=== PATIENT | male | born 1960 | race African-American/Black ===

== ENCOUNTER 2017-11-12 11:31 | Observation (INO) | payer OTHER ==
--- NOTE | 2017-11-12 12:58 | PDOC ---
History of Present Illness - General Chief Complaint: Blood Pressure Problem Stated Complaint: LOW BLOOD PRESSURE Time Seen by Provider: 11/12/17 12:49 History Source: EMS - History of Present Illness Initial Comments: 11/12/17 12:58 Patient is a 57 year old male with a PMH of epilepsy, NIDDM, Vitamin D deficiency, GERD, presents to our ED following conflicting U/S reports that showed a clot in the L IJV. As per [facility] paperwork, patient @ baseline mental status. VS remarkable for BP 104/72 Past History - Past Medical History Allergies/Adverse Reactions: Allergies Allergy/AdvReac Type Severity Reaction Status Date / Time No Known Allergies Allergy Verified 11/12/17 14:31 Home Medications: Ambulatory Orders Acetaminophen Oral Solution [Tylenol Oral Solution -] 20.3 ml GT DAILY 11/12/17 Acetaminophen [Tylenol] 650 mg GT Q6H PRN 11/12/17 Albuterol 0.083% Nebulizer Shanae [Ventolin 0.083% Nebulizer Soln -] 1 neb NEB Q6H 11/12/17 Ascorbic Acid [Vitamin C] 500 mg GT DAILY 11/12/17 Calcium Carbonate/Vitamin D3 [Calcium 500 + Vit D 200 Caplet] 1 each GT DAILY Collagenase Clostridium Hist. [Santyl] 250 unit TP DAILY 11/12/17 Ergocalciferol (Vitamin D2) [Vitamin D2] 50,000 unit GT FR 11/12/17 Famotidine 20 mg GT DAILY 11/12/17 Ferrous Sulfate *Liquid* [Feosol] 6.8 ml GT BID 11/12/17 Fludrocortisone Acetate 0.1 mg GT DAILY 11/12/17 Gabapentin 300 mg GT BID 11/12/17 Heparin - 5,000 unit SQ Q12H 11/12/17 L. Acidophilus/Pectin, [place] [Acidophilus Capsule] 2 each GT DAILY 11/12/17 Magnesium Oxide 400 mg GT BID 11/12/17 Meropenem [Merrem] 1 gm IV Q8H 11/12/17 Midodrine HCl 5 mg GT TID 11/12/17 Multivitamins [Tab-A-Vit -] 1 tab GT DAILY 11/12/17 Oxycodone HCl/Acetaminophen [Percocet 5-325 mg Tablet] 2 tab GT Q4H PRN Valproic Acid (As Sodium Salt) [Valproic Acid] 10 ml GT BID 11/12/17 levETIRAcetam [Keppra Oral Solution -] 1,500 mg GT Q12H 11/12/17 Review of Systems - Review of Systems Able to Perform ROS?: No (non-verbal @ baseline) *Physical Exam - Vital Signs Last Vital Signs Temp Pulse Resp BP Pulse Ox 16 11/12/17 11:40 - Physical Exam Comments: 11/12/17 14:54 Alert, tracks with eyes, s/p R sided craniectomy Contracted B/L UE; edematous, non-erythematous LUE, 2+ radial pulses B/L, Lungs CLTA RRR, S1/S2 Soft abdomen, no hernia/mass ED Treatment Course - LABORATORY CBC & Chemistry Diagram: 11/12/17 15:50 11/12/17 15:50 Medical Decision Making - Medical Decision Making 11/12/17 13:05 57 year old male w/severe CP with a concern for clot in L IJV. Physical exam significant for LUE edema, 2+ pulse, severe contraction. Will repeat U/S to r/ o clot. Basic labs pending 11/12/17 14:56 Bedside U/S shows no clot in IJV/Cephalic/Brachial veins; CBC, CMP pending 11/12/17 15:35 Patient remains hypotensive 88/63 -- 2 L IV NS 11/12/17 17:06 CBC 14, Hb 8 -- likely 2/2 to hypotension. No previous laboratory values in EMR CMP significant for elevated LFT's -- will obtain Liver U/S to r/o liver mass, however likely hepatitis. 11/12/17 17:37 Repeat BP 103/71 11/12/17 18:48 BP 102/63 Patient counseled on POC. Responds to voice with double blinks and raising one finger. Patient signed out to Dr. Cid (Resident) and Dr. Baker (Attending). Planned disposition is liver U/S with specific contact to patient's PMD @ [facility] with any significant results and discharge to [facility]. *DC/Admit/Observation/Transfer Diagnosis at time of Disposition: History of diagnostic ultrasound - Discharge Dispostion Disposition: [facility] Condition at time of disposition: Good Admit: No - Referrals Referrals: ON STAFF,NOT [Primary Care Provider] - - Patient Instructions - Post Discharge Activity
[2017-11-12] MEDS ORDERED: SODIUM CHLORIDE 0.9% 500 ML INFUS.BAG IV ONE (14:45)
[2017-11-12 16:20] LABS: BASO % 0.9 % (0-2.0); HEMOGLOBIN 8.3 GM/dL (11.7-16.9); LYMPH % 20.8 % (8-40); MCH 31.5 pg (25.7-33.7); MEAN CELL VOLUME 95.3 fl (80-96); MEAN PLT VOLUME 11.8 fl (7.5-11.1); MONO % 6.3 % (3.8-10.2); PLATELET COUNT 462 K/MM3 (134-434); RBC 2.63 M/mm3 (4.00-5.60); RDW 18.6 % (11.9-15.9); WHITE BLOOD COUNT 14.3 K/mm3 (4.0-10.0)
[2017-11-12 16:29] LABS: INR 1.23 (0.82-1.09); PROTHROMBIN TIME (PATIENT) 13.9 SEC (9.98-11.88)
[2017-11-12 16:32] LABS: ACTIVATED PTT 32.7 SECONDS (26.9-34.4)
[2017-11-12 16:40] LABS: ALBUMIN 1.6 g/dl (3.4-5.0); ANION GAP 5 (8-16); BLOOD UREA NITROGEN 20 mg/dL (7-18); CALCIUM 8.5 mg/dL (8.5-10.1); CHLORIDE 109 mmol/L (98-107); CO2 33 mmol/L (21-32); CREATININE 0.3 mg/dL (0.7-1.3); GLUCOSE,RANDOM 74 mg/dL (74-106); POTASSIUM 3.6 mmol/L (3.5-5.1); SGOT/AST 114 U/L (15-37); SGPT/ALT 134 U/L (12-78); SODIUM 147 mmol/L (136-145)
[2017-11-12 16:41] LABS: ALK PHOS 229 U/L (45-117); BILIRUBIN,TOTAL 0.3 mg/dL (0.2-1.0); TOT PROT 6.9 g/dl (6.4-8.2)
--- NOTE | 2017-11-12 16:50 | PDOC ---
Attending Attestation - HPI HPI: 11/12/17 16:50 The patient is a 57 year old male with a significant past medical history of severe CP, who presents to the emergency department for evaluation following an U/S reports that showed a clot in the left jugular vein. The patient is also hypotensive on arrival. The patient is non verbal. - Medical Decision Making 11/12/17 16:50 Documentation prepared by Nat Talavera, acting as medical device for Justus Boss MD <Nat Talavera - Last Filed: 11/12/17 16:50> - Resident Resident Name: Jayashree Kennedy - ED Attending Attestation I have performed the following: I have examined & evaluated the patient, The case was reviewed & discussed with the resident, I agree w/resident's findings & plan, Exceptions are as noted - Physicial Exam PE: 11/12/17 17:17 pt is awake, non-verbal, doesnt follow commands + right craniectomy scar perrla trach in place LUE edema with picc line in place sacral decub: stage 4 - Medical Decision Making 11/12/17 17:19 Frail-appearing 57-year-old male with history of craniectomy, chronically vent- dependent presents for evaluation of questionable left IJ DVT. Patient is intermittently hypotensive and is afebrile rectally. Upper extremity Doppler ultrasound shows no evidence of DVT. Patient is noted to have mild leukocytosis and mild hypernatremia. H&H is also low without a comparison baseline available. Will hydrate. Will obtain right upper quadrant ultrasound to evaluate for abnormal LFTs. May consider packed cell transfusion. Will contact [facility] for previous lab work. Likely admission. <Justus Boss - Last Filed: 11/12/17 17:20>
[2017-11-12 17:18] LABS: PLATELET ESTIMATE SLT INCREASE
--- NOTE | 2017-11-12 22:29 | PDOC ---
*Physical Exam - Vital Signs Last Vital Signs Temp Pulse Resp BP Pulse Ox 97.5 F L 72 17 102/63 100 11/12/17 18:30 11/12/17 22:08 11/12/17 22:08 11/12/17 18:30 11/12/17 22:08 ED Treatment Course - LABORATORY CBC & Chemistry Diagram: 11/12/17 15:50 11/12/17 15:50 - ADDITIONAL ORDERS Additional order review: Laboratory Results 11/12/17 11/12/17 11/12/17 17:12 15:50 15:50 PT with INR 13.90 H INR 1.23 H PTT (Actin FS) 32.7 Sodium 147 H Potassium 3.6 Chloride 109 H Carbon Dioxide 33 H Anion Gap 5 L BUN 20 H Creatinine 0.3 L Creat Clearance w eGFR > 60 Random Glucose 74 Calcium 8.5 Total Bilirubin 0.3 AST 114 H ALT 134 H Alkaline Phosphatase 229 H Total Protein 6.9 Albumin 1.6 L Stool Occult Blood Negative 11/12/17 15:50 RBC 2.63 L MCV 95.3 MCHC 33.0 RDW 18.6 H MPV 11.8 H Neutrophils % 68.0 Lymphocytes % 20.8 Monocytes % 6.3 Eosinophils % 4.0 Basophils % 0.9 - Medications Given in the ED: ED Medications Discontinued Medications Generic Name Dose Route Start Last Admin Trade Name Freq PRN Reason Stop Dose Admin Sodium Chloride 1,000 ml 11/12/17 14:45 11/12/17 15:03 Normal Saline - IV 11/12/17 14:46 1,000 ml ONCE ONE Administration *DC/Admit/Observation/Transfer Diagnosis at time of Disposition: History of diagnostic ultrasound, Elevated liver enzymes - Discharge Dispostion Disposition: [facility] Condition at time of disposition: Good Admit: Yes - Referrals Referrals: ON STAFF,NOT [Primary Care Provider] - - Patient Instructions - Post Discharge Activity
[2017-11-12] MEDS ORDERED: SODIUM CHLORIDE 1,000 ML IV SCH (23:15)
--- NOTE | 2017-11-12 23:24 | HP ---
CHIEF COMPLAINT: LUE swelling HISTORY OF PRESENT ILLNESS: Patient s a 57 yo nonverbal, M from [facility] with a pmhx of epilepsy, DM, Vit D def, GERD, chronically vented patient, sacral decub stage 4, presented after suspicion of LUE DVT. There were conflicting reports of a DVT. Initial reading from [place] revealed LUE dvt but Duplex reading in ER unremarkable for dvt. Patient denies pain and discomfort. Patient recently completed 28 day course of IV Meropenem via PICC line (LUE) on the for Psuedomonas infection. PICC line is still in place. ER course was notable for: (1) Ast 114, ALT 134, ALK phos 229 Recent Travel: n/a PAST MEDICAL HISTORY: per HPI PAST SURGICAL HISTORY: craniectomy Social History: Smoking: n/a Alcohol:n/a Drugs: n/a Family History: Allergies No Known Allergies Allergy (Verified 11/12/17 14:31) HOME MEDICATIONS: Home Medications Medication Instructions Recorded Acetaminophen Oral Solution 20.3 ml GT DAILY 11/12/17 [Tylenol Oral Solution -] Acetaminophen [Tylenol] 650 mg GT Q6H PRN 11/12/17 Albuterol 0.083% Nebulizer Shanae 1 neb NEB Q6H 11/12/17 [Ventolin 0.083% Nebulizer Soln -] Ascorbic Acid [Vitamin C] 500 mg GT DAILY 11/12/17 Calcium Carbonate/Vitamin D3 1 each GT DAILY 11/12/17 [Calcium 500 + Vit D 200 Caplet] Collagenase Clostridium Hist. 250 unit TP DAILY 11/12/17 [Santyl] Ergocalciferol (Vitamin D2) 50,000 unit GT FR 11/12/17 [Vitamin D2] Famotidine 20 mg GT DAILY 11/12/17 Ferrous Sulfate *Liquid* [Feosol] 6.8 ml GT BID 11/12/17 Fludrocortisone Acetate 0.1 mg GT DAILY 11/12/17 Gabapentin 300 mg GT BID 11/12/17 Heparin - 5,000 unit SQ Q12H 11/12/17 L. Acidophilus/Pectin, [place] 2 each GT DAILY 11/12/17 [Acidophilus Capsule] Magnesium Oxide 400 mg GT BID 11/12/17 Meropenem [Merrem] 1 gm IV Q8H 11/12/17 Midodrine HCl 5 mg GT TID 11/12/17 Multivitamins [Tab-A-Vit -] 1 tab GT DAILY 11/12/17 Oxycodone HCl/Acetaminophen 2 tab GT Q4H PRN 11/12/17 [Percocet 5-325 mg Tablet] Valproic Acid (As Sodium Salt) 10 ml GT BID 11/12/17 [Valproic Acid] levETIRAcetam [Keppra Oral 1,500 mg GT Q12H 11/12/17 Solution -] REVIEW OF SYSTEMS unable to obtain ROS PHYSICAL EXAMINATION Vital Signs - 24 hr 11/12/17 11/12/17 11/12/17 11:35 11:40 12:56 Temperature 96.7 F L Pulse Rate 62 Pulse Rate [ 61 Left Radial] Respiratory 16 16 20 Rate Blood Pressure 104/72 Blood Pressure 98/61 [Right Arm] O2 Sat by Pulse 100 98 Oximetry (%) 11/12/17 11/12/17 11/12/17 13:55 15:36 16:04 Temperature Pulse Rate Pulse Rate [ 60 63 Left Radial] Respiratory 18 16 18 Rate Blood Pressure Blood Pressure 89/60 88/62 [Right Arm] O2 Sat by Pulse 98 98 Oximetry (%) 11/12/17 11/12/17 11/12/17 18:24 18:30 20:22 Temperature 97.5 F L Pulse Rate Pulse Rate [ 64 Left Radial] Respiratory 17 18 16 Rate Blood Pressure Blood Pressure 102/63 [Right Arm] O2 Sat by Pulse 98 Oximetry (%) 11/12/17 22:08 Temperature Pulse Rate 72 Pulse Rate [ Left Radial] Respiratory 17 Rate Blood Pressure Blood Pressure [Right Arm] O2 Sat by Pulse 100 Oximetry (%) GENERAL: frail appearing, alert and coherent, in NAD HEAD: r sided craniectomy scar, L. Facial swelling EYES: Pupils equal, round and reactive to light, anicteric EARS, NOSE, THROAT: oropharynx clear without exudates. Moist mucous membranes. LUNGS: Trach in place, CTA b/l, Vent settings: Rate 16, TV 350, FI02 40, PEEP 5 HEART: Regular rate and rhythm, normal S1 and S2 without murmur, rub or gallop. ABDOMEN: PEG tube, Soft, +BS, no grimacing on palpation UPPER EXTREMITIES: 2+ pulses, LUE swelling LOWER EXTREMITIES: No peripheral edema. Laboratory Results - last 24 hr 11/12/17 11/12/17 11/12/17 15:50 15:50 15:50 WBC 14.3 H RBC 2.63 L Hgb 8.3 L Hct 25.0 L MCV 95.3 MCH 31.5 MCHC 33.0 RDW 18.6 H Plt Count 462 H MPV 11.8 H Neutrophils % 68.0 Lymphocytes % 20.8 Monocytes % 6.3 Eosinophils % 4.0 Basophils % 0.9 Platelet Estimate Slt increase Platelet Comment PT with INR 13.90 H INR 1.23 H PTT (Actin FS) 32.7 Sodium 147 H Potassium 3.6 Chloride 109 H Carbon Dioxide 33 H Anion Gap 5 L BUN 20 H Creatinine 0.3 L Creat Clearance w eGFR > 60 Random Glucose 74 Calcium 8.5 Total Bilirubin 0.3 AST 114 H ALT 134 H Alkaline Phosphatase 229 H Total Protein 6.9 Albumin 1.6 L Stool Occult Blood 11/12/17 17:12 WBC RBC Hgb Hct MCV MCH MCHC RDW Plt Count MPV Neutrophils % Lymphocytes % Monocytes % Eosinophils % Basophils % Platelet Estimate Platelet Comment PT with INR INR PTT (Actin FS) Sodium Potassium Chloride Carbon Dioxide Anion Gap BUN Creatinine Creat Clearance w eGFR Random Glucose Calcium Total Bilirubin AST ALT Alkaline Phosphatase Total Protein Albumin Stool Occult Blood Negative ASSESSMENT/PLAN: Patient s a 57 yo nonverbal, M from [facility] with a pmhx of epilepsy, DM, Vit D def, GERD, chronically vented patient, was found to have elevated LFT's. #Transaminitis -Abdominal US: Unremarkable -FU hep Panel -FU am labs -Liver U/S #LUE/L sided Facial Swelling -PICC line as possible source -Duplex LUE negative for DVT -FU repeat duplex #DM -BGM -ISS #Hx of Epilepsy -cont. home med -Keppra, Valproic acid #FEN -No IV fluids -WNL -Tube feeds Jevity 1.0. Continuous 200ml flush before feeds, 200ml flush after feeds #DVT ppx -Hep SQ BID Visit type - Emergency Visit Emergency Visit: Yes ED Registration Date: 11/12/17 Care time: The patient presented to the Emergency Department on the above date and was hospitalized for further evaluation of their emergent condition. - New Patient This patient is new to me today: Yes Date on this admission: 11/13/17 - Critical Care Critical Care patient: No Hospitalist Screening - Colonoscopy Questionnaire Colonoscopy Questionnaire: Colonoscopy Questionnaire - Patient: 50 - 75 years old and never had a screening colonoscopy: Unknown History of colon or rectal polyps, or CA: Unknown History of IBD, Crohn's disease or UC: Unknown History of abdominal radiation therapy as a child: Unknown - Relative: 1 with colon or rectal CA, or polyps at age 60 or younger: Unknown Colon or rectal CA diagnosed at age 45 or younger: Unknown Multiple relatives with colon or rectal CA: Unknown - Outcome: Screening Result: Negative Screen
[2017-11-13] MEDS: HEPARIN NA (PORCINE) 5,000 UNITS/ML 1ML VIAL SQ SCH ×3 (01:00→22:39)
[2017-11-13] MEDS: levETIRAcetam 500 MG/5 ML ORAL SOLUTION (UNIT-DOSE CUPS) GT SCH ×3 (01:00→22:50)
[2017-11-13] MEDS: ALBUTEROL SO4 0.083% IH SOL 2.5 MG/3 ML VIAL.NEB. NEB SCH ×5 (01:00→20:50)
--- NOTE | 2017-11-13 01:33 | PN ---
Teaching Attending Note Name of Resident: Daija Alamo ATTENDING PHYSICIAN STATEMENT I saw and evaluated the patient. I reviewed the resident's note and discussed the case with the resident. I agree with the resident's findings and plan as documented. SUBJECTIVE: This is a 57 year old man with a history of type 2 DM, seizures, GERD, vitamin D deficiency, ventilator-dependent chronic hypoxic respiratory failure who was sent to the ED from [facility] because of a possible clot in his left internal jugular vein. The patient is non-verbal but nods his head yes/no. He has a PICC in his left arm for a recent course of Merrem. OBJECTIVE: Vital Signs Period Temp Pulse Resp BP Sys/Guzman Pulse Ox Last 24 Hr 96.7 F-97.5 F 60-72 16-20 88-104/60-72 98-100 GENERAL: On vent via trach HEART: S1S2, RRR LUNGS: Clear ABDOMEN: Soft, non-distended, normal BS, G-tube in place EXTREMITIES: (+) edema of LUE, left side of neck and face Laboratory Tests 11/12/17 11/12/17 11/12/17 15:50 15:50 15:50 WBC 14.3 H RBC 2.63 L Hgb 8.3 L Hct 25.0 L MCV 95.3 MCH 31.5 MCHC 33.0 RDW 18.6 H Plt Count 462 H MPV 11.8 H Neutrophils % 68.0 Lymphocytes % 20.8 Monocytes % 6.3 Eosinophils % 4.0 Basophils % 0.9 Platelet Estimate Slt increase Platelet Comment PT with INR 13.90 H INR 1.23 H PTT (Actin FS) 32.7 Sodium 147 H Potassium 3.6 Chloride 109 H Carbon Dioxide 33 H Anion Gap 5 L BUN 20 H Creatinine 0.3 L Creat Clearance w eGFR > 60 Random Glucose 74 Calcium 8.5 Total Bilirubin 0.3 AST 114 H ALT 134 H Alkaline Phosphatase 229 H Total Protein 6.9 Albumin 1.6 L Stool Occult Blood 11/12/17 17:12 WBC RBC Hgb Hct MCV MCH MCHC RDW Plt Count MPV Neutrophils % Lymphocytes % Monocytes % Eosinophils % Basophils % Platelet Estimate Platelet Comment PT with INR INR PTT (Actin FS) Sodium Potassium Chloride Carbon Dioxide Anion Gap BUN Creatinine Creat Clearance w eGFR Random Glucose Calcium Total Bilirubin AST ALT Alkaline Phosphatase Total Protein Albumin Stool Occult Blood Negative Home Medications Medication Instructions Recorded Acetaminophen Oral Solution 20.3 ml GT DAILY 11/12/17 [Tylenol Oral Solution -] Acetaminophen [Tylenol] 650 mg GT Q6H PRN 11/12/17 Albuterol 0.083% Nebulizer Shanae 1 neb NEB Q6H 11/12/17 [Ventolin 0.083% Nebulizer Soln -] Ascorbic Acid [Vitamin C] 500 mg GT DAILY 11/12/17 Calcium Carbonate/Vitamin D3 1 each GT DAILY 11/12/17 [Calcium 500 + Vit D 200 Caplet] Collagenase Clostridium Hist. 250 unit TP DAILY 11/12/17 [Santyl] Ergocalciferol (Vitamin D2) 50,000 unit GT FR 11/12/17 [Vitamin D2] Famotidine 20 mg GT DAILY 11/12/17 Ferrous Sulfate *Liquid* [Feosol] 6.8 ml GT BID 11/12/17 Fludrocortisone Acetate 0.1 mg GT DAILY 11/12/17 Gabapentin 300 mg GT BID 11/12/17 Heparin - 5,000 unit SQ Q12H 11/12/17 L. Acidophilus/Pectin, [place] 2 each GT DAILY 11/12/17 [Acidophilus Capsule] Magnesium Oxide 400 mg GT BID 11/12/17 Meropenem [Merrem] 1 gm IV Q8H 11/12/17 Midodrine HCl 5 mg GT TID 11/12/17 Multivitamins [Tab-A-Vit -] 1 tab GT DAILY 11/12/17 Oxycodone HCl/Acetaminophen 2 tab GT Q4H PRN 11/12/17 [Percocet 5-325 mg Tablet] Valproic Acid (As Sodium Salt) 10 ml GT BID 11/12/17 [Valproic Acid] levETIRAcetam [Keppra Oral 1,500 mg GT Q12H 11/12/17 Solution -] ASSESSMENT AND PLAN: his is a 57 year old man with a history of type 2 DM, seizures, GERD, vitamin D deficiency, ventilator-dependent chronic hypoxic respiratory failure who comes to the ED from [facility] with swelling of his left arm and a possible clot in his left internal jugular vein. 1. LUE swelling - No DVT seen on venous doppler in ED 2. Hepatic transaminitis - No previous labs available - RUQ US is limited but shows gallstones with slightly thickened gallbladder wall - Repeat LFTs in AM and consider HIDA (will not be able to do MRCP secondary to vent) - NPO - IV fluid 3. Hypotension - Continue Florinef, Midodrine - IV fluid 4. Hypernatremia - Probably hypovolemic - IV NS - Monitor electrolytes 5. Chronic hypoxic respiratory failure - Ventilator-dependent 6. Seizure disorder - Continue Keppra, valproic acid 7. Type 2 DM 8. GERD 9. Vitamin D deficiency Continue vitamin D supplementation
[2017-11-13] MEDS ORDERED: oxyCODONE HCL 5 MG TABLET GT PRN (02:03)
[2017-11-13] MEDS ORDERED: ACETAMINOPHEN 650 MG/20.3 ML ORAL SOLUTION (CUPS) GT PRN (02:04)
[2017-11-13 03:31] VITALS: BMI 19.1
[2017-11-13] MEDS: INSULIN SLIDING SCALE (NOVOLOG) 1 VIAL SQ SCH ×4 (06:05→22:40)
--- NOTE | 2017-11-13 07:20 | PN ---
Physical Exam: SUBJECTIVE: Patient seen and examined OBJECTIVE: Vital Signs Intake & Output 11/10/17 11/11/17 11/12/17 11/13/17 23:59 23:59 23:59 23:59 Intake Total 100 424 Output Total 700 Balance 100 -276 Weight 49.169 kg 48.996 kg Period Temp Pulse Resp BP Sys/Guzman Pulse Ox Last 24 Hr 96.7 F-98.6 F 60-78 16-20 88-124/50-72 92-100 GENERAL: The patient is awake, alert, and fully oriented, in no acute distress. HEAD: Normal with no signs of trauma. EYES: PERRL, extraocular movements intact, sclera anicteric, conjunctiva clear. No ptosis. ENT: Ears normal, nares patent, oropharynx clear without exudates, moist mucous membranes. NECK: Trachea midline, full range of motion, supple. LUNGS: Breath sounds equal, clear to auscultation bilaterally, no wheezes, no crackles, no accessory muscle use. HEART: Regular rate and rhythm, S1, S2 without murmur, rub or gallop. ABDOMEN: Soft, nontender, nondistended, normoactive bowel sounds, no guarding, no rebound, no hepatosplenomegaly, no masses. EXTREMITIES: 2+ pulses, warm, well-perfused, no edema. NEUROLOGICAL: Cranial nerves II through XII grossly intact. Normal speech, gait not observed. PSYCH: Normal mood, normal affect. SKIN: Warm, dry, normal turgor, no rashes or lesions noted Laboratory Results - last 24 hr CBC, BMP 11/12/17 15:50 11/12/17 15:50 11/12/17 11/12/17 11/12/17 15:50 15:50 15:50 WBC 14.3 H RBC 2.63 L Hgb 8.3 L Hct 25.0 L MCV 95.3 MCH 31.5 MCHC 33.0 RDW 18.6 H Plt Count 462 H MPV 11.8 H Neutrophils % 68.0 Lymphocytes % 20.8 Monocytes % 6.3 Eosinophils % 4.0 Basophils % 0.9 Platelet Estimate Slt increase Platelet Comment PT with INR 13.90 H INR 1.23 H PTT (Actin FS) 32.7 Sodium 147 H Potassium 3.6 Chloride 109 H Carbon Dioxide 33 H Anion Gap 5 L BUN 20 H Creatinine 0.3 L Creat Clearance w eGFR > 60 POC Glucometer Random Glucose 74 Calcium 8.5 Total Bilirubin 0.3 AST 114 H ALT 134 H Alkaline Phosphatase 229 H Total Protein 6.9 Albumin 1.6 L Stool Occult Blood 11/12/17 11/13/17 17:12 06:04 WBC RBC Hgb Hct MCV MCH MCHC RDW Plt Count MPV Neutrophils % Lymphocytes % Monocytes % Eosinophils % Basophils % Platelet Estimate Platelet Comment PT with INR INR PTT (Actin FS) Sodium Potassium Chloride Carbon Dioxide Anion Gap BUN Creatinine Creat Clearance w eGFR POC Glucometer 162 Random Glucose Calcium Total Bilirubin AST ALT Alkaline Phosphatase Total Protein Albumin Stool Occult Blood Negative Active Medications Generic Name Dose Route Start Last Admin Trade Name Freq PRN Reason Stop Dose Admin Acetaminophen 325 mg 11/13/17 02:04 Tylenol Oral Solution - GT Q4H PRN PAIN LEVEL 6-10 Albuterol Sulfate 1 amp 11/12/17 23:45 11/13/17 01:00 Ventolin 0.083% Nebulizer Soln - NEB 1 amp RQID RADHA Administration Ascorbic Acid 500 mg 11/13/17 10:00 Vitamin C - GT DAILY [facility] Calcium Carbonate/Cholecalciferol 1 tab 11/13/17 10:00 Os-Manuel 500+D - GT DAILY RADHA Collagenase 1 applic 11/13/17 10:00 Santyl - TP DAILY [facility] Ferrous Sulfate 300 mg 11/13/17 10:00 Feosol GT BID RADHA Gabapentin 300 mg 11/13/17 10:00 Neurontin - GT BID RADHA Heparin Sodium (Porcine) 5,000 unit 11/12/17 23:45 11/13/17 01:00 Heparin - SQ 5,000 unit BID RADHA Administration Insulin Aspart 1 vial 11/13/17 07:00 11/13/17 06:05 Novolog Vial Sliding Scale - SQ 2 units ACHS RADHA Administration Protocol Lactobacillus Acidophilus 2 tab 11/13/17 10:00 Bacid - GT DAILY RADHA Levetiracetam 1,500 mg 11/12/17 23:45 11/13/17 01:00 Keppra Oral Solution - GT 1,500 mg BID RADHA Administration Magnesium Oxide 400 mg 11/13/17 10:00 Mag-Ox - GT BID RADHA Midodrine 5 mg 11/13/17 10:00 Proamatine - GT TID-MID RADHA Oxycodone HCl 5 mg 11/13/17 02:03 Roxicodone - GT Q4H PRN PAIN LEVEL 6-10 Ranitidine HCl 150 mg 11/13/17 10:00 Zantac Oral Solution - GT DAILY [facility] Valproate Sodium 500 mg 11/13/17 10:00 Depakene - GT BID RADHA LUE US - 11/12 - IMPRESSION: Very limited examination due to the patient's body habitus. Patient is on a vent and is contracted. There is no evidence of deep venous thromboses involving the left internal jugular, subclavian and brachial vein. There is no evidence of deep venous thromboses in visualized portion of the ulnar and radial vein. There is no evidence of thrombosis in visualized segments of the upper and lower cephalic as well as visualized segments of the upper and lower basilic vein. Correlate clinically to determine further evaluation and follow-up. RUQ U/S 11/12 - IMPRESSION: 1. Limited study with cholelithiasis and mildly heterogeneous liver. 2. Echogenic right kidney consistent with medical renal disease. Please see above discussion. XR - 11/12 - IMPRESSION: Markedly limited study as described above. ASSESSMENT/PLAN: Patient s a 57 yo nonverbal, M from [facility] with a pmhx of epilepsy, DM, Vit D def, GERD, chronically vented patient, was found to have elevated LFT's. #Transaminitis -Abdominal US: Unremarkable -FU hep Panel -FU am labs -Liver U/S #LUE/L sided Facial Swelling -PICC line as possible source -Duplex LUE negative for DVT -FU repeat duplex #DM -BGM -ISS #Hx of Epilepsy -cont. home med -Keppra, Valproic acid #FEN -No IV fluids -WNL -Tube feeds Jevity 1.0. Continuous 200ml flush before feeds, 200ml flush after feeds #DVT ppx -Hep SQ BID
[2017-11-13 08:06] LABS: HEMATOCRIT 25.7 % (35.4-49); HEMOGLOBIN 8.6 GM/dL (11.7-16.9); MCH 31.7 pg (25.7-33.7); MCHC 33.3 g/dl (32.0-35.9); MEAN CELL VOLUME 95.2 fl (80-96); MEAN PLT VOLUME 11.2 fl (7.5-11.1); PLATELET COUNT 466 K/MM3 (134-434); RDW 18.6 % (11.9-15.9); WHITE BLOOD COUNT 14.5 K/mm3 (4.0-10.0)
[2017-11-13 08:23] LABS: ALBUMIN 1.5 g/dl (3.4-5.0); ANION GAP 5 (8-16); BLOOD UREA NITROGEN 22 mg/dL (7-18); CALCIUM 8.3 mg/dL (8.5-10.1); CHLORIDE 109 mmol/L (98-107); CO2 33 mmol/L (21-32); GLUCOSE,RANDOM 108 mg/dL (74-106); MAGNESIUM 2.2 mg/dL (1.8-2.4); POTASSIUM 3.8 mmol/L (3.5-5.1); SODIUM 147 mmol/L (136-145)
[2017-11-13 08:26] LABS: ALK PHOS 205 U/L (45-117); BILIRUBIN,TOTAL 0.2 mg/dL (0.2-1.0); CREATININE 0.4 mg/dL (0.7-1.3); PHOSPHOROUS 3.4 mg/dL (2.5-4.9); SGOT/AST 85 U/L (15-37); SGPT/ALT 110 U/L (12-78); TOT PROT 6.7 g/dl (6.4-8.2)
[2017-11-13] MEDS ORDERED: PT OWN MED DRAWER 7, Y5N ONE ×3 (09:36→22:30)
[2017-11-13] MEDS: VALPROATE SODIUM 250 MG/5 ML UNIT DOSE CUP GT SCH ×2 (09:42→22:39)
[2017-11-13] MEDS: RANITIDINE HCL 150 MG/10 ML UNIT-DOSE GT SCH (09:42)
[2017-11-13] MEDS: ASCORBIC ACID 500 MG TABLET (FP) GT SCH (09:43)
[2017-11-13] MEDS: GABAPENTIN 300 MG CAPSULE (FP) GT SCH ×2 (09:43→22:39)
[2017-11-13] MEDS: LACTOBACILLUS ACIDOPHILUS 1 TABLET GT SCH (09:43)
[2017-11-13] MEDS: CALCIUM 500MG/VIT-D 200 UNITS COMBO TABLET (FP) GT SCH (09:43)
[2017-11-13] MEDS: COLLAGENASE CLOSTRIDIUM HIST. 30 GRAMS TUBE TP SCH (09:43)
[2017-11-13] MEDS: MAGNESIUM OXIDE 400 MG TABLET (FP) GT SCH ×2 (09:43→22:39)
[2017-11-13] MEDS: MIDODRINE HCL 5 MG TABLET GT SCH ×3 (09:43→17:49)
[2017-11-13] MEDS: FERROUS SO4 300 MG/5 ML ORAL SOLN UNIT DOSE CUPS GT SCH ×2 (09:43→22:39)
--- NOTE | 2017-11-13 10:00 | PN ---
Progress Note (short form) - Note Progress Note: ID Asked to look at this 57 year old vent demependent male with PICC line in the left arm. HE was at [facility] where he was receiving 28 days of Meropenem for " pseudomonal infection" via left arm PICC. THis is completed now ( November 10 per chart). ? of Internal jug thrombosis based jah left arm swelling and nusring home ultrasound. Selected Entries 11/12/17 11:35 Temperature 96.7 F L Pulse Rate 62 Respiratory 16 Rate Blood Pressure 104/72 O2 Sat by Pulse 100 Oximetry (%) Left arm swelling Laboratory Tests 11/13/17 11/13/17 06:30 06:30 WBC 14.5 H Hgb 8.6 L Hct 25.7 L Plt Count 466 H Alkaline Phosphatase 205 H Assessment Psuedomonal infection > Currently I have no knowledge of this history other then in the chart but completed 11/10 PICC line ? thrombosis as entire arm swollen Plan Blood cultures now off antibiotics Remove PICC line Wound care multiple unstageable decubs back Ant CORONADO
--- NOTE | 2017-11-13 10:03 | PN ---
Problem List - Problems (1) Status post peripherally inserted central catheter (PICC) central line placement Code(s): Z95.828 - PRESENCE OF OTHER VASCULAR IMPLANTS AND GRAFTS (2) Bacterial infection due to Pseudomonas Code(s): B96.5 - PSEUDOMONAS (MALLEI) CAUSING DISEASES CLASSD [id number]
--- NOTE | 2017-11-13 11:33 | CONS ---
DATE OF CONSULTATION: 11/13/2017 HISTORY OF PRESENT ILLNESS: This is a 57-year-old -[place] male who is vent-dependent with severe cerebral palsy and who was sent to the emergency room because of abnormal ultrasound related to a PICC linein his left arm. The patient is a resident of a long-term residential facility, [facility]. I have no prior details about his antibiotic treatment history other than he was apparently receiving meropenem for a pseudomonal infection for a total of 28 days in the custodial which was to have been completed on November 10. This week, his left arm was noted to be swollen. An ultrasound there showed a clot in the left jugular vein, and according to the notes here, the patient was found to be hypotensive on admission. I reviewed his vital signs here and see that his lowest blood pressure was 88/62. He has not been febrile. He is vent-dependent. An ultrasound obtained here of the upper extremity yesterday was a limited examination, but no evidence of DVT in the left jugular vein, subclavian vein, tracheal vein was noted. He had abnormal liver functions, and a liver ultrasound was also performed. This showed cholelithiasis and a mildly heterogeneous liver. I am asked to see the patient for further evaluation and treatment. His white count here is noted to be 14.5. He has multiple decubitus ulcers, and though he is alert on the ventilator, can offer little additional history other than that mentioned. CURRENT MEDICATIONS: Include magnesium oxide through a G-tube, Neurontin, Keppra, Depakene, Bacid, ranitidine, iron. ALLERGIES: None known. SOCIAL HISTORY: Cerebral palsy custodial resident. No history of smoking or substance abuse. FAMILY HISTORY: Unobtainable. REVIEW OF SYSTEMS: Respiratory: Chronic ventilatory dependency, tracheostomy. Cardiac: No history of chest pain, valvular heart disease. Gastrointestinal: PEG feeding tube. No abdominal pain, diarrhea, or vomiting. Genitourinary: Incontinent of urine, chronic Muhammad catheter. PHYSICAL EXAMINATION: General: Revealed a pleasant man in no acute distress, vent-dependent. Vital signs: His temperature was 97.7, pulse 84, blood pressure 93/53, respirations 16. Neck: With a tracheostomy. Lungs: Bilateral breath sounds. No rales or rhonchi. Heart: S1, S2, regular rhythm, without audible murmur or gallop. Abdomen: G-tube in place. Positive bowel sounds. Soft, not distended, no tenderness or organomegaly. Extremities: Revealed diffuse edema of the left upper extremity and forearm of the left upper extremity. Skin: Multiple large unstageable decubitus ulcers in the back. The white count 14.5, hemoglobin 8.6, platelets 466. BUN 22, creatinine 0.4, AST 85, ALT 110, alkaline phosphatase 205, albumin 1.5. UA currently unavailable. Chest x-ray shows no evidence of acute infiltrate. ASSESSMENT: 1. Suspect partial or complete occlusion related to the peripherally inserted central catheter line. 2. History of pseudomonal infections. I have no details of this regarding the indication for antibiotics, but apparently he received 28 days of meropenem completed November 10. 3. Multiple decubitus ulcers. 4. Chronic ventilatory dependence. 5. Leukocytosis. 6. Elevated liver enzymes. PLAN: 1. At this point, I see little nee to keep the PICC line in. I would have it removed.. 2. Would obtain a set of blood cultures on him for completeness given his elevated WBC count to rule out the possibility of bacteremia from his PICC line. 3. Urinalysis will be obtained, and if he has pyuria, urine culture should also be ordered. EMERALD ESCOBAR M.D. [id number]
--- NOTE | 2017-11-13 12:33 | PN ---
Progress Note, Physician Chief Complaint: events noted ventilator dependent on GT feeds no distress New to [facility]-- transferred from [facility]-- H/O traumatic brain injury , s /p craniotomy, ventilator dependent, multiple pressure sores.Was being treated for osteomyelitis of sacrum with IV Meropenum . - Current Medication List Current Medications: Active Medications Acetaminophen (Tylenol Oral Solution -) 325 mg GT Q4H PRN PRN Reason: PAIN LEVEL 6-10 Albuterol Sulfate (Ventolin 0.083% Nebulizer Soln -) 1 amp NEB RQID [facility] Last Admin: 11/13/17 11:30 Dose: 1 amp Ascorbic Acid (Vitamin C -) 500 mg GT DAILY [facility] Last Admin: 11/13/17 09:43 Dose: 500 mg Calcium Carbonate/Cholecalciferol (Os-Manuel 500+D -) 1 tab GT DAILY [facility] Last Admin: 11/13/17 09:43 Dose: 1 tab Collagenase (Santyl -) 1 applic TP DAILY [facility] Last Admin: 11/13/17 09:43 Dose: 1 applic Ferrous Sulfate (Feosol) 300 mg GT BID [facility] Last Admin: 11/13/17 09:43 Dose: 300 mg Gabapentin (Neurontin -) 300 mg GT BID [facility] Last Admin: 11/13/17 09:43 Dose: 300 mg Heparin Sodium (Porcine) (Heparin -) 5,000 unit SQ BID [facility] Last Admin: 11/13/17 09:44 Dose: 5,000 unit Insulin Aspart (Novolog Vial Sliding Scale -) 1 vial SQ ACHS [facility] PRN Reason: Protocol Last Admin: 11/13/17 11:27 Dose: Not Given Lactobacillus Acidophilus (Bacid -) 2 tab GT DAILY [facility] Last Admin: 11/13/17 09:43 Dose: 2 tab Levetiracetam (Keppra Oral Solution -) 1,500 mg GT BID [facility] Last Admin: 11/13/17 11:31 Dose: 1,500 mg Magnesium Oxide (Mag-Ox -) 400 mg GT BID [facility] Last Admin: 11/13/17 09:43 Dose: 400 mg Midodrine (Proamatine -) 5 mg GT TID-MID [facility] Last Admin: 11/13/17 09:43 Dose: 5 mg Oxycodone HCl (Roxicodone -) 5 mg GT Q4H PRN PRN Reason: PAIN LEVEL 6-10 Ranitidine HCl (Zantac Oral Solution -) 150 mg GT DAILY [facility] Last Admin: 11/13/17 09:42 Dose: 150 mg Valproate Sodium (Depakene -) 500 mg GT BID [facility] Last Admin: 11/13/17 09:42 Dose: 500 mg - Objective Vital Signs: Vital Signs Temperature 97.7 F 11/13/17 08:44 Pulse Rate 84 11/13/17 08:44 Respiratory Rate 19 11/13/17 10:40 Blood Pressure 93/53 11/13/17 08:44 O2 Sat by Pulse Oximetry (%) 96 11/13/17 02:56 Constitutional: Yes: No Distress Cardiovascular: Yes: Regular Rate and Rhythm Respiratory: Yes: Diminished, Mechanically Ventilated Gastrointestinal: Yes: Normal Bowel Sounds, Soft, Other (peg+). No: Tenderness Musculoskeletal: Yes: Other (multiple pressure sores) Edema: No Labs: CBC, BMP 11/13/17 06:30 11/13/17 06:30 INR, PTT INR 1.23 (0.82-1.09) H 11/12/17 15:50 Problem List - Problems (1) Bacterial infection due to Pseudomonas Code(s): B96.5 - PSEUDOMONAS (MALLEI) CAUSING DISEASES CLASSD ELSWHR (2) Status post peripherally inserted central catheter (PICC) central line placement Code(s): Z95.828 - PRESENCE OF OTHER VASCULAR IMPLANTS AND GRAFTS (3) Elevated liver enzymes Code(s): R74.8 - ABNORMAL LEVELS OF OTHER SERUM ENZYMES (4) Functional quadriplegia Code(s): R53.2 - FUNCTIONAL QUADRIPLEGIA (5) Ventilator dependent Code(s): Z99.11 - DEPENDENCE ON RESPIRATOR [VENTILATOR] STATUS (6) Pressure ulcer Code(s): L89.90 - PRESSURE ULCER OF UNSPECIFIED SITE, UNSPECIFIED STAGE Assessment/Plan PLAN ID eval appreciated remove picc line wound care eval supportive care continue with meds LFT trending down
[2017-11-13 18:00] LABS: URINE APPEARANCE CLOUDY; URINE BILIRUBIN NEGATIVE (<2.0 mg/dL); URINE BLOOD NEGATIVE (NEGATIVE); URINE COLOR YELLOW; URINE GLUCOSE (UA) NEGATIVE (NEGATIVE); URINE KETONE NEGATIVE (NEGATIVE); URINE LEUK ESTERASE TRACE (NEGATIVE); URINE NITRITE NEGATIVE (NEGATIVE); URINE UROBILINOGEN NEGATIVE mg/dL (0.2-1.0)
[2017-11-13 18:09] LABS: URINE PROTEIN 1+ (NEGATIVE)
[2017-11-13 18:17] LABS: URINE BACTERIA RARE /hpf (NONE SEEN); URINE MUCUS RARE; YEAST FEW
[2017-11-14] MEDS: INSULIN SLIDING SCALE (NOVOLOG) 1 VIAL SQ SCH ×2 (06:42→11:49)
[2017-11-14] MEDS: ALBUTEROL SO4 0.083% IH SOL 2.5 MG/3 ML VIAL.NEB. NEB SCH ×3 (07:25→15:25)
[2017-11-14 08:33] LABS: BASO % 0.6 % (0-2.0); EOS % 3.9 % (0-4.5); HEMATOCRIT 24.8 % (35.4-49); HEMOGLOBIN 8.4 GM/dL (11.7-16.9); LYMPH % 33.5 % (8-40); MCH 32.1 pg (25.7-33.7); MCHC 33.7 g/dl (32.0-35.9); MEAN CELL VOLUME 95.1 fl (80-96); MEAN PLT VOLUME 11.3 fl (7.5-11.1); MONO % 7.3 % (3.8-10.2); NEUT % 54.7 % (42.8-82.8); PLATELET COUNT 424 K/MM3 (134-434); RDW 18.4 % (11.9-15.9); WHITE BLOOD COUNT 13.7 K/mm3 (4.0-10.0)
[2017-11-14 09:09] LABS: ALBUMIN 1.5 g/dl (3.4-5.0); ALK PHOS 190 U/L (45-117); ANION GAP 5 (8-16); BILIRUBIN,TOTAL 0.3 mg/dL (0.2-1.0); BLOOD UREA NITROGEN 18 mg/dL (7-18); CALCIUM 8.8 mg/dL (8.5-10.1); CHLORIDE 109 mmol/L (98-107); CO2 34 mmol/L (21-32); CREATININE 0.3 mg/dL (0.7-1.3); GLUCOSE,RANDOM 81 mg/dL (74-106); POTASSIUM 4.4 mmol/L (3.5-5.1); SGOT/AST 65 U/L (15-37); SGPT/ALT 86 U/L (12-78); SODIUM 148 mmol/L (136-145); TOT PROT 6.6 g/dl (6.4-8.2)
--- NOTE | 2017-11-14 09:49 | PN ---
Progress Note (short form) - Note Progress Note: Vital Signs - 24 hr 11/13/17 11/13/17 11/13/17 10:40 14:26 15:20 Temperature 98.4 F Pulse Rate 72 Respiratory 19 16 16 Rate Blood Pressure 119/45 O2 Sat by Pulse Oximetry (%) 11/13/17 11/13/17 11/13/17 18:00 19:03 21:00 Temperature 97.9 F Pulse Rate 74 Respiratory 18 18 20 Rate Blood Pressure 92/57 O2 Sat by Pulse 95 Oximetry (%) 11/13/17 11/13/17 11/14/17 22:00 23:10 02:00 Temperature 98.7 F 98.6 F Pulse Rate 76 68 Respiratory 20 20 Rate Blood Pressure 109/63 O2 Sat by Pulse 95 Oximetry (%) 11/14/17 11/14/17 11/14/17 04:00 06:00 07:05 Temperature 98.0 F Pulse Rate 78 Respiratory 18 18 22 Rate Blood Pressure 100/59 O2 Sat by Pulse Oximetry (%) Current Medications Generic Name Dose Route Start Last Admin Trade Name Freq PRN Reason Stop Dose Admin Acetaminophen 325 mg 11/13/17 02:04 Tylenol Oral Solution - GT Q4H PRN PAIN LEVEL 6-10 Albuterol Sulfate 1 amp 11/12/17 23:45 11/14/17 07:25 Ventolin 0.083% Nebulizer Soln - NEB 1 amp RQID [facility] Administration Ascorbic Acid 500 mg 11/13/17 10:00 11/13/17 09:43 Vitamin C - GT 500 mg DAILY [facility] Administration Calcium Carbonate/Cholecalciferol 1 tab 11/13/17 10:00 11/13/17 09:43 Os-Manuel 500+D - GT 1 tab DAILY [facility] Administration Collagenase 1 applic 11/13/17 10:00 11/13/17 09:43 Santyl - TP 1 applic DAILY [facility] Administration Ferrous Sulfate 300 mg 11/13/17 10:00 11/13/17 22:39 Feosol GT 300 mg BID [facility] Administration Gabapentin 300 mg 11/13/17 10:00 11/13/17 22:39 Neurontin - GT 300 mg BID [facility] Administration Heparin Sodium (Porcine) 5,000 unit 11/12/17 23:45 11/13/17 22:39 Heparin - SQ 5,000 unit BID [facility] Administration Insulin Aspart 1 vial 11/13/17 07:00 11/14/17 06:42 Novolog Vial Sliding Scale - SQ Not Given ACHS [facility] Protocol Lactobacillus Acidophilus 2 tab 11/13/17 10:00 11/13/17 09:43 Bacid - GT 2 tab DAILY [facility] Administration Levetiracetam 1,500 mg 11/12/17 23:45 11/13/17 22:50 Keppra Oral Solution - GT 1,500 mg BID [facility] Administration Magnesium Oxide 400 mg 11/13/17 10:00 11/13/17 22:39 Mag-Ox - GT 400 mg BID [facility] Administration Midodrine 5 mg 11/13/17 10:00 11/13/17 17:49 Proamatine - GT 5 mg TID-MID [facility] Administration Oxycodone HCl 5 mg 11/13/17 02:03 Roxicodone - GT Q4H PRN PAIN LEVEL 6-10 Ranitidine HCl 150 mg 11/13/17 10:00 11/13/17 09:42 Zantac Oral Solution - GT 150 mg DAILY [facility] Administration Valproate Sodium 500 mg 11/13/17 10:00 11/13/17 22:39 Depakene - GT 500 mg BID [facility] Administration Laboratory Results - last 24 hr 11/13/17 11/13/17 11/13/17 11:25 14:45 16:55 WBC RBC Hgb Hct MCV MCH MCHC RDW Plt Count MPV Neutrophils % Lymphocytes % Monocytes % Eosinophils % Basophils % Sodium Potassium Chloride Carbon Dioxide Anion Gap BUN Creatinine Creat Clearance w eGFR POC Glucometer 103 114 Random Glucose Calcium Total Bilirubin AST ALT Alkaline Phosphatase Total Protein Albumin Urine Color Yellow Urine Appearance Cloudy Urine pH 6.0 Ur Specific [place] 1.014 Urine Protein 1+ H Urine Glucose (UA) Negative Urine Ketones Negative Urine Blood Negative Urine Nitrite Negative Urine Bilirubin Negative Urine Urobilinogen Negative Ur Leukocyte Esterase Trace Urine WBC (Auto) 8 Urine RBC (Auto) 3 Urine Bacteria Rare Urine Mucus Rare Urine Yeast Few 11/13/17 11/14/17 11/14/17 21:15 06:39 08:02 WBC 13.7 H RBC 2.60 L Hgb 8.4 L Hct 24.8 L MCV 95.1 MCH 32.1 MCHC 33.7 RDW 18.4 H Plt Count 424 MPV 11.3 H Neutrophils % 54.7 Lymphocytes % 33.5 D Monocytes % 7.3 Eosinophils % 3.9 Basophils % 0.6 Sodium Potassium Chloride Carbon Dioxide Anion Gap BUN Creatinine Creat Clearance w eGFR POC Glucometer 114 108 Random Glucose Calcium Total Bilirubin AST ALT Alkaline Phosphatase Total Protein Albumin Urine Color Urine Appearance Urine pH Ur Specific [place] Urine Protein Urine Glucose (UA) Urine Ketones Urine Blood Urine Nitrite Urine Bilirubin Urine Urobilinogen Ur Leukocyte Esterase Urine WBC (Auto) Urine RBC (Auto) Urine Bacteria Urine Mucus Urine Yeast 11/14/17 08:02 WBC RBC Hgb Hct MCV MCH MCHC RDW Plt Count MPV Neutrophils % Lymphocytes % Monocytes % Eosinophils % Basophils % Sodium 148 H Potassium 4.4 Chloride 109 H Carbon Dioxide 34 H Anion Gap 5 L BUN 18 Creatinine 0.3 L D Creat Clearance w eGFR > 60 POC Glucometer Random Glucose 81 D Calcium 8.8 Total Bilirubin 0.3 D AST 65 H D ALT 86 H D Alkaline Phosphatase 190 H Total Protein 6.6 Albumin 1.5 L Urine Color Urine Appearance Urine pH Ur Specific [place] Urine Protein Urine Glucose (UA) Urine Ketones Urine Blood Urine Nitrite Urine Bilirubin Urine Urobilinogen Ur Leukocyte Esterase Urine WBC (Auto) Urine RBC (Auto) Urine Bacteria Urine Mucus Urine Yeast Problem List - Problems (1) Bacterial infection due to Pseudomonas Code(s): B96.5 - PSEUDOMONAS (MALLEI) CAUSING DISEASES CLASSD ELSWHR (2) Status post peripherally inserted central catheter (PICC) central line placement Code(s): Z95.828 - PRESENCE OF OTHER VASCULAR IMPLANTS AND GRAFTS (3) Elevated liver enzymes Code(s): R74.8 - ABNORMAL LEVELS OF OTHER SERUM ENZYMES (4) Functional quadriplegia Code(s): R53.2 - FUNCTIONAL QUADRIPLEGIA (5) Ventilator dependent Code(s): Z99.11 - DEPENDENCE ON RESPIRATOR [VENTILATOR] STATUS (6) Pressure ulcer Code(s): L89.90 - PRESSURE ULCER OF UNSPECIFIED SITE, UNSPECIFIED STAGE
[2017-11-14] MEDS ORDERED: PT OWN MED DRAWER 7, Y5N ONE (10:52)
[2017-11-14] MEDS: RANITIDINE HCL 150 MG/10 ML UNIT-DOSE GT SCH (10:54)
[2017-11-14] MEDS: LACTOBACILLUS ACIDOPHILUS 1 TABLET GT SCH (10:54)
[2017-11-14] MEDS: CALCIUM 500MG/VIT-D 200 UNITS COMBO TABLET (FP) GT SCH (10:54)
[2017-11-14] MEDS: FERROUS SO4 300 MG/5 ML ORAL SOLN UNIT DOSE CUPS GT SCH (10:54)
[2017-11-14] MEDS: MAGNESIUM OXIDE 400 MG TABLET (FP) GT SCH (10:54)
[2017-11-14] MEDS: MIDODRINE HCL 5 MG TABLET GT SCH ×2 (10:54→14:05)
[2017-11-14] MEDS: VALPROATE SODIUM 250 MG/5 ML UNIT DOSE CUP GT SCH (10:54)
[2017-11-14] MEDS: ASCORBIC ACID 500 MG TABLET (FP) GT SCH (10:54)
[2017-11-14] MEDS: GABAPENTIN 300 MG CAPSULE (FP) GT SCH ×2 (10:54→11:12)
[2017-11-14] MEDS: levETIRAcetam 500 MG/5 ML ORAL SOLUTION (UNIT-DOSE CUPS) GT SCH (10:55)
[2017-11-14] MEDS: HEPARIN NA (PORCINE) 5,000 UNITS/ML 1ML VIAL SQ SCH (10:56)
[2017-11-14] MEDS ORDERED: GABAPENTIN 250 MG/5 ML ORAL SOLUTION, 470 ML BOTTLE GT SCH (10:59)
--- NOTE | 2017-11-14 11:29 | PN ---
Progress Note (short form) - Note Progress Note: chart reviewed no fevers comfortable on the vent Vital Signs Period Temp Pulse Resp BP Sys/Guzman Pulse Ox Last 24 Hr 97.9 F-98.7 F 67-78 16-22 92-119/45-63 95-98 cor-rrr lungs decreased bs at bases abd soft,nt ext +edema left arm duplex- no dvt CBC, BMP 11/14/17 08:02 11/14/17 08:02 UA negative blood cultures negative Current Medications Acetaminophen (Tylenol Oral Solution -) 325 mg GT Q4H PRN PRN Reason: PAIN LEVEL 6-10 Albuterol Sulfate (Ventolin 0.083% Nebulizer Soln -) 1 amp NEB RQID [facility] Last Admin: 11/14/17 07:25 Dose: 1 amp Ascorbic Acid (Vitamin C -) 500 mg GT DAILY [facility] Last Admin: 11/14/17 10:54 Dose: 500 mg Calcium Carbonate/Cholecalciferol (Os-Manuel 500+D -) 1 tab GT DAILY [facility] Last Admin: 11/14/17 10:54 Dose: 1 tab Collagenase (Santyl -) 1 applic TP DAILY [facility] Last Admin: 11/13/17 09:43 Dose: 1 applic Ferrous Sulfate (Feosol) 300 mg GT BID [facility] Last Admin: 11/14/17 10:54 Dose: 300 mg Gabapentin (Neurontin Oral Liquid -) 300 mg GT BID [facility] Heparin Sodium (Porcine) (Heparin -) 5,000 unit SQ BID [facility] Last Admin: 11/14/17 10:56 Dose: 5,000 unit Insulin Aspart (Novolog Vial Sliding Scale -) 1 vial SQ ACHS [facility] PRN Reason: Protocol Last Admin: 11/14/17 06:42 Dose: Not Given Lactobacillus Acidophilus (Bacid -) 2 tab GT DAILY [facility] Last Admin: 11/14/17 10:54 Dose: 2 tab Levetiracetam (Keppra Oral Solution -) 1,500 mg GT BID [facility] Last Admin: 11/14/17 10:55 Dose: 1,500 mg Magnesium Oxide (Mag-Ox -) 400 mg GT BID [facility] Last Admin: 11/14/17 10:54 Dose: 400 mg Midodrine (Proamatine -) 5 mg GT TID-MID [facility] Last Admin: 11/14/17 10:54 Dose: 5 mg Oxycodone HCl (Roxicodone -) 5 mg GT Q4H PRN PRN Reason: PAIN LEVEL 6-10 Ranitidine HCl (Zantac Oral Solution -) 150 mg GT DAILY [facility] Last Admin: 11/14/17 10:54 Dose: 150 mg Valproate Sodium (Depakene -) 500 mg GT BID [facility] Last Admin: 11/14/17 10:54 Dose: 500 mg a/p would watch off antibiotics local care to ulcers please call back if needed
--- NOTE | 2017-11-14 11:54 | DS ---
Physical Examination Vital Signs: Vital Signs Temperature 98.0 F 11/14/17 06:00 Pulse Rate 67 11/14/17 10:46 Respiratory Rate 16 11/14/17 10:46 Blood Pressure 107/61 11/14/17 10:46 O2 Sat by Pulse Oximetry (%) 98 11/14/17 10:21 Constitutional: Yes: No Distress, Calm Cardiovascular: Yes: Regular Rate and Rhythm Respiratory: Yes: Mechanically Ventilated Gastrointestinal: Yes: Normal Bowel Sounds, Soft, Other (GT). No: Tenderness Edema: No Labs: CBC, BMP 11/14/17 08:02 11/14/17 08:02 Discharge Summary Reason For Visit: HISTORY OF DIAGNOSTIC ULTRASOUND, ELEVATED LIVER Current Active Problems Bacterial infection due to Pseudomonas (Acute) Functional quadriplegia (Acute) Pressure ulcer (Acute) Status post peripherally inserted central catheter (PICC) central line placement (Acute) Ventilator dependent (Acute) Hospital Course: Admitted for left arm swelling-- no DVT on sono Seen by ID completed antibiotics for osteomyelitis no infection in arm, no wound infection picc line to be removed in [place] stable for dc to [place] Condition: Good - Instructions Diet, Activity, Other Instructions: remove picc line by the provider at [facility] Referrals: ON STAFF,NOT [Primary Care Provider] - Disposition: [facility] - Home Medications Comprehensive Discharge Medication List: Ambulatory Orders Acetaminophen Oral Solution [Tylenol 160mg/5mL Oral Solution -] 20.3 ml GT DAILY 11/12/17 Acetaminophen [Tylenol] 650 mg GT Q6H PRN 11/12/17 Albuterol 0.083% Nebulizer Shanae [Ventolin 0.083% Nebulizer Soln -] 1 neb NEB Q6H 11/12/17 Ascorbic Acid [Vitamin C] 500 mg GT DAILY 11/12/17 Calcium Carbonate/Vitamin D3 [Calcium 500-Vit D3 200 Caplet] 1 each GT DAILY Collagenase Clostridium Hist. [Santyl] 250 unit TP DAILY 11/12/17 Ergocalciferol (Vitamin D2) [Vitamin D2] 50,000 unit GT FR 11/12/17 Famotidine 20 mg GT DAILY 11/12/17 Ferrous Sulfate *Liquid* [Feosol *Liquid*] 6.8 ml GT BID 11/12/17 Fludrocortisone Acetate 0.1 mg GT DAILY 11/12/17 Gabapentin 300 mg GT BID 11/12/17 Heparin - 5,000 unit SQ Q12H 11/12/17 L. Acidophilus/Pectin, [place] [Acidophilus Capsule] 2 each GT DAILY 11/12/17 Magnesium Oxide 400 mg GT BID 11/12/17 Meropenem [Merrem] 1 gm IV Q8H 11/12/17 Midodrine HCl 5 mg GT TID 11/12/17 Multivitamins [Multivit ([facility] Formulary)] 1 tab GT DAILY 11/12/17 Oxycodone HCl/Acetaminophen [Percocet 5-325 mg Tablet] 2 tab GT Q4H PRN Valproic Acid (As Sodium Salt) [Valproic Acid] 10 ml GT BID 11/12/17 levETIRAcetam [Keppra Oral Solution -] 1,500 mg GT Q12H 11/12/17
[2017-11-14 14:04] VITALS: BP 112/45; PULSE 76; TEMP 98.8
[2017-11-14] MEDS: COLLAGENASE CLOSTRIDIUM HIST. 30 GRAMS TUBE TP SCH (15:00)
--- NOTE | 2017-11-14 17:26 | PN ---
Progress Note (short form) - Note Progress Note: Vascular surgery Pt seen and examined. Pt with sacral ulcers, upper back ulcer, right hip, right upper back ulcers. All with eschar and some slough. Would place santyl to all wounds. Ulcer on neck, please place santyl. Ricardo Crouch DO
[2017-11-14] MEDS ORDERED: COLLAGENASE CLOSTRIDIUM HIST. 30 GRAMS TUBE TP SCH (17:30)
== END 2017-11-14 17:11 ==
LOC: JER 11:31 → UNDOADMOB 22:29 → JERBED 22:29 → INTOOBSV 22:29 → JERBED 23:03 → J5S 11-13 01:58
PROVIDERS: ADMIT Internal Medicine; ATTEND Internal Medicine
PROC: 5A1945Z Respiratory Ventilation, 24-96 Consecutive Hours (ICD-10-PCS; principal; 2017-11-12)
PROC: 3E0337Z Introduction of Electrolytic and Water Balance Substance into Peripheral Vein, Percutaneous Approach (ICD-10-PCS; 2017-11-12)
PROC: 3E013GC Introduction of Other Therapeutic Substance into Subcutaneous Tissue, Percutaneous Approach (ICD-10-PCS; 2017-11-12)
DX: R94.5 Abnormal results of liver function studies (principal); R93.8 Abnormal findings on diagnostic imaging of other specified body structures; Z93.0 Tracheostomy status; R60.9 Edema, unspecified; R74.0 Nonspecific elevation of levels of transaminase and lactic acid dehydrogenase [LDH]; R22.2 Localized swelling, mass and lump, trunk; E11.9 Type 2 diabetes mellitus without complications; G40.909 Epilepsy, unspecified, not intractable, without status epilepticus; E55.9 Vitamin D deficiency, unspecified; Z79.01 Long term (current) use of anticoagulants; Z93.1 Gastrostomy status; I95.9 Hypotension, unspecified; E87.0 Hyperosmolality and hypernatremia; J96.11 Chronic respiratory failure with hypoxia; B96.5 Pseudomonas (aeruginosa) (mallei) (pseudomallei) as the cause of diseases classified elsewhere; Z95.828 Presence of other vascular implants and grafts; Z99.11 Dependence on respirator [ventilator] status; G80.8 Other cerebral palsy; L89.129 Pressure ulcer of left upper back, unspecified stage; L89.119 Pressure ulcer of right upper back, unspecified stage; L89.159 Pressure ulcer of sacral region, unspecified stage; L89.219 Pressure ulcer of right hip, unspecified stage; D72.829 Elevated white blood cell count, unspecified
CPT/HCPCS: 36415; 71045-TC-FY; 76705-TC; 80053; 80074; 81003; 81015; 82272; 82962; 83735; 84100; 85025; 85027; 85610; 85730; 87040; 93971; 94002; 94640; 96372; 99285-25; G0378; J1644

== ENCOUNTER 2017-11-19 09:28 | Emergency (ER) | payer OTHER ==
[2017-11-19 09:44] VITALS: BMI 18.8
--- NOTE | 2017-11-19 09:58 | PDOC ---
History of Present Illness - General Stated Complaint: SENT BY PCP,VENT Time Seen by Provider: 11/19/17 09:44 Exam Limitations: Clinical Condition - History of Present Illness Initial Comments: 11/19/17 09:44 57yo M from [facility] chronically vented who presents today due to [place] vent failure. long-term does not have extra vent or respiratory therapist until 11am. Pt is nonverbal at baseline, awake, and tracks movement spontaneously. Past History - Past Medical History Allergies/Adverse Reactions: Allergies Allergy/AdvReac Type Severity Reaction Status Date / Time No Known Allergies Allergy Verified 11/12/17 14:31 Home Medications: Ambulatory Orders Acetaminophen Oral Solution [Tylenol 160mg/5mL Oral Solution -] 20.3 ml GT DAILY 11/12/17 Acetaminophen [Tylenol] 650 mg GT Q6H PRN 11/12/17 Albuterol 0.083% Nebulizer Shanae [Ventolin 0.083% Nebulizer Soln -] 1 neb NEB Q6H 11/12/17 Ascorbic Acid [Vitamin C] 500 mg GT DAILY 11/12/17 Calcium Carbonate/Vitamin D3 [Calcium 500-Vit D3 200 Caplet] 1 each GT DAILY Collagenase Clostridium Hist. [Santyl] 250 unit TP DAILY 11/12/17 Ergocalciferol (Vitamin D2) [Vitamin D2] 50,000 unit GT FR 11/12/17 Famotidine 20 mg GT DAILY 11/12/17 Ferrous Sulfate *Liquid* [Feosol *Liquid*] 6.8 ml GT BID 11/12/17 Fludrocortisone Acetate 0.1 mg GT DAILY 11/12/17 Gabapentin 300 mg GT BID 11/12/17 Heparin - 5,000 unit SQ Q12H 11/12/17 L. Acidophilus/Pectin, [place] [Acidophilus Capsule] 2 each GT DAILY 11/12/17 Magnesium Oxide 400 mg GT BID 11/12/17 Midodrine HCl 5 mg GT TID 11/12/17 Multivitamins [Multivit ([facility] Formulary)] 1 tab GT DAILY 11/12/17 Oxycodone HCl/Acetaminophen [Percocet 5-325 mg Tablet] 2 tab GT Q4H PRN Valproic Acid (As Sodium Salt) [Valproic Acid] 10 ml GT BID 11/12/17 levETIRAcetam [Keppra Oral Solution -] 1,500 mg GT Q12H 11/12/17 Anemia: Yes COPD: No Diabetes: Yes GI Disorders: (gerd) HTN: (hypotention) Seizures: Yes - Surgical History GI Surgery: (g-tube) - Suicide/Smoking/Psychosocial Hx Smoking History: Unknown if ever smoked Have you smoked in the past 12 months: No Hx Alcohol Use: No Drug/Substance Use Hx: No Substance Use Type: None Review of Systems - Review of Systems Able to Perform ROS?: No (Nonverbal condition) *Physical Exam - Vital Signs Last Vital Signs Temp Pulse Resp BP Pulse Ox 98.7 F 94 H 16 121/95 96 11/19/17 09:34 11/19/17 09:34 11/19/17 09:34 11/19/17 09:34 11/19/17 09:34 - Physical Exam Comments: 11/19/17 09:47 GEN: NAD, tracking eye movements spontaneously, on vent, thin-appearing HEENT: nontraumatic, ALYSON, copious secretions from mouth NECK: Trach cuff in proper place, no secretions from stoma noted LUNGS: Transmitted vent sounds noted; clear otherwise; AC mode: Rate 16/TV 350/ FiO2 21%/PEEP 5 CARDIAC: RRR no murmurs ABD:Soft, NT/ND EXT: Cap refill <2sec, DP pulses 2+, no edema BACK: Sacral ulcers bandaged without letthrough 11/19/17 10:20 11/19/17 10:22 Medical Decision Making - Medical Decision Making 11/19/17 09:59 Will keep vented on current settings; no distress, no fevers will call [facility] at 11am for assessment of vent capabilities 11/19/17 11:17 Spoke to nurse of Mr. Rapp at [facility] --Respiratory therapist and functioning ventilator now available --Arranging transport back to [facility] with vent capabilities due to no acute medical conditions currently *DC/Admit/Observation/Transfer Diagnosis at time of Disposition: Ventilator dependent, Functional quadriplegia - Discharge Dispostion Disposition: [facility] FACILITY Condition at time of disposition: Stable Admit: No - Referrals - Patient Instructions Additional Instructions: Pt can continue on current medical treatment. No acute issues currently and can return to [facility]. - Post Discharge Activity
--- NOTE | 2017-11-19 10:47 | PDOC ---
Attending Attestation - Resident Resident Name: RituRahat - ED Attending Attestation I have performed the following: I have examined & evaluated the patient, The case was reviewed & discussed with the resident, I agree w/resident's findings & plan, Exceptions are as noted - Physicial Exam PE: 11/19/17 12:09 awake, non-verbal, vent dependent, afebrile calvarium is deformed trach in place cta - Medical Decision Making 11/19/17 12:25 Patient is a 57-year-old male who is chronically vent-dependent presents from [facility] for event failure. No acute issues are present with the patient. Patient observed in the ER without complications. Then tubing suctioned several times. [facility] contacted and a new event is available. Will discharge. <Justus Boss - Last Filed: 11/19/17 12:09> - HPI HPI: 11/19/17 12:27 The patient is a 57 year old male, with a significant past medical history of epilepsy, NIDDM, Vitamin D deficiency, and GERD, who presents to the emergency department from [facility] for vent failure earlier this morning. Per EMS [facility] does not have an extra vent or respiratory therapist until 11:00 am. Patient's history is limited and is nonverbal at baseline. - Medical Decision Making 11/19/17 12:28 Documentation prepared by Samuel Mayen, acting as medical diagnostic radiographer for Justus Boss MD. <Samuel Mayen - Last Filed: 11/19/17 12:30>
[2017-11-19 12:50] VITALS: BP 120/83; PULSE 88; TEMP 99.1
== END 2017-11-19 13:56 ==
LOC: JER 09:28
DX: Z99.11 Dependence on respirator [ventilator] status (principal); R53.2 Functional quadriplegia; E11.9 Type 2 diabetes mellitus without complications; Z79.84 Long term (current) use of oral hypoglycemic drugs; K21.9 Gastro-esophageal reflux disease without esophagitis; G40.909 Epilepsy, unspecified, not intractable, without status epilepticus; E55.9 Vitamin D deficiency, unspecified
CPT/HCPCS: 99283-25

== ENCOUNTER 2018-01-10 16:29 | Inpatient (IN) | payer OTHER ==
[2018-01-10] MEDS ORDERED: SODIUM CHLORIDE 1,000 ML IV ONE (16:58)
[2018-01-10] MEDS ORDERED: ACETAMINOPHEN 1000 MG/100 ML VIAL (NON FORMULARY) IVPB ONE (16:58)
[2018-01-10] MEDS ORDERED: CEFEPIME HCL/D5W 1 GM/50 ML BAG IVPB ONE (17:02)
[2018-01-10] MEDS ORDERED: VANCOMYCIN 1,000 MG in DEXTROSE 5%-WATER - 250 ML IVPB ONE (17:02)
--- NOTE | 2018-01-10 17:03 | PDOC ---
History of Present Illness - General History Source: EMS, [facility] Records, Old Records Exam Limitations: Clinical Condition (trach, nonverbal) - History of Present Illness Initial Comments: 01/10/18 17:43 The patient is a vent dependent 57 year old male with history of chronic respiratory failure s/p trach, DM, and seizure disorder, sent to the ED from [facility]. The patient was recently admitted to [facility]. While in the hospital, the patient became septic with Acinobacter in sputum. He was treated with antibiotics (Vancomycine and Cefepime) and discharged to the [place] 5 days ago. Patient returns today for hypotension and tachycardia. Patient is nonverbal and unable to provide remainder of history. <Yue Zuniga - Last Filed: 01/10/18 18:31> <Marquis Jean - Last Filed: 01/10/18 20:47> - General Chief Complaint: Shortness of Breath Stated Complaint: RAPID HEARTBEAT Time Seen by Provider: 01/10/18 16:40 Past History <Yue Zuniga - Last Filed: 01/10/18 18:31> - Past Medical History Anemia: Yes COPD: No Diabetes: Yes GI Disorders: (gerd) HTN: (hypotention) Seizures: Yes - Surgical History GI Surgery: (g-tube) - Suicide/Smoking/Psychosocial Hx Smoking History: Unknown if ever smoked Have you smoked in the past 12 months: No Information on smoking cessation initiated: No Hx Alcohol Use: No Drug/Substance Use Hx: No Substance Use Type: None <Marquis Jean - Last Filed: 01/10/18 20:47> - Past Medical History Allergies/Adverse Reactions: Allergies Allergy/AdvReac Type Severity Reaction Status Date / Time No Known Allergies Allergy Verified 01/10/18 16:57 Home Medications: Ambulatory Orders Albuterol 0.083% Nebulizer Shanae [Ventolin 0.083% Nebulizer Soln -] 1 neb NEB Q6H 11/12/17 Ascorbic Acid [Vitamin C] 500 mg GT DAILY 11/12/17 Collagenase Clostridium Hist. [Santyl] 250 unit TP DAILY 11/12/17 Ergocalciferol (Vitamin D2) [Vitamin D2] 8,000 unit GT FR 11/12/17 Famotidine 20 mg GT DAILY 11/12/17 Ferrous Sulfate *Liquid* [Feosol *Liquid*] 6.8 ml GT BID 11/12/17 Gabapentin 150 mg GT BID 11/12/17 L. Acidophilus/Pectin, [place] [Acidophilus Capsule] 2 each GT DAILY 11/12/17 Magnesium Oxide 400 mg GT BID 11/12/17 Midodrine HCl 5 mg GT TID 11/12/17 Valproic Acid (As Sodium Salt) [Valproic Acid] 15 ml GT BID 11/12/17 levETIRAcetam [Keppra Oral Solution -] 1,500 mg GT Q12H 11/12/17 Oxycodone HCl 10 mg PO Q6H PRN #0 tab 12/26/17 Diphenhydramine [Benadryl 12.5 MG/5 ML Oral Solution -] 25 mg GT Q8H PRN ml 06/14 Vancomycin Oral Solution 125 mg PO Q6HPO #30 ml 01/08/18 Review of Systems - Review of Systems Able to Perform ROS?: No (nonverbal, trach) <Marquis Jean - Last Filed: 01/10/18 20:47> *Physical Exam - Vital Signs Last Vital Signs Temp Pulse Resp BP Pulse Ox 100.9 F H 143 H 35 H 92/70 93 L 01/10/18 16:30 01/10/18 17:07 01/10/18 17:07 01/10/18 16:30 01/10/18 17:07 - Physical Exam Comments: 01/10/18 18:23 GENERAL: The patient is awake, nonverbal at baseline. HEAD: Normal with no signs of trauma. EYES: Pupils equal, round and reactive to light, extraocular movements intact, sclera anicteric, conjunctiva clear with no pallor. ENT: Ears normal, nares patent. Moist mucous membranes. Persistently edematous tongue, which is improved per staff and medical records. NECK: Normal range of motion, supple without lymphadenopathy, JVD, or masses. Trach tube is in place and intact with no signficant secretions noted. LUNGS: Coarse breath sounds with end inspiratory rhonchi at the bilateral lung bases. HEART: Regular rate and rhythm, normal S1 and S2 without murmur or rub. ABDOMEN: Soft/nontender/nondistended. No guarding or rebound. No palpable masses. No hepatosplenomegaly. +PEG tube in place and intact. EXTREMITIES: Normal range of motion, no edema. No clubbing or cyanosis. No cords, erythema, or tenderness. NEUROLOGICAL: Unable to assess. SKIN: Warm, Dry, normal turgor. Scattered ulcers to the chin, LUE, and right hip without signs of infection. <Yue Zuniga - Last Filed: 01/10/18 18:31> - Vital Signs Last Vital Signs Temp Pulse Resp BP Pulse Ox 100.9 F H 142 H 14 92/70 96 01/10/18 16:30 01/10/18 16:30 01/10/18 16:30 01/10/18 16:30 01/10/18 16:30 <Marquis Jean - Last Filed: 01/10/18 20:47> Heart Score/ECG Review #1 ECG reviewed & interpreted by me at: 20:41 General ECG Interpretation: Sinus Rhythm (tachy at 116), Normal Intervals (qtc 405), No acute ischemic changes (tall R in V2 unchanged from prior) Compared to previous ECG there are: No significant change (12/13/17) <Marquis Jean - Last Filed: 01/10/18 20:47> ED Treatment Course - LABORATORY CBC & Chemistry Diagram: 01/10/18 18:25 01/10/18 18:25 - RADIOLOGY Radiology Studies Ordered: Category Date Time Status CHEST X-RAY PORTABLE* [RAD] Stat Radiology 01/10/18 16:58 Ordered <Marquis Jean - Last Filed: 01/10/18 20:47> Medical Decision Making - Critical Care Time Total Critical Care Time (minutes): 45 Critical Care Statement: The care of this patient involved high complexity decision making to prevent further life threatening deterioration of the patient 's condition and/or to evaluate & treat vital organ system(s) failure or risk of failure. - Medical Decision Making 01/10/18 17:47 A portion of this note was documented by scribe services under my direction. I have reviewed the details of the note, within reason, and agree with the documentation with the following case summary and management plan written by me. 57-year-old male with history of diabetes, seizure disorder, chronic hypoxic respiratory failure chronically on trach/panic with recent admission for trach change and tachycardia at the intermediate, developed sepsis with Acinetobacter in sputum treated with vancomycin and cefepime with improvement, now sent from [facility] with hypotension and tachycardia. febrile 100.9 rectally, tachycardia to 130, BP [address] with no significant sputum/discharge, PEG in place edematous tongue unchanged/improved compared to prior notes and NH chin, LUE, R hip chronic skin wounds without acute infection lungs coarse with end-inspiratory rhonchi abd soft/nt/nd neuro limited 57-year-old male from intermediate with trach/PEG, chronic hypoxic respiratory failure here with sepsis. Sepsis protocol initiated IV fluids, antipyretics Antibiotics per previous culture results Readmission 01/10/18 19:53 wbc 20, slightly elevated from d/c WBC of 17. Na 150, Cr wnl, trop negative, lactate pending. Heart rate improved to 110 after Tylenol and IV fluids, blood pressure 95 systolic Clinically unchanged. Accepted for inpatient med/surge by Dr. Mahoney (covering [facility] for [facility]), signout given to KARINA Mckeon. 01/10/18 20:22 lactate 2.7, will repeat. <Marquis Jean - Last Filed: 01/10/18 20:47> *DC/Admit/Observation/Transfer - Attestations Scribe Attestion: 01/10/18 18:28 Documentation prepared by Yue Zuniga, acting as biomedical engineering director for Marquis Jean MD. <Yue Zuniga - Last Filed: 01/10/18 18:31> - Discharge Dispostion Decision to Admit order: Yes <Marquis Jean - Last Filed: 01/10/18 20:47> Diagnosis at time of Disposition: Sepsis Qualifiers: Sepsis type: sepsis due to unspecified organism Qualified Code(s): A41.9 - Sepsis, unspecified organism - Discharge Dispostion Condition at time of disposition: Guarded
[2018-01-10 18:40] LABS: URINE APPEARANCE SLCLOUDY; URINE BILIRUBIN NEGATIVE (<2.0 mg/dL); URINE COLOR YELLOW; URINE GLUCOSE (UA) NEGATIVE (NEGATIVE); URINE KETONE NEGATIVE (NEGATIVE); URINE LEUK ESTERASE NEGATIVE (NEGATIVE); URINE NITRITE NEGATIVE (NEGATIVE); URINE PROTEIN NEGATIVE (NEGATIVE); URINE UROBILINOGEN NEGATIVE mg/dL (0.2-1.0)
[2018-01-10 18:53] LABS: INR 1.26 (0.82-1.09); PROTHROMBIN TIME (PATIENT) 14.2 SEC (9.7-13.0)
[2018-01-10 18:55] LABS: ACTIVATED PTT 32.7 SECONDS (25.2-36.5); BASO % 0.4 % (0-2.0); EOS % 1.3 % (0-4.5); HEMATOCRIT 26.9 % (35.4-49); HEMOGLOBIN 8.5 GM/dL (11.7-16.9); LYMPH % 7.4 % (8-40); MCH 30.5 pg (25.7-33.7); MCHC 31.5 g/dl (32.0-35.9); MEAN CELL VOLUME 96.8 fl (80-96); MEAN PLT VOLUME 12.9 fl (7.5-11.1); MONO % 6.5 % (3.8-10.2); NEUT % 84.4 % (42.8-82.8); PLATELET COUNT 275 K/MM3 (134-434); RBC 2.78 M/mm3 (4.00-5.60); RDW 18.8 % (11.9-15.9); WHITE BLOOD COUNT 20.2 K/mm3 (4.0-10.0)
[2018-01-10] MEDS ORDERED: ACETAMINOPHEN INJECTION 100 ML IVPB ONE (18:55)
[2018-01-10] MEDS ORDERED: VANCOMYCIN 1 GRAM (PRE-DOCKED) 1,000 MG/250 ML BAG IVPB ONE (18:55)
[2018-01-10] MEDS ORDERED: CEFEPIME 1 GM/100 ML BAG IVPB ONE (18:56)
[2018-01-10 19:02] LABS: ALBUMIN 1.1 g/dl (3.4-5.0); ALK PHOS 152 U/L (45-117); ANION GAP 5 (8-16); BILIRUBIN,TOTAL 0.1 mg/dL (0.2-1.0); BLOOD UREA NITROGEN 31 mg/dL (7-18); CALCIUM 9.3 mg/dL (8.5-10.1); CHLORIDE 112 mmol/L (98-107); CO2 33 mmol/L (21-32); CREATININE 0.8 mg/dL (0.7-1.3); GLUCOSE,RANDOM 119 mg/dL (74-106); POTASSIUM 4.2 mmol/L (3.5-5.1); SGOT/AST 53 U/L (15-37); SGPT/ALT 34 U/L (12-78); SODIUM 150 mmol/L (136-145); TOT PROT 8.9 g/dl (6.4-8.2)
[2018-01-10 19:25] LABS: VENOUS PC02 41.8 mmHg (38-52); VENOUS PH 7.49 (7.32-7.42); VENOUS PO2 83.5 mmHg (28-48)
[2018-01-10 19:56] LABS: PLATELET ESTIMATE ADEQUATE
--- NOTE | 2018-01-10 20:34 | HP ---
CHIEF COMPLAINT: hypotension and tachycardia PCP: Cyndi MARIA HISTORY OF PRESENT ILLNESS: This is a 57 year old male with a past medical history significant for functional quadriplegia, recent hospitalization for sepsis/PNA, 12/13/17-01/08/18 , who was brought to the ED via ambulance for hypotension and tachycardia. Pt was noted to be febrile in ED. History and ROS obtained from chart as pt is nonverbal. ER course was notable for: (1) WBC 20.2, lactic acid 2.7 (2) (3) PAST MEDICAL HISTORY: chronic respiratory failure s/p trach, multiple pressure ulcers, seizure disorder, anemia, GERD, hypotension, functional quadriplegia PAST SURGICAL HISTORY: tracheostomy G-tube craniectomy IVC filter Social History: Smoking: unk Alcohol: unk Drugs: unk Family History: unk Allergies No Known Allergies Allergy (Verified 01/10/18 16:57) HOME MEDICATIONS: 3 Medication Instructions Recorded Albuterol 0.083% Nebulizer Shanae 1 neb NEB Q6H 11/12/17 [Ventolin 0.083% Nebulizer Soln -] Ascorbic Acid [Vitamin C] 500 mg GT DAILY 11/12/17 Collagenase Clostridium Hist. 250 unit TP DAILY 11/12/17 [Santyl] Ergocalciferol (Vitamin D2) 8,000 unit GT FR 11/12/17 [Vitamin D2] Famotidine 20 mg GT DAILY 11/12/17 Ferrous Sulfate *Liquid* [Feosol 6.8 ml GT BID 11/12/17 *Liquid*] Gabapentin 150 mg GT BID 11/12/17 L. Acidophilus/Pectin, [place] 2 each GT DAILY 11/12/17 [Acidophilus Capsule] Magnesium Oxide 400 mg GT BID 11/12/17 Midodrine HCl 5 mg GT TID 11/12/17 Valproic Acid (As Sodium Salt) 15 ml GT BID 11/12/17 [Valproic Acid] levETIRAcetam [Keppra Oral 1,500 mg GT Q12H 11/12/17 Solution -] Oxycodone HCl 10 mg PO Q6H PRN #0 tab 12/26/17 Diphenhydramine [Benadryl 12.5 25 mg GT Q8H PRN ml 01/05/18 MG/5 ML Oral Solution -] Vancomycin Oral Solution 125 mg PO Q6HPO #30 ml 01/08/18 REVIEW OF SYSTEMS limited due to pt nonverbal CONSTITUTIONAL: Absent: fever, chills, diaphoresis, generalized weakness, malaise, loss of appetite, weight change HEENT: Absent: rhinorrhea, nasal congestion, throat pain, throat swelling, difficulty swallowing, mouth swelling, ear pain, eye pain, visual changes CARDIOVASCULAR: Present: tachycardia, hypotension Absent: chest pain, syncope, palpitations, irregular heart rate, lightheadedness , peripheral edema RESPIRATORY: Absent: cough, shortness of breath, dyspnea with exertion, orthopnea, wheezing, stridor, hemoptysis GASTROINTESTINAL: Absent: abdominal pain, abdominal distension, nausea, vomiting, diarrhea, constipation, melena, hematochezia GENITOURINARY: Absent: dysuria, frequency, urgency, hesitancy, hematuria, flank pain, genital pain MUSCULOSKELETAL: Absent: myalgia, arthralgia, joint swelling, back pain, neck pain SKIN: Absent: rash, itching, pallor HEMATOLOGIC/IMMUNOLOGIC: Absent: easy bleeding, easy bruising, lymphadenopathy, frequent infections ENDOCRINE: Absent: unexplained weight gain, unexplained weight loss, heat intolerance, cold intolerance NEUROLOGIC: Absent: headache, focal weakness or paresthesias, dizziness, unsteady gait, seizure, mental status changes, bladder or bowel incontinence PSYCHIATRIC: Absent: anxiety, depression, suicidal or homicidal ideation, hallucinations. PHYSICAL EXAMINATION Vital Signs - 24 hr 3 01/10/18 01/10/18 16:30 17:07 Temperature 100.9 F H Pulse Rate 142 H 143 H Respiratory 14 35 H Rate Blood Pressure 92/70 O2 Sat by Pulse 96 93 L Oximetry (%) GENERAL: Awake, alert, and nonverbal as per baseline, in no acute distress. HEAD: Normal with no signs of trauma. EYES: Pupils equal, round and reactive to light, extraocular movements intact, sclera anicteric, conjunctiva clear. No lid lag. EARS, NOSE, THROAT: Ears normal, nares patent, oropharynx clear without exudates. Moist mucous membranes. protruding tongue, baseline as per nurse NECK: Normal range of motion, supple without lymphadenopathy, JVD, or masses. LUNGS: Breath sounds + rhonchi scattered, no wheezing HEART: Regular rate and rhythm, normal S1 and S2 without murmur, rub or gallop. ABDOMEN: Soft, nontender, not distended, normoactive bowel sounds, no guarding, no rebound, no masses. No hepatomegaly or splenomegaly. MUSCULOSKELETAL: Normal range of motion at all joints. No bony deformities or tenderness. No CVA tenderness. UPPER EXTREMITIES: 2+ pulses, warm, well-perfused. No cyanosis. No clubbing. No peripheral edema. LOWER EXTREMITIES: 2+ pulses, warm, well-perfused. No calf tenderness. 1+ peripheral edema B/L. NEUROLOGICAL: Cranial nerves II-XII intact. Normal speech. Normal gait. PSYCHIATRIC: Cooperative. Good eye contact. Appropriate mood and affect. SKIN: Warm, dry, normal turgor, no rashes noted, normal capillary refill. Mult pressure ulcers: left shoulder 5.9x5.8x0.6cm, 100%slough, moderate serosanguinous discharge, foul odor, wound edges white, macerated, surrounding skin without erythema R shoulder 3.1cmx3.7cmx0.6cm, 90% slough, moderate serosanguinous discharge, foul odor, wound edges white, macerated, surrounding skin without erythema right hip 2.1x2.5x0.6cm, 100%slough, moderate serosanguinous discharge, foul odor, wound edges white, macerated, surrounding skin without erythema area of erythema/denuded skin proximal to PU 5.4cm x 2.4cm, wound edges white, macerated, surrounding skin without erythema sacrum 12.6x10.3x1.7cm 25%slough, moderate serosanguinous discharge Laboratory Results - last 24 hr 3 01/10/18 01/10/18 01/10/18 18:25 18:25 18:25 WBC 20.2 H RBC 2.78 L Hgb 8.5 L Hct 26.9 L MCV 96.8 H MCH 30.5 MCHC 31.5 L RDW 18.8 H Plt Count 275 MPV 12.9 H Absolute Neuts (auto) 17.0 Neutrophils % 84.4 H Neutrophils % (Manual) 75.0 Band Neutrophils % 11.0 Lymphocytes % 7.4 L D Lymphocytes % (Manual) 6.0 L D Monocytes % 6.5 Monocytes % (Manual) 8 Eosinophils % 1.3 D Basophils % 0.4 Nucleated RBC % 0 Hypochromia 1+ Platelet Estimate Adequate Platelet Comment No clumping noted PT with INR 14.20 H INR 1.26 H PTT (Actin FS) 32.7 VBG pH POC VBG pCO2 POC VBG pO2 Mixed VBG HCO3 Sodium Potassium Chloride Carbon Dioxide Anion Gap BUN Creatinine Creat Clearance w eGFR Random Glucose Lactic Acid Calcium Total Bilirubin AST ALT Alkaline Phosphatase Troponin I Total Protein Albumin Urine Color Yellow Urine Appearance Slcloudy Urine pH 5.0 Ur Specific [place] 1.015 Urine Protein Negative Urine Glucose (UA) Negative Urine Ketones Negative Urine Blood Negative Urine Nitrite Negative Urine Bilirubin Negative Urine Urobilinogen Negative Ur Leukocyte Esterase Negative 3 01/10/18 01/10/18 01/10/18 18:25 18:25 18:25 WBC RBC Hgb Hct MCV MCH MCHC RDW Plt Count MPV Absolute Neuts (auto) Neutrophils % Neutrophils % (Manual) Band Neutrophils % Lymphocytes % Lymphocytes % (Manual) Monocytes % Monocytes % (Manual) Eosinophils % Basophils % Nucleated RBC % Hypochromia Platelet Estimate Platelet Comment PT with INR INR PTT (Actin FS) VBG pH POC VBG pCO2 POC VBG pO2 Mixed VBG HCO3 Sodium 150 H Potassium 4.2 Chloride 112 H Carbon Dioxide 33 H Anion Gap 5 L BUN 31 H Creatinine 0.8 Creat Clearance w eGFR > 60 Random Glucose 119 H Lactic Acid 2.7 H* Calcium 9.3 Total Bilirubin 0.1 L D AST 53 H ALT 34 Alkaline Phosphatase 152 H Troponin I < 0.02 Total Protein 8.9 H Albumin 1.1 L Urine Color Urine Appearance Urine pH Ur Specific [place] Urine Protein Urine Glucose (UA) Urine Ketones Urine Blood Urine Nitrite Urine Bilirubin Urine Urobilinogen Ur Leukocyte Esterase 3 01/10/18 19:05 WBC RBC Hgb Hct MCV MCH MCHC RDW Plt Count MPV Absolute Neuts (auto) Neutrophils % Neutrophils % (Manual) Band Neutrophils % Lymphocytes % Lymphocytes % (Manual) Monocytes % Monocytes % (Manual) Eosinophils % Basophils % Nucleated RBC % Hypochromia Platelet Estimate Platelet Comment PT with INR INR PTT (Actin FS) VBG pH 7.49 H D POC VBG pCO2 41.8 D POC VBG pO2 83.5 H D Mixed VBG HCO3 31.5 H Sodium Potassium Chloride Carbon Dioxide Anion Gap BUN Creatinine Creat Clearance w eGFR Random Glucose Lactic Acid Calcium Total Bilirubin AST ALT Alkaline Phosphatase Troponin I Total Protein Albumin Urine Color Urine Appearance Urine pH Ur Specific [place] Urine Protein Urine Glucose (UA) Urine Ketones Urine Blood Urine Nitrite Urine Bilirubin Urine Urobilinogen Ur Leukocyte Esterase ECG sinus tachycardia vent rate 116, QTC [address]/T wave changes ASSESSMENT/PLAN: 57yM with PMH chronic respiratory failure s/p trach, multiple pressure ulcers, seizure disorder, anemia, GERD, hypotension, functional quadriplegia presented to the ED with fever, tachycardia and hypotension. Sepsis secondary to PNA - recent cultures show intermittent sensitivity to cefepime, will change to meropenem and add one dose tobramycin IVPB - ID consult - 1/2NS @ 75cc/hr chronic respiratory failure - cont vent - pulm consult multiple pressure ulcers - + slough and or eschar on all wounds - santyl to all pressure ulcers - consider sharp debridement seizure disorder - cont home meds hypotension - cont midodrine gerd - cont home famotidine functional quadriplegia - supportive care - at high risk for life threatening complications - recommend palliative care, consult placed DVT PPX - heparin 5000u SC tid FEN - 1/2 NS @ 75cc/hr - bmp in am - may resume tube feed tomorrow Dispo: pt currently requires further inpatient management of his emergent conditions. Visit type - Emergency Visit Emergency Visit: Yes ED Registration Date: 01/10/18 Care time: The patient presented to the Emergency Department on the above date and was hospitalized for further evaluation of their emergent condition. - New Patient This patient is new to me today: Yes Date on this admission: 01/10/18 - Critical Care Critical Care patient: No Hospitalist Screening - Colonoscopy Questionnaire Colonoscopy Questionnaire: Colonoscopy Questionnaire - Patient: 50 - 75 years old and never had a screening colonoscopy: Unknown History of colon or rectal polyps, or CA: Unknown History of IBD, Crohn's disease or UC: Unknown History of abdominal radiation therapy as a child: Unknown - Relative: 1 with colon or rectal CA, or polyps at age 60 or younger: Unknown Colon or rectal CA diagnosed at age 45 or younger: Unknown Multiple relatives with colon or rectal CA: Unknown - Outcome: Screening Result: Negative Screen
[2018-01-10] MEDS ORDERED: MEROPENEM 1 GM in DEXTROSE 5%-WATER 100 ML IVPB ONE (21:15)
[2018-01-10] MEDS ORDERED: TOBRAMYCIN SULFATE IVPB ONE (22:24)
[2018-01-10] MEDS ORDERED: SODIUM CHLORIDE IVPB ONE (22:24)
[2018-01-10] MEDS: ALBUTEROL SO4 0.083% IH SOL 2.5 MG/3 ML VIAL.NEB. NEB SCH (23:14)
[2018-01-10] MEDS: SODIUM CHLORIDE 0.45% 1,000 ML IV SCH (23:41)
[2018-01-11] MEDS ORDERED: HEPARIN NA (PORCINE) 5,000 UNITS/ML 1ML VIAL ONE ×2 (01:17→05:43)
[2018-01-11] MEDS: HEPARIN NA (PORCINE) 5,000 UNITS/ML 1ML VIAL SQ SCH ×4 (01:30→22:55)
[2018-01-11] MEDS: levETIRAcetam 500 MG/5 ML ORAL SOLUTION (UNIT-DOSE CUPS) GT SCH ×3 (01:31→22:55)
[2018-01-11] MEDS: VANCOMYCIN 250 MG/5 ML ORAL SOLUTION PO SCH ×3 (01:31→12:29)
[2018-01-11] MEDS ORDERED: CEFEPIME HCL/D5W 2 GM/50 ML BAG IVPB ONE (04:00)
[2018-01-11 06:56] LABS: BASO % 0.4 % (0-2.0); EOS % 1.6 % (0-4.5); LYMPH % 8.1 % (8-40); MCH 31.3 pg (25.7-33.7); MCHC 32.1 g/dl (32.0-35.9); MEAN CELL VOLUME 97.5 fl (80-96); MEAN PLT VOLUME 12.7 fl (7.5-11.1); MONO % 8.3 % (3.8-10.2); NEUT % 81.6 % (42.8-82.8); PLATELET COUNT 252 K/MM3 (134-434); RBC 2.57 M/mm3 (4.00-5.60); WHITE BLOOD COUNT 24.9 K/mm3 (4.0-10.0)
[2018-01-11 07:10] LABS: ANION GAP 3 (8-16); BLOOD UREA NITROGEN 26 mg/dL (7-18); CALCIUM 8.9 mg/dL (8.5-10.1); CHLORIDE 112 mmol/L (98-107); CO2 32 mmol/L (21-32); CREATININE 0.6 mg/dL (0.7-1.3); GLUCOSE,RANDOM 74 mg/dL (74-106); MAGNESIUM 2.1 mg/dL (1.8-2.4); POTASSIUM 4.6 mmol/L (3.5-5.1); SODIUM 147 mmol/L (136-145)
[2018-01-11] MEDS ORDERED: ALBUTEROL SO4 0.083% IH SOL 2.5 MG/3 ML VIAL.NEB. NEB ONE ×2 (08:44→20:51)
[2018-01-11] MEDS: ALBUTEROL SO4 0.083% IH SOL 2.5 MG/3 ML VIAL.NEB. NEB SCH ×4 (08:48→22:01)
--- NOTE | 2018-01-11 08:56 | EKG ---
Test Reason : Blood Pressure : / mmHG Vent. Rate : 116 BPM Atrial Rate : 116 BPM P-R Int : 124 ms QRS Dur : 078 ms QT Int : 292 ms P-R-T Axes : 076 070 057 degrees QTc Int : 405 ms SINUS TACHYCARDIA INCREASED R/S RATIO IN V1, CONSIDER EARLY TRANSITION OR POSTERIOR INFARCT ABNORMAL ECG WHEN COMPARED WITH ECG OF 13-DEC-2017 13:55, NO SIGNIFICANT CHANGE WAS FOUND Confirmed by KENZIE CORONADO, SHALOM ([id number]) on 01/11/2018 8:55:53 AM Referred By: Confirmed By:SHALOM ESPINO MD
[2018-01-11 09:23] LABS: PLATELET ESTIMATE NORMAL; ROULEAU 1+; TARGET CELLS 1+
[2018-01-11] MEDS: FERROUS SO4 300 MG/5 ML ORAL SOLN UNIT DOSE CUPS GT SCH ×2 (11:13→22:55)
[2018-01-11] MEDS: LACTOBACILLUS ACIDOPHILUS 1 TABLET GT SCH (11:13)
[2018-01-11] MEDS: MIDODRINE HCL 5 MG TABLET GT SCH ×4 (11:13→18:42)
[2018-01-11] MEDS: RANITIDINE HCL 150 MG/10 ML UNIT-DOSE GT SCH (11:14)
[2018-01-11] MEDS: ASCORBIC ACID 500 MG TABLET (FP) GT SCH (11:14)
[2018-01-11] MEDS: MAGNESIUM OXIDE 400 MG TABLET (FP) GT SCH ×2 (11:14→22:58)
[2018-01-11] MEDS: VALPROATE SODIUM 250 MG/5 ML UNIT DOSE CUP GT SCH ×2 (11:37→22:55)
[2018-01-11] MEDS: GABAPENTIN 250 MG/5 ML ORAL SOLUTION, 470 ML BOTTLE PO SCH ×2 (11:38→22:56)
[2018-01-11] MEDS: COLLAGENASE CLOSTRIDIUM HIST. 30 GRAMS TUBE TP SCH (12:30)
--- NOTE | 2018-01-11 12:53 | PN ---
Progress Note (short form) - Note Progress Note: ID consult dictated imp/reccd unfortunate 57 yo man vent dependent multiple decubitus ulcers just discharged 01/08 after prolonged admission from 12/13 with intermittent fevers he is colonized with MDRO per last note from his PMD Dr Carlos- he was being discharged to [place] on comfort/ palliative care now admitted with fever he is on po vancomycin for cdiff antigen positive in the setting of diarrhea source of fevers are multitude- lungs, pressure ulcers difficult cxray given patients body habitus await cultures contact isolation vancomycin/unasyn/tobramycin for now check tobramycin trough before resuming received vancomycin/meropenem/tobramycin in ED Problem List - Problems (1) Fever Code(s): R50.9 - FEVER, UNSPECIFIED (2) Pneumonia Code(s): J18.9 - PNEUMONIA, UNSPECIFIED ORGANISM (3) Pressure ulcer Code(s): L89.90 - PRESSURE ULCER OF UNSPECIFIED SITE, UNSPECIFIED STAGE (4) Ventilator dependent Code(s): Z99.11 - DEPENDENCE ON RESPIRATOR [VENTILATOR] STATUS (5) Functional quadriplegia Code(s): R53.2 - FUNCTIONAL QUADRIPLEGIA
--- NOTE | 2018-01-11 13:05 | PN ---
Progress Note (short form) - Note Progress Note: pt seen/ examined in er well known to me from recent admission unfortunate with multiple medical problems chart reviewed Vital Signs Temp 98.8 F 01/10/18 21:55 Pulse 93 H 01/10/18 21:55 Resp 16 01/11/18 10:36 BP 107/75 01/10/18 21:55 Pulse Ox 93 L 01/10/18 21:55 Intake & Output 01/10/18 01/11/18 01/11/18 23:59 11:59 23:59 Intake Total 2150 Balance 2150 Weight 140 lb Intake: IV 2000 Normal Saline - 1,000 ml 2000 @ 1000 mls/hr IV ONCE ONE Rx#:[id number] IVPB 150 Other: Voiding Method Indwelling Catheter Height 5 ft 3 in Body Mass Index (BMI) 24.7 Active Medications Albuterol Sulfate (Ventolin 0.083% Nebulizer Soln -) 1 amp NEB RQID [facility] Last Admin: 01/11/18 12:33 Dose: 1 amp Ascorbic Acid (Vitamin C -) 500 mg GT DAILY [facility] Last Admin: 01/11/18 11:14 Dose: 500 mg Collagenase (Santyl -) 1 applic TP DAILY [facility] Last Admin: 01/11/18 12:30 Dose: Not Given Ergocalciferol (Drisdol Oral Solution -) 50,000 units PO Fr RADHA Ferrous Sulfate (Feosol) 300 mg GT BID [facility] Last Admin: 01/11/18 11:13 Dose: 300 mg Gabapentin (Neurontin Oral Liquid -) 150 mg PO BID [facility] Last Admin: 01/11/18 11:38 Dose: 150 mg Heparin Sodium (Porcine) (Heparin -) 5,000 unit SQ TID [facility] Last Admin: 01/11/18 05:51 Dose: 5,000 unit Sodium Chloride (1/2 Normal Saline) 1,000 mls @ 75 mls/hr IV ASDIR [facility] Last Admin: 01/10/18 23:41 Dose: 75 mls/hr Ampicillin Sodium/Sulbactam (Sodium 3 gm/ Sodium Chloride) 100 mls @ 200 mls/ hr IVPB Q6H-IV RADHA Vancomycin HCl 1,000 mg/ (Dextrose) 250 mls @ 200 mls/hr IVPB Q24H [facility]; Protocol Lactobacillus Acidophilus (Bacid -) 2 tab GT DAILY [facility] Last Admin: 01/11/18 11:13 Dose: 2 tab Levetiracetam (Keppra Oral Solution -) 1,500 mg GT BID [facility] Last Admin: 01/11/18 11:37 Dose: 1,500 mg Magnesium Oxide (Mag-Ox -) 400 mg GT BID [facility] Last Admin: 01/11/18 11:14 Dose: 400 mg Midodrine (Proamatine -) 5 mg GT TID-MID [facility] Last Admin: 01/11/18 11:22 Dose: Not Given Ranitidine HCl (Zantac Oral Solution -) 150 mg GT DAILY [facility] Last Admin: 01/11/18 11:14 Dose: 150 mg Valproate Sodium (Depakene -) 750 mg GT BID [facility] Last Admin: 01/11/18 11:37 Dose: 750 mg Vancomycin HCl (Vancomycin Oral Solution) 125 mg PO Q6HPO [facility] Last Admin: 01/11/18 12:29 Dose: 125 mg CBC, BMP 01/11/18 06:15 01/11/18 06:15 Physical Constitutional: Yes: Other (awake/ no distress) Eyes: Yes: Conjunctiva Clear HENT: Yes: Other (decreased lip/ facial swelling) Neck: Yes: Other (s/p trach-- vent) Cardiovascular: Yes: Regular Rate and Rhythm Respiratory: Yes: Diminished Gastrointestinal: Yes: Soft Edema: No Wound/Incision: Yes: Other (multple decubitus--- neck/ back/ sacral) Neurological: No: Other a/p fever source -- like;y multiple pneumonia/ sespis/ decubitus overall condition poor continue present care abx contact isolation . will follow Problem List - Problems (1) Fever Code(s): R50.9 - FEVER, UNSPECIFIED (2) Sepsis Code(s): A41.9 - SEPSIS, UNSPECIFIED ORGANISM Qualifiers: Sepsis type: sepsis due to unspecified organism Qualified Code(s): A41.9 - Sepsis, unspecified organism (3) Chronic respiratory failure Code(s): J96.10 - CHRONIC RESPIRATORY FAILURE, UNSP W HYPOXIA OR HYPERCAPNIA (4) Functional quadriplegia Code(s): R53.2 - FUNCTIONAL QUADRIPLEGIA (5) Pressure ulcer Code(s): L89.90 - PRESSURE ULCER OF UNSPECIFIED SITE, UNSPECIFIED STAGE (

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
[2018-01-11] MEDS: VANCOMYCIN 1,000 MG in DEXTROSE 5%-WATER - 250 ML IVPB SCH (15:45)
[2018-01-11] MEDS: AMPICILLIN NA/SULBACTAM NA 3 GM in SODIUM CHLORIDE 100 ML IVPB SCH ×2 (17:23→22:02)
[2018-01-11] MEDS: SODIUM CHLORIDE 0.45% 1,000 ML IV SCH (21:33)
[2018-01-12] MEDS: AMPICILLIN NA/SULBACTAM NA 3 GM in SODIUM CHLORIDE 100 ML IVPB SCH ×3 (03:34→15:06)
[2018-01-12] MEDS: HEPARIN NA (PORCINE) 5,000 UNITS/ML 1ML VIAL SQ SCH ×3 (06:01→21:41)
[2018-01-12 08:20] LABS: BASO % 0.6 % (0-2.0); EOS % 1.2 % (0-4.5); HEMATOCRIT 23.7 % (35.4-49); HEMOGLOBIN 7.6 GM/dL (11.7-16.9); LYMPH % 9.4 % (8-40); MCH 30.8 pg (25.7-33.7); MEAN CELL VOLUME 96.1 fl (80-96); MEAN PLT VOLUME 12.5 fl (7.5-11.1); MONO % 6.2 % (3.8-10.2); NEUT % 82.6 % (42.8-82.8); PLATELET COUNT 302 K/MM3 (134-434); RBC 2.47 M/mm3 (4.00-5.60); RDW 18.9 % (11.9-15.9); WHITE BLOOD COUNT 23.6 K/mm3 (4.0-10.0)
[2018-01-12] MEDS: ALBUTEROL SO4 0.083% IH SOL 2.5 MG/3 ML VIAL.NEB. NEB SCH ×4 (08:52→21:00)
[2018-01-12] MEDS ORDERED: ALBUTEROL SO4 0.083% IH SOL 2.5 MG/3 ML VIAL.NEB. NEB ONE ×2 (08:57→11:56)
[2018-01-12 09:03] LABS: ANION GAP 4 (8-16); BLOOD UREA NITROGEN 20 mg/dL (7-18); CALCIUM 8.5 mg/dL (8.5-10.1); CHLORIDE 114 mmol/L (98-107); CO2 31 mmol/L (21-32); CREATININE 0.5 mg/dL (0.7-1.3); GLUCOSE,RANDOM 72 mg/dL (74-106); POTASSIUM 4.1 mmol/L (3.5-5.1); SGOT/AST 27 U/L (15-37); SGPT/ALT 22 U/L (12-78); SODIUM 149 mmol/L (136-145)
[2018-01-12 09:05] LABS: ALK PHOS 121 U/L (45-117); BILIRUBIN,TOTAL 0.3 mg/dL (0.2-1.0); TOT PROT 7.5 g/dl (6.4-8.2)
[2018-01-12 09:17] LABS: ALBUMIN 0.9 g/dl (3.4-5.0)
[2018-01-12] MEDS: MIDODRINE HCL 5 MG TABLET GT SCH ×3 (09:59→18:01)
[2018-01-12] MEDS ORDERED: levETIRAcetam 500 MG TABLET (FP) PO ONE (10:00)
[2018-01-12] MEDS: levETIRAcetam 500 MG/5 ML ORAL SOLUTION (UNIT-DOSE CUPS) GT SCH (10:00)
[2018-01-12] MEDS: VALPROATE SODIUM 250 MG/5 ML UNIT DOSE CUP GT SCH ×2 (10:01→21:40)
[2018-01-12] MEDS: GABAPENTIN 250 MG/5 ML ORAL SOLUTION, 470 ML BOTTLE PO SCH (10:01)
[2018-01-12] MEDS: RANITIDINE HCL 150 MG/10 ML UNIT-DOSE GT SCH (10:01)
[2018-01-12] MEDS: LACTOBACILLUS ACIDOPHILUS 1 TABLET GT SCH (10:01)
[2018-01-12] MEDS: MAGNESIUM OXIDE 400 MG TABLET (FP) GT SCH ×2 (10:01→21:41)
[2018-01-12] MEDS: FERROUS SO4 300 MG/5 ML ORAL SOLN UNIT DOSE CUPS GT SCH ×2 (10:02→21:40)
[2018-01-12] MEDS: ASCORBIC ACID 500 MG TABLET (FP) GT SCH (10:02)
[2018-01-12] MEDS: COLLAGENASE CLOSTRIDIUM HIST. 30 GRAMS TUBE TP SCH (10:24)
[2018-01-12 11:24] LABS: PLATELET ESTIMATE SLT INCREASE
[2018-01-12] MEDS ORDERED: VANCOMYCIN 1 GRAM (PRE-DOCKED) 1,000 MG/250 ML BAG IVPB ONE (11:56)
[2018-01-12] MEDS: VANCOMYCIN 1,000 MG in DEXTROSE 5%-WATER - 250 ML IVPB SCH (12:06)
--- NOTE | 2018-01-12 15:02 | PN ---
Progress Note, Physician History of Present Illness: PULMONARY AWAKE,NO CHANGE ON VENT SUPPORT AC MODE - Current Medication List Current Medications: Active Medications Albuterol Sulfate (Ventolin 0.083% Nebulizer Soln -) 1 amp NEB RQID [facility] Last Admin: 01/12/18 11:52 Dose: 1 amp Ascorbic Acid (Vitamin C -) 500 mg GT DAILY [facility] Last Admin: 01/12/18 10:02 Dose: 500 mg Collagenase (Santyl -) 1 applic TP DAILY [facility] Last Admin: 01/12/18 10:24 Dose: 1 applic Ergocalciferol (Drisdol Oral Solution -) 50,000 units PO Fr [facility] Ferrous Sulfate (Feosol) 300 mg GT BID [facility] Last Admin: 01/12/18 10:02 Dose: 300 mg Gabapentin (Neurontin Oral Liquid -) 150 mg PO BID [facility] Last Admin: 01/12/18 10:01 Dose: 150 mg Heparin Sodium (Porcine) (Heparin -) 5,000 unit SQ TID [facility] Last Admin: 01/12/18 13:37 Dose: 5,000 unit Sodium Chloride (1/2 Normal Saline) 1,000 mls @ 75 mls/hr IV ASDIR [facility] Last Admin: 01/11/18 21:33 Dose: 75 mls/hr Ampicillin Sodium/Sulbactam (Sodium 3 gm/ Sodium Chloride) 100 mls @ 200 mls/ hr IVPB Q6H-IV [facility] Last Admin: 01/12/18 10:00 Dose: 200 mls/hr Vancomycin HCl 1,000 mg/ (Dextrose) 250 mls @ 200 mls/hr IVPB Q24H [facility]; Protocol Last Admin: 01/12/18 12:06 Dose: 200 mls/hr Lactobacillus Acidophilus (Bacid -) 2 tab GT DAILY [facility] Last Admin: 01/12/18 10:01 Dose: 2 tab Levetiracetam (Keppra Oral Solution -) 1,500 mg GT BID [facility] Last Admin: 01/12/18 10:00 Dose: 1,500 mg Magnesium Oxide (Mag-Ox -) 400 mg GT BID [facility] Last Admin: 01/12/18 10:01 Dose: 400 mg Midodrine (Proamatine -) 5 mg GT TID-MID [facility] Last Admin: 01/12/18 13:37 Dose: 5 mg Ranitidine HCl (Zantac Oral Solution -) 150 mg GT DAILY [facility] Last Admin: 01/12/18 10:01 Dose: 150 mg Valproate Sodium (Depakene -) 750 mg GT BID [facility] Last Admin: 01/12/18 10:01 Dose: 750 mg Vancomycin HCl (Vancomycin Oral Solution) 250 mg PO Q6HPO [facility] - Objective Vital Signs: Vital Signs Temperature 98.0 F 01/12/18 13:32 Pulse Rate 69 01/12/18 13:32 Respiratory Rate 24 01/12/18 13:49 Blood Pressure 87/63 01/12/18 13:32 O2 Sat by Pulse Oximetry (%) 91 L 01/12/18 13:32 Constitutional: Yes: Calm, Thin Eyes: Yes: WNL HENT: Yes: WNL Neck: Yes: WNL Cardiovascular: Yes: Regular Rate and Rhythm, S1, S2 Respiratory: Yes: Rhonchi (SCATTERED RHONCHI) Gastrointestinal: Yes: Normal Bowel Sounds, Soft, Other (GT) Extremities: Yes: WNL Edema: No Labs: CBC, BMP 01/12/18 07:55 01/12/18 07:55 INR, PTT INR 1.26 (0.82-1.09) H 01/10/18 18:25 Assessment/Plan Problem List - Problems (1) Fever Code(s): R50.9 - FEVER, UNSPECIFIED (2) Acute and chronic respiratory failure Code(s): J96.20 - ACUTE AND CHR RESP FAILURE, UNSP W HYPOXIA OR HYPERCAPNIA (3) Anemia Code(s): D64.9 - ANEMIA, UNSPECIFIED (4) Chronic respiratory failure Code(s): J96.10 - CHRONIC RESPIRATORY FAILURE, UNSP W HYPOXIA OR HYPERCAPNIA (5) Complication of tracheostomy Code(s): J95.00 - UNSPECIFIED TRACHEOSTOMY COMPLICATION (6) Functional quadriplegia Code(s): R53.2 - FUNCTIONAL QUADRIPLEGIA (7) Pneumonia Code(s): J18.9 - PNEUMONIA, UNSPECIFIED ORGANISM (8) Pressure ulcer Code(s): L89.90 - PRESSURE ULCER OF UNSPECIFIED SITE, UNSPECIFIED STAGE (9) Severe flexion contractures of all joints Code(s): M24.50 - CONTRACTURE, UNSPECIFIED JOINT (10) C-DIF Assessment/Plan CONTINUE CURRENT VENT SETTINGS NOT AN OPTIMAL WEANING CANDIDATE ANTIBIOTICS PER ID F/U CHEST X-RAYS MONITOR H+H DR KC
--- NOTE | 2018-01-12 15:13 | PN ---
Progress Note, Physician History of Present Illness: No acute distress Temps down Afebrile WBC remains elevated C difficile PCR - Current Medication List Current Medications: Active Medications Albuterol Sulfate (Ventolin 0.083% Nebulizer Soln -) 1 amp NEB RQID [facility] Last Admin: 01/12/18 11:52 Dose: 1 amp Ascorbic Acid (Vitamin C -) 500 mg GT DAILY [facility] Last Admin: 01/12/18 10:02 Dose: 500 mg Collagenase (Santyl -) 1 applic TP DAILY [facility] Last Admin: 01/12/18 10:24 Dose: 1 applic Ergocalciferol (Drisdol Oral Solution -) 50,000 units PO Fr RADHA Ferrous Sulfate (Feosol) 300 mg GT BID [facility] Last Admin: 01/12/18 10:02 Dose: 300 mg Gabapentin (Neurontin Oral Liquid -) 150 mg PO BID [facility] Last Admin: 01/12/18 10:01 Dose: 150 mg Heparin Sodium (Porcine) (Heparin -) 5,000 unit SQ TID [facility] Last Admin: 01/12/18 13:37 Dose: 5,000 unit Sodium Chloride (1/2 Normal Saline) 1,000 mls @ 75 mls/hr IV ASDIR [facility] Last Admin: 01/11/18 21:33 Dose: 75 mls/hr Ampicillin Sodium/Sulbactam (Sodium 3 gm/ Sodium Chloride) 100 mls @ 200 mls/ hr IVPB Q6H-IV [facility] Last Admin: 01/12/18 15:06 Dose: 200 mls/hr Vancomycin HCl 1,000 mg/ (Dextrose) 250 mls @ 200 mls/hr IVPB Q24H [facility]; Protocol Last Admin: 01/12/18 12:06 Dose: 200 mls/hr Lactobacillus Acidophilus (Bacid -) 2 tab GT DAILY [facility] Last Admin: 01/12/18 10:01 Dose: 2 tab Levetiracetam (Keppra Oral Solution -) 1,500 mg GT BID [facility] Last Admin: 01/12/18 10:00 Dose: 1,500 mg Magnesium Oxide (Mag-Ox -) 400 mg GT BID [facility] Last Admin: 01/12/18 10:01 Dose: 400 mg Midodrine (Proamatine -) 5 mg GT TID-MID [facility] Last Admin: 01/12/18 13:37 Dose: 5 mg Ranitidine HCl (Zantac Oral Solution -) 150 mg GT DAILY [facility] Last Admin: 01/12/18 10:01 Dose: 150 mg Valproate Sodium (Depakene -) 750 mg GT BID [facility] Last Admin: 01/12/18 10:01 Dose: 750 mg Vancomycin HCl (Vancomycin Oral Solution) 250 mg PO Q6HPO [facility] - Objective Vital Signs: Vital Signs Temperature 98.0 F 01/12/18 13:32 Pulse Rate 69 01/12/18 13:32 Respiratory Rate 24 01/12/18 13:49 Blood Pressure 87/63 01/12/18 13:32 O2 Sat by Pulse Oximetry (%) 91 L 01/12/18 13:32 Constitutional: Yes: No Distress, Cachectic Eyes: Yes: Conjunctiva Clear Cardiovascular: Yes: Regular Rate and Rhythm, S1, S2 Respiratory: Yes: Diminished Gastrointestinal: Yes: Normal Bowel Sounds, Soft. No: Tenderness Edema: No Labs: CBC, BMP 01/12/18 07:55 01/12/18 07:55 INR, PTT INR 1.26 (0.82-1.09) H 01/10/18 18:25 Assessment/Plan Fever/ leukocytosis R/O sepsis Respiratory failure + C difficile Await c/s Continue vancomycin/ unasyn + po vanco
--- NOTE | 2018-01-12 15:20 | PN ---
Progress Note (short form) - Note Progress Note: pt seen/ examined in er awake/ comfortable Vital Signs Temp 98.0 F 01/12/18 13:32 Pulse 69 01/12/18 13:32 Resp 24 01/12/18 13:49 BP 87/63 01/12/18 13:32 Pulse Ox 91 L 01/12/18 13:32 Intake & Output 01/11/18 01/12/18 01/12/18 23:59 11:59 23:59 Other: Voiding Method Indwelling Catheter Indwelling Catheter Active Medications Albuterol Sulfate (Ventolin 0.083% Nebulizer Soln -) 1 amp NEB RQID [facility] Last Admin: 01/12/18 11:52 Dose: 1 amp Ascorbic Acid (Vitamin C -) 500 mg GT DAILY [facility] Last Admin: 01/12/18 10:02 Dose: 500 mg Collagenase (Santyl -) 1 applic TP DAILY [facility] Last Admin: 01/12/18 10:24 Dose: 1 applic Ergocalciferol (Drisdol Oral Solution -) 50,000 units PO Fr [facility] Ferrous Sulfate (Feosol) 300 mg GT BID [facility] Last Admin: 01/12/18 10:02 Dose: 300 mg Gabapentin (Neurontin Oral Liquid -) 150 mg PO BID [facility] Last Admin: 01/12/18 10:01 Dose: 150 mg Heparin Sodium (Porcine) (Heparin -) 5,000 unit SQ TID [facility] Last Admin: 01/12/18 13:37 Dose: 5,000 unit Ampicillin Sodium/Sulbactam (Sodium 3 gm/ Sodium Chloride) 100 mls @ 200 mls/ hr IVPB Q6H-IV [facility] Last Admin: 01/12/18 15:06 Dose: 200 mls/hr Vancomycin HCl 1,000 mg/ (Dextrose) 250 mls @ 200 mls/hr IVPB Q24H [facility]; Protocol Last Admin: 01/12/18 12:06 Dose: 200 mls/hr Lactobacillus Acidophilus (Bacid -) 2 tab GT DAILY [facility] Last Admin: 01/12/18 10:01 Dose: 2 tab Levetiracetam (Keppra Oral Solution -) 1,500 mg GT BID [facility] Last Admin: 01/12/18 10:00 Dose: 1,500 mg Magnesium Oxide (Mag-Ox -) 400 mg GT BID [facility] Last Admin: 01/12/18 10:01 Dose: 400 mg Midodrine (Proamatine -) 5 mg GT TID-MID [facility] Last Admin: 01/12/18 13:37 Dose: 5 mg Ranitidine HCl (Zantac Oral Solution -) 150 mg GT DAILY [facility] Last Admin: 01/12/18 10:01 Dose: 150 mg Valproate Sodium (Depakene -) 750 mg GT BID [facility] Last Admin: 01/12/18 10:01 Dose: 750 mg Vancomycin HCl (Vancomycin Oral Solution) 250 mg PO Q6HPO [facility] CBC, BMP 01/12/18 07:55 01/12/18 07:55 Physical Constitutional: Yes: Other (awake/ no distress) Eyes: Yes: Conjunctiva Clear HENT: Yes: Other( lip/ facial swelling) Neck: Yes: Other (s/p trach-- vent) Cardiovascular: Yes: Regular Rate and Rhythm Respiratory: Yes: Diminished Gastrointestinal: Yes: Soft/ non tender . g tube + Edema: No Wound/Incision: Yes: Other (multple decubitus--- neck/ back/ sacral) Neurological: No: Other a/p fever source -- likely multiple pneumonia/ sepsis/ decubitus/ c diff ? overall condition poor continue present care abx contact isolation . start on feeding d/c fluids discussed with Dasia today Palliative consult also requested will follow. Problem List - Problems (1) Fever Code(s): R50.9 - FEVER, UNSPECIFIED (2) Sepsis Code(s): A41.9 - SEPSIS, UNSPECIFIED ORGANISM Qualifiers: Qualified Code(s): A41.9 - Sepsis, unspecified organism (3) Chronic respiratory failure Code(s): J96.10 - CHRONIC RESPIRATORY FAILURE, UNSP W HYPOXIA OR HYPERCAPNIA (4) Functional quadriplegia Code(s): R53.2 - FUNCTIONAL QUADRIPLEGIA (5) Pressure ulcer Code(s): L89.90 - PRESSURE ULCER OF UNSPECIFIED SITE, UNSPECIFIED STAGE (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
[2018-01-12] MEDS: VANCOMYCIN 250 MG/5 ML ORAL SOLUTION PO SCH (18:49)
[2018-01-12] MEDS ORDERED: SODIUM CHLORIDE 250 ML IV STA (21:21)
[2018-01-12 23:07] LABS: ARTERIAL BLD GAS O2 SATURATION 96.3 % (90-98.9); ARTERIAL BLOOD GAS BASE EXCESS 4.2 meq/l (-2-2)
[2018-01-12 23:08] LABS: ALLENS TEST POSITIVE; ARTERIAL BLOOD GAS PO2 79.1 mmHg (80-100); ARTERIAL BLOOD GAS pH 7.51 (7.35-7.45)
[2018-01-13] MEDS: AMPICILLIN NA/SULBACTAM NA 3 GM in SODIUM CHLORIDE 100 ML IVPB SCH ×5 (00:30→21:10)
[2018-01-13] MEDS ORDERED: PT OWN MED DRAWER 7, Y5N ONE ×5 (01:01→20:43)
[2018-01-13] MEDS: GABAPENTIN 250 MG/5 ML ORAL SOLUTION, 470 ML BOTTLE PO SCH ×3 (01:02→21:09)
[2018-01-13] MEDS: VANCOMYCIN 250 MG/5 ML ORAL SOLUTION PO SCH ×4 (01:04→17:35)
[2018-01-13] MEDS: levETIRAcetam 500 MG/5 ML ORAL SOLUTION (UNIT-DOSE CUPS) GT SCH ×3 (01:06→21:15)
[2018-01-13] MEDS ORDERED: SODIUM CHLORIDE 250 ML IV STA (04:43)
[2018-01-13] MEDS: HEPARIN NA (PORCINE) 5,000 UNITS/ML 1ML VIAL SQ SCH ×3 (06:24→21:35)
[2018-01-13 07:43] LABS: BASO % 0.4 % (0-2.0); EOS % 0.7 % (0-4.5); HEMOGLOBIN 7.9 GM/dL (11.7-16.9); LYMPH % 9.6 % (8-40); MCH 31.2 pg (25.7-33.7); MCHC 32.8 g/dl (32.0-35.9); MEAN CELL VOLUME 95.1 fl (80-96); MEAN PLT VOLUME 12.2 fl (7.5-11.1); MONO % 5.9 % (3.8-10.2); NEUT % 83.4 % (42.8-82.8); PLATELET COUNT 320 K/MM3 (134-434); RBC 2.52 M/mm3 (4.00-5.60); RDW 19.2 % (11.9-15.9); WHITE BLOOD COUNT 19.6 K/mm3 (4.0-10.0)
[2018-01-13] MEDS: ALBUTEROL SO4 0.083% IH SOL 2.5 MG/3 ML VIAL.NEB. NEB SCH ×4 (07:50→21:10)
[2018-01-13 08:20] LABS: CHLORIDE 110 mmol/L (98-107); POTASSIUM 4.2 mmol/L (3.5-5.1); SODIUM 144 mmol/L (136-145)
[2018-01-13 08:27] LABS: ALK PHOS 171 U/L (45-117); ANION GAP 6 (8-16); BILIRUBIN,TOTAL 0.1 mg/dL (0.2-1.0); BLOOD UREA NITROGEN 16 mg/dL (7-18); CALCIUM 8.4 mg/dL (8.5-10.1); CO2 28 mmol/L (21-32); CREATININE 0.5 mg/dL (0.7-1.3); GLUCOSE,RANDOM 114 mg/dL (74-106); SGOT/AST 37 U/L (15-37); SGPT/ALT 23 U/L (12-78); TOT PROT 7.1 g/dl (6.4-8.2)
[2018-01-13 08:29] LABS: ALBUMIN 0.9 g/dl (3.4-5.0)
--- NOTE | 2018-01-13 11:22 | PN ---
Progress Note (short form) - Note Progress Note: PULMONARY Vented, poorly responsive. No fevers recorded. Vented on volume assist control with 80% FiO2. Vital Signs Period Temp Pulse Resp BP Sys/Guzman Pulse Ox Last 24 Hr 98.0 F-99.6 F 69-106 16-33 82-110/45-65 90-100 Gen: vented, poorly responsive Heart: RRR Lung: scattered rhonchi Abd: soft, nontender Ext: + edema, contracted CBC, BMP 01/13/18 06:45 01/13/18 06:45 Active Medications Albuterol Sulfate (Ventolin 0.083% Nebulizer Soln -) 1 amp NEB RQID [facility] Last Admin: 01/13/18 07:50 Dose: 1 amp Ascorbic Acid (Vitamin C -) 500 mg GT DAILY [facility] Last Admin: 01/12/18 10:02 Dose: 500 mg Collagenase (Santyl -) 1 applic TP DAILY [facility] Last Admin: 01/12/18 10:24 Dose: 1 applic Ergocalciferol (Drisdol Oral Solution -) 50,000 units PO Fr [facility] Ferrous Sulfate (Feosol) 300 mg GT BID [facility] Last Admin: 01/12/18 21:40 Dose: 300 mg Gabapentin (Neurontin Oral Liquid -) 150 mg PO BID [facility] Last Admin: 01/13/18 01:02 Dose: 150 mg Heparin Sodium (Porcine) (Heparin -) 5,000 unit SQ TID [facility] Last Admin: 01/13/18 06:24 Dose: 5,000 unit Ampicillin Sodium/Sulbactam (Sodium 3 gm/ Sodium Chloride) 100 mls @ 200 mls/ hr IVPB Q6H-IV [facility] Last Admin: 01/13/18 06:24 Dose: 200 mls/hr Vancomycin HCl 1,000 mg/ (Dextrose) 250 mls @ 200 mls/hr IVPB Q24H [facility]; Protocol Last Admin: 01/12/18 12:06 Dose: 200 mls/hr Lactobacillus Acidophilus (Bacid -) 2 tab GT DAILY [facility] Last Admin: 01/12/18 10:01 Dose: 2 tab Levetiracetam (Keppra Oral Solution -) 1,500 mg GT BID [facility] Last Admin: 01/13/18 01:06 Dose: 1,500 mg Magnesium Oxide (Mag-Ox -) 400 mg GT BID [facility] Last Admin: 01/12/18 21:41 Dose: 400 mg Midodrine (Proamatine -) 5 mg GT TID-MID [facility] Last Admin: 01/12/18 18:01 Dose: 5 mg Ranitidine HCl (Zantac Oral Solution -) 150 mg GT DAILY [facility] Last Admin: 01/12/18 10:01 Dose: 150 mg Valproate Sodium (Depakene -) 750 mg GT BID [facility] Last Admin: 01/12/18 21:40 Dose: 750 mg Vancomycin HCl (Vancomycin Oral Solution) 250 mg PO Q6HPO [facility] Last Admin: 01/13/18 06:25 Dose: 250 mg A/P Chronic Respiratory Failure Pneumonia Sacral Decubitus Ulcer Infection +C diff Ag Sepsis Functional Quadriplegia Seizure Disorder Anemia - continue antibiotics per ID - f/u cultures - wound care - taper fio2 to keep Spo2 >90% - continue volume assist control - not a candidate for weaning due to high oxygen requirements and poor mental status - enteral feeds - DVT/GI prophylaxis - recommend palliative care
[2018-01-13] MEDS: FERROUS SO4 300 MG/5 ML ORAL SOLN UNIT DOSE CUPS GT SCH ×2 (11:29→21:08)
[2018-01-13] MEDS: RANITIDINE HCL 150 MG/10 ML UNIT-DOSE GT SCH (11:29)
[2018-01-13] MEDS: VALPROATE SODIUM 250 MG/5 ML UNIT DOSE CUP GT SCH ×2 (11:29→21:08)
[2018-01-13] MEDS: LACTOBACILLUS ACIDOPHILUS 1 TABLET GT SCH (11:31)
[2018-01-13] MEDS: MAGNESIUM OXIDE 400 MG TABLET (FP) GT SCH ×2 (11:31→21:08)
[2018-01-13] MEDS: MIDODRINE HCL 5 MG TABLET GT SCH ×3 (11:31→17:35)
[2018-01-13] MEDS: ASCORBIC ACID 500 MG TABLET (FP) GT SCH (11:32)
--- NOTE | 2018-01-13 12:29 | PN ---
Progress Note, Physician Chief Complaint: Poorly responsive No distress - Current Medication List Current Medications: Active Medications Albuterol Sulfate (Ventolin 0.083% Nebulizer Soln -) 1 amp NEB RQID [facility] Last Admin: 01/13/18 07:50 Dose: 1 amp Amino Acids (Prosource No Carb Liquid Pkt) 30 ml GT BID@0800,1730 [facility] Ascorbic Acid (Vitamin C -) 500 mg GT DAILY [facility] Last Admin: 01/13/18 11:32 Dose: 500 mg Collagenase (Santyl -) 1 applic TP DAILY [facility] Last Admin: 01/12/18 10:24 Dose: 1 applic Ergocalciferol (Drisdol Oral Solution -) 50,000 units PO Fr [facility] Ferrous Sulfate (Feosol) 300 mg GT BID [facility] Last Admin: 01/13/18 11:29 Dose: 300 mg Gabapentin (Neurontin Oral Liquid -) 150 mg PO BID [facility] Last Admin: 01/13/18 11:30 Dose: 150 mg Heparin Sodium (Porcine) (Heparin -) 5,000 unit SQ TID [facility] Last Admin: 01/13/18 06:24 Dose: 5,000 unit Ampicillin Sodium/Sulbactam (Sodium 3 gm/ Sodium Chloride) 100 mls @ 200 mls/ hr IVPB Q6H-IV [facility] Last Admin: 01/13/18 11:29 Dose: 200 mls/hr Vancomycin HCl 1,000 mg/ (Dextrose) 250 mls @ 200 mls/hr IVPB Q24H [facility]; Protocol Last Admin: 01/12/18 12:06 Dose: 200 mls/hr Lactobacillus Acidophilus (Bacid -) 2 tab GT DAILY [facility] Last Admin: 01/13/18 11:31 Dose: 2 tab Levetiracetam (Keppra Oral Solution -) 1,500 mg GT BID [facility] Last Admin: 01/13/18 11:31 Dose: 1,500 mg Magnesium Oxide (Mag-Ox -) 400 mg GT BID [facility] Last Admin: 01/13/18 11:31 Dose: 400 mg Midodrine (Proamatine -) 5 mg GT TID-MID [facility] Last Admin: 01/13/18 11:31 Dose: 5 mg Ranitidine HCl (Zantac Oral Solution -) 150 mg GT DAILY [facility] Last Admin: 01/13/18 11:29 Dose: 150 mg Valproate Sodium (Depakene -) 750 mg GT BID [facility] Last Admin: 01/13/18 11:29 Dose: 750 mg Vancomycin HCl (Vancomycin Oral Solution) 250 mg PO Q6HPO [facility] Last Admin: 01/13/18 11:30 Dose: 250 mg - Objective Vital Signs: Vital Signs Temperature 98.8 F 01/13/18 06:00 Pulse Rate 103 H 01/13/18 06:00 Respiratory Rate 24 01/13/18 10:27 Blood Pressure 92/55 01/13/18 06:00 O2 Sat by Pulse Oximetry (%) 100 01/13/18 02:00 Constitutional: Yes: No Distress Cardiovascular: Yes: Regular Rate and Rhythm Respiratory: Yes: Diminished, Mechanically Ventilated Gastrointestinal: Yes: Normal Bowel Sounds, Soft. No: Tenderness Edema: No Labs: CBC, BMP 01/13/18 06:45 01/13/18 06:45 INR, PTT INR 1.26 (0.82-1.09) H 01/10/18 18:25 Problem List - Problems (1) Clostridium difficile diarrhea Code(s): A04.72 - ENTEROCOLITIS D/T CLOSTRIDIUM DIFFICILE, NOT SPCF RECUR (2) Chronic respiratory failure Code(s): J96.10 - CHRONIC RESPIRATORY FAILURE, UNSP W HYPOXIA OR HYPERCAPNIA (3) Functional quadriplegia Code(s): R53.2 - FUNCTIONAL QUADRIPLEGIA (4) Pressure ulcer Code(s): L89.90 - PRESSURE ULCER OF UNSPECIFIED SITE, UNSPECIFIED STAGE Assessment/Plan PLAN On Antibiotics ID eval noted Poor prognosis palliative care-- ethics consult called supportive care
[2018-01-13] MEDS: LYTES/YERBA SANTA 240 ML BOTTLE MM SCH (14:28)
[2018-01-13] MEDS: VANCOMYCIN 1,000 MG in DEXTROSE 5%-WATER - 250 ML IVPB SCH (15:34)
[2018-01-13 16:43] VITALS: BMI 19.8
--- NOTE | 2018-01-13 16:45 | PN ---
Progress Note, Physician History of Present Illness: No acute distress Low grade temp noted WBC remains elevated C difficile PCR+ - Current Medication List Current Medications: Active Medications Albuterol Sulfate (Ventolin 0.083% Nebulizer Soln -) 1 amp NEB RQID [facility] Last Admin: 01/13/18 11:55 Dose: 1 amp Amino Acids (Prosource No Carb Liquid Pkt) 30 ml GT BID@0800,1730 [facility] Ascorbic Acid (Vitamin C -) 500 mg GT DAILY [facility] Last Admin: 01/13/18 11:32 Dose: 500 mg Collagenase (Santyl -) 1 applic TP DAILY [facility] Last Admin: 01/12/18 10:24 Dose: 1 applic Ergocalciferol (Drisdol Oral Solution -) 50,000 units PO Fr [facility] Ferrous Sulfate (Feosol) 300 mg GT BID [facility] Last Admin: 01/13/18 11:29 Dose: 300 mg Gabapentin (Neurontin Oral Liquid -) 150 mg PO BID [facility] Last Admin: 01/13/18 11:30 Dose: 150 mg Heparin Sodium (Porcine) (Heparin -) 5,000 unit SQ TID [facility] Last Admin: 01/13/18 14:28 Dose: 5,000 unit Ampicillin Sodium/Sulbactam (Sodium 3 gm/ Sodium Chloride) 100 mls @ 200 mls/ hr IVPB Q6H-IV [facility] Last Admin: 01/13/18 15:35 Dose: 200 mls/hr Vancomycin HCl 1,000 mg/ (Dextrose) 250 mls @ 200 mls/hr IVPB Q24H [facility]; Protocol Last Admin: 01/13/18 15:34 Dose: 200 mls/hr Lactobacillus Acidophilus (Bacid -) 2 tab GT DAILY [facility] Last Admin: 01/13/18 11:31 Dose: 2 tab Levetiracetam (Keppra Oral Solution -) 1,500 mg GT BID [facility] Last Admin: 01/13/18 11:31 Dose: 1,500 mg Magnesium Oxide (Mag-Ox -) 400 mg GT BID [facility] Last Admin: 01/13/18 11:31 Dose: 400 mg Midodrine (Proamatine -) 5 mg GT TID-MID [facility] Last Admin: 01/13/18 14:28 Dose: 5 mg Ranitidine HCl (Zantac Oral Solution -) 150 mg GT DAILY [facility] Last Admin: 01/13/18 11:29 Dose: 150 mg Saliva Substitute (Mouthkote Solution -) 1 applic MM DAILY [facility] Last Admin: 01/13/18 14:28 Dose: 1 applic Valproate Sodium (Depakene -) 750 mg GT BID [facility] Last Admin: 01/13/18 11:29 Dose: 750 mg Vancomycin HCl (Vancomycin Oral Solution) 250 mg PO Q6HPO [facility] Last Admin: 01/13/18 11:30 Dose: 250 mg - Objective Vital Signs: Vital Signs Temperature 100.5 F H 01/13/18 13:58 Pulse Rate 120 H 01/13/18 13:58 Respiratory Rate 32 H 01/13/18 14:50 Blood Pressure 100/58 01/13/18 13:58 O2 Sat by Pulse Oximetry (%) 99 01/13/18 16:14 Constitutional: Yes: No Distress, Cachectic Cardiovascular: Yes: Regular Rate and Rhythm, S1, S2 Respiratory: Yes: Mechanically Ventilated Gastrointestinal: Yes: Normal Bowel Sounds, Soft Labs: CBC, BMP 01/13/18 06:45 01/13/18 06:45 INR, PTT INR 1.26 (0.82-1.09) H 01/10/18 18:25 Assessment/Plan Fever/ leukocytosis R/O sepsis Respiratory failure + C difficile Blood c/s no growth Discontinue vancomycin/ unasyn Continue po vanco
[2018-01-13] MEDS: COLLAGENASE CLOSTRIDIUM HIST. 30 GRAMS TUBE TP SCH (17:04)
[2018-01-13] MEDS: AMINO ACIDS/PROTEIN HYDROLYS 30 ML LIQUID.PKT GT SCH (17:35)
[2018-01-14] MEDS: VANCOMYCIN 250 MG/5 ML ORAL SOLUTION PO SCH ×4 (00:53→18:01)
[2018-01-14] MEDS: AMPICILLIN NA/SULBACTAM NA 3 GM in SODIUM CHLORIDE 100 ML IVPB SCH ×2 (02:09→08:45)
[2018-01-14] MEDS: HEPARIN NA (PORCINE) 5,000 UNITS/ML 1ML VIAL SQ SCH ×3 (05:44→21:08)
[2018-01-14] MEDS: ALBUTEROL SO4 0.083% IH SOL 2.5 MG/3 ML VIAL.NEB. NEB SCH ×4 (07:50→20:35)
[2018-01-14] MEDS ORDERED: PT OWN MED DRAWER 7, Y5N ONE ×4 (08:42→20:58)
[2018-01-14] MEDS: AMINO ACIDS/PROTEIN HYDROLYS 30 ML LIQUID.PKT GT SCH ×2 (08:45→18:00)
[2018-01-14] MEDS: levETIRAcetam 500 MG/5 ML ORAL SOLUTION (UNIT-DOSE CUPS) GT SCH ×2 (09:59→21:08)
[2018-01-14] MEDS: VALPROATE SODIUM 250 MG/5 ML UNIT DOSE CUP GT SCH ×2 (10:00→21:07)
[2018-01-14] MEDS: MAGNESIUM OXIDE 400 MG TABLET (FP) GT SCH ×2 (10:00→21:08)
[2018-01-14] MEDS: FERROUS SO4 300 MG/5 ML ORAL SOLN UNIT DOSE CUPS GT SCH ×2 (10:00→21:07)
[2018-01-14] MEDS: LACTOBACILLUS ACIDOPHILUS 1 TABLET GT SCH (10:00)
[2018-01-14] MEDS: MIDODRINE HCL 5 MG TABLET GT SCH ×3 (10:00→18:00)
[2018-01-14] MEDS: RANITIDINE HCL 150 MG/10 ML UNIT-DOSE GT SCH (10:00)
[2018-01-14] MEDS: ASCORBIC ACID 500 MG TABLET (FP) GT SCH (10:00)
[2018-01-14] MEDS: GABAPENTIN 250 MG/5 ML ORAL SOLUTION, 470 ML BOTTLE PO SCH ×2 (10:01→21:07)
--- NOTE | 2018-01-14 11:19 | PN ---
Progress Note, Physician Chief Complaint: Poorly responsive No distress - Current Medication List Current Medications: Active Medications Albuterol Sulfate (Ventolin 0.083% Nebulizer Soln -) 1 amp NEB RQID [facility] Last Admin: 01/13/18 21:10 Dose: 1 amp Amino Acids (Prosource No Carb Liquid Pkt) 30 ml GT BID@0800,1730 [facility] Last Admin: 01/14/18 08:45 Dose: 30 ml Ascorbic Acid (Vitamin C -) 500 mg GT DAILY [facility] Last Admin: 01/14/18 10:00 Dose: 500 mg Collagenase (Santyl -) 1 applic TP DAILY [facility] Last Admin: 01/13/18 17:04 Dose: Not Given Ergocalciferol (Drisdol Oral Solution -) 50,000 units PO Fr@1000 [facility] Ferrous Sulfate (Feosol) 300 mg GT BID [facility] Last Admin: 01/14/18 10:00 Dose: 300 mg Gabapentin (Neurontin Oral Liquid -) 150 mg PO BID [facility] Last Admin: 01/14/18 10:01 Dose: 150 mg Heparin Sodium (Porcine) (Heparin -) 5,000 unit SQ TID [facility] Last Admin: 01/14/18 05:44 Dose: 5,000 unit Ampicillin Sodium/Sulbactam (Sodium 3 gm/ Sodium Chloride) 100 mls @ 200 mls/ hr IVPB Q6H-IV [facility] Last Admin: 01/14/18 08:45 Dose: 200 mls/hr Vancomycin HCl 1,000 mg/ (Dextrose) 250 mls @ 200 mls/hr IVPB Q24H [facility]; Protocol Last Admin: 01/13/18 15:34 Dose: 200 mls/hr Lactobacillus Acidophilus (Bacid -) 2 tab GT DAILY [facility] Last Admin: 01/14/18 10:00 Dose: 2 tab Levetiracetam (Keppra Oral Solution -) 1,500 mg GT BID [facility] Last Admin: 01/14/18 09:59 Dose: 1,500 mg Magnesium Oxide (Mag-Ox -) 400 mg GT BID [facility] Last Admin: 01/14/18 10:00 Dose: 400 mg Midodrine (Proamatine -) 5 mg GT TID-MID [facility] Last Admin: 01/14/18 10:00 Dose: 5 mg Ranitidine HCl (Zantac Oral Solution -) 150 mg GT DAILY [facility] Last Admin: 01/14/18 10:00 Dose: 150 mg Saliva Substitute (Mouthkote Solution -) 1 applic MM DAILY [facility] Last Admin: 01/13/18 14:28 Dose: 1 applic Valproate Sodium (Depakene -) 750 mg GT BID [facility] Last Admin: 01/14/18 10:00 Dose: 750 mg Vancomycin HCl (Vancomycin Oral Solution) 250 mg PO Q6HPO [facility] Last Admin: 01/14/18 05:43 Dose: 250 mg - Objective Vital Signs: Vital Signs Temperature 97.9 F 01/14/18 09:00 Pulse Rate 109 H 01/14/18 09:00 Respiratory Rate 16 01/14/18 09:00 Blood Pressure 93/50 01/14/18 09:00 O2 Sat by Pulse Oximetry (%) 100 01/13/18 21:00 Constitutional: Yes: No Distress Cardiovascular: Yes: Regular Rate and Rhythm Respiratory: Yes: Diminished, Mechanically Ventilated Gastrointestinal: Yes: Normal Bowel Sounds, Soft, Tenderness, Other (GT) Edema: No Labs: CBC, BMP 01/13/18 06:45 01/13/18 06:45 INR, PTT INR 1.26 (0.82-1.09) H 01/10/18 18:25 Problem List - Problems (1) Clostridium difficile diarrhea Code(s): A04.72 - ENTEROCOLITIS D/T CLOSTRIDIUM DIFFICILE, NOT SPCF RECUR (2) Functional quadriplegia Code(s): R53.2 - FUNCTIONAL QUADRIPLEGIA (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 Assessment/Plan PLAN dc Antibiotics per ID ID eval noted Poor prognosis, outcome is poor pain control-- oxycodone prn palliative care-- ethics consult called supportive care
[2018-01-14] MEDS ORDERED: oxyCODONE HCL 5 MG TABLET PO PRN (11:42)
--- NOTE | 2018-01-14 11:45 | PN ---
Progress Note (short form) - Note Progress Note: opens eyes trach to vent Vital Signs Period Temp Pulse Resp BP Sys/Guzman Pulse Ox Last 24 Hr 97.6 F-100.5 F 105-120 16-32 82-107/46-58 99-100 cor-rrr lungs decreased bs at bases abd soft, nt ext contracted multiple decubs cdiff pcr positive CBC, BMP 01/13/18 06:45 01/13/18 06:45 Microbiology 01/10/18 18:33 Urine - Urine - Catheterized Urine Culture - Final Enterobacter Aerogenes 01/10/18 18:33 Blood - Peripheral Venous Blood Culture - Preliminary NO GROWTH OBTAINED AFTER 72 HOURS, INCUBATION TO CONTINUE FOR 2 DAYS. 01/10/18 09:40 Sputum - Endotrachea Suction/Ventilator Gram Stain - Final 01/10/18 09:40 Sputum - Endotrachea Suction/Ventilator Sputum Culture - Preliminary Non Lactose Fermenting Gnb Non Lactose Fermenting Gnb#2 Non Lactose Fermenting Gnb#3 01/12/18 12:10 Stool Clostridium difficile Antigen (GISELE) - Final 01/12/18 12:10 Stool Clostridium difficile Toxin Assay - Final imp/reccd as per prior note will treat for cdiff with po vancomycin d/c iv vanco and unasyn palliative care eval in progress Problem List - Problems (1) Fever Code(s): R50.9 - FEVER, UNSPECIFIED (2) Pneumonia Code(s): J18.9 - PNEUMONIA, UNSPECIFIED ORGANISM (3) Pressure ulcer Code(s): L89.90 - PRESSURE ULCER OF UNSPECIFIED SITE, UNSPECIFIED STAGE (4) Ventilator dependent Code(s): Z99.11 - DEPENDENCE ON RESPIRATOR [VENTILATOR] STATUS (5) Functional quadriplegia Code(s): R53.2 - FUNCTIONAL QUADRIPLEGIA
[2018-01-14] MEDS: COLLAGENASE CLOSTRIDIUM HIST. 30 GRAMS TUBE TP SCH (12:02)
[2018-01-14] MEDS: LYTES/YERBA SANTA 240 ML BOTTLE MM SCH (12:02)
--- NOTE | 2018-01-14 13:51 | PN ---
Progress Note, Physician History of Present Illness: pulmonary more alert on vent support,ac mode,-resp distress - Current Medication List Current Medications: Active Medications Albuterol Sulfate (Ventolin 0.083% Nebulizer Soln -) 1 amp NEB RQID [facility] Last Admin: 01/14/18 11:40 Dose: 1 amp Amino Acids (Prosource No Carb Liquid Pkt) 30 ml GT BID@0800,1730 [facility] Last Admin: 01/14/18 08:45 Dose: 30 ml Ascorbic Acid (Vitamin C -) 500 mg GT DAILY [facility] Last Admin: 01/14/18 10:00 Dose: 500 mg Collagenase (Santyl -) 1 applic TP DAILY [facility] Last Admin: 01/14/18 12:02 Dose: 1 applic Ergocalciferol (Drisdol Oral Solution -) 50,000 units PO Fr@1000 [facility] Ferrous Sulfate (Feosol) 300 mg GT BID [facility] Last Admin: 01/14/18 10:00 Dose: 300 mg Gabapentin (Neurontin Oral Liquid -) 150 mg PO BID [facility] Last Admin: 01/14/18 10:01 Dose: 150 mg Heparin Sodium (Porcine) (Heparin -) 5,000 unit SQ TID [facility] Last Admin: 01/14/18 05:44 Dose: 5,000 unit Lactobacillus Acidophilus (Bacid -) 2 tab GT DAILY [facility] Last Admin: 01/14/18 10:00 Dose: 2 tab Levetiracetam (Keppra Oral Solution -) 1,500 mg GT BID [facility] Last Admin: 01/14/18 09:59 Dose: 1,500 mg Magnesium Oxide (Mag-Ox -) 400 mg GT BID [facility] Last Admin: 01/14/18 10:00 Dose: 400 mg Midodrine (Proamatine -) 5 mg GT TID-MID [facility] Last Admin: 01/14/18 10:00 Dose: 5 mg Oxycodone HCl (Roxicodone -) 5 mg PO Q6H PRN PRN Reason: PAIN LEVEL 4 - 6 Last Admin: 01/14/18 12:03 Dose: 5 mg Ranitidine HCl (Zantac Oral Solution -) 150 mg GT DAILY [facility] Last Admin: 01/14/18 10:00 Dose: 150 mg Saliva Substitute (Mouthkote Solution -) 1 applic MM DAILY [facility] Last Admin: 01/14/18 12:02 Dose: 1 applic Valproate Sodium (Depakene -) 750 mg GT BID [facility] Last Admin: 01/14/18 10:00 Dose: 750 mg Vancomycin HCl (Vancomycin Oral Solution) 250 mg PO Q6HPO [facility] Last Admin: 01/14/18 12:04 Dose: 250 mg - Objective Vital Signs: Vital Signs Temperature 97.9 F 01/14/18 09:00 Pulse Rate 109 H 01/14/18 09:00 Respiratory Rate 23 01/14/18 10:40 Blood Pressure 93/50 01/14/18 09:00 O2 Sat by Pulse Oximetry (%) 100 01/13/18 21:00 Constitutional: Yes: Calm, Thin Eyes: Yes: WNL HENT: Yes: WNL Neck: Yes: Supple (trach) Cardiovascular: Yes: Regular Rate and Rhythm, S1, S2 Respiratory: Yes: Rhonchi (scattered rashmi rhonchi) Gastrointestinal: Yes: Normal Bowel Sounds, Soft Extremities: Yes: Other (CONTRACTURES) Edema: Yes Labs: CBC, BMP 01/13/18 06:45 01/13/18 06:45 INR, PTT INR 1.26 (0.82-1.09) H 01/10/18 18:25 Assessment/Plan Problem List - Problems (1) Fever Code(s): R50.9 - FEVER, UNSPECIFIED (2) Acute and chronic respiratory failure Code(s): J96.20 - ACUTE AND CHR RESP FAILURE, UNSP W HYPOXIA OR HYPERCAPNIA (3) Anemia Code(s): D64.9 - ANEMIA, UNSPECIFIED (4) Chronic respiratory failure Code(s): J96.10 - CHRONIC RESPIRATORY FAILURE, UNSP W HYPOXIA OR HYPERCAPNIA (5) Complication of tracheostomy Code(s): J95.00 - UNSPECIFIED TRACHEOSTOMY COMPLICATION (6) Functional quadriplegia Code(s): R53.2 - FUNCTIONAL QUADRIPLEGIA (7) Pneumonia Code(s): J18.9 - PNEUMONIA, UNSPECIFIED ORGANISM (8) Pressure ulcer Code(s): L89.90 - PRESSURE ULCER OF UNSPECIFIED SITE, UNSPECIFIED STAGE (9) Severe flexion contractures of all joints Code(s): M24.50 - CONTRACTURE, UNSPECIFIED JOINT (10) C-DIF Assessment/Plan CONTINUE CURRENT VENT SETTINGS NOT AN OPTIMAL WEANING CANDIDATE ANTIBIOTICS D/COLEEN BY ID F/U CHEST X-RAYS MONITOR H+H DR KC
[2018-01-15] MEDS: VANCOMYCIN 250 MG/5 ML ORAL SOLUTION PO SCH ×4 (01:05→18:14)
[2018-01-15] MEDS: HEPARIN NA (PORCINE) 5,000 UNITS/ML 1ML VIAL SQ SCH ×3 (06:18→22:08)
[2018-01-15] MEDS: ALBUTEROL SO4 0.083% IH SOL 2.5 MG/3 ML VIAL.NEB. NEB SCH ×4 (08:36→20:22)
[2018-01-15] MEDS: AMINO ACIDS/PROTEIN HYDROLYS 30 ML LIQUID.PKT GT SCH ×2 (09:00→18:14)
[2018-01-15] MEDS: ASCORBIC ACID 500 MG TABLET (FP) GT SCH (09:28)
[2018-01-15] MEDS: MIDODRINE HCL 5 MG TABLET GT SCH ×3 (09:29→18:14)
[2018-01-15] MEDS: RANITIDINE HCL 150 MG/10 ML UNIT-DOSE GT SCH (09:29)
[2018-01-15] MEDS: VALPROATE SODIUM 250 MG/5 ML UNIT DOSE CUP GT SCH ×2 (09:29→22:07)
[2018-01-15] MEDS: FERROUS SO4 300 MG/5 ML ORAL SOLN UNIT DOSE CUPS GT SCH ×2 (09:29→22:08)
[2018-01-15] MEDS: LACTOBACILLUS ACIDOPHILUS 1 TABLET GT SCH (09:30)
[2018-01-15] MEDS: MAGNESIUM OXIDE 400 MG TABLET (FP) GT SCH ×2 (09:30→22:08)
[2018-01-15] MEDS: levETIRAcetam 500 MG/5 ML ORAL SOLUTION (UNIT-DOSE CUPS) GT SCH ×2 (09:30→22:08)
[2018-01-15] MEDS: LYTES/YERBA SANTA 240 ML BOTTLE MM SCH (10:41)
--- NOTE | 2018-01-15 10:43 | PN ---
Progress Note (short form) - Note Progress Note: Febrile early AM poorly responsive on vent Vital Signs - 24 hr 01/14/18 01/14/18 01/14/18 14:40 15:12 17:46 Temperature 99.0 F 99.8 F H Pulse Rate 109 H 102 H Respiratory 20 19 23 Rate Blood Pressure 95/53 94/51 O2 Sat by Pulse Oximetry (%) 01/14/18 01/14/18 01/14/18 18:50 21:00 21:31 Temperature 100.1 F H Pulse Rate 104 H Respiratory 25 H 23 20 Rate Blood Pressure 83/47 O2 Sat by Pulse 100 Oximetry (%) 01/15/18 01/15/18 01/15/18 00:23 01:00 03:45 Temperature 101.1 F H Pulse Rate 105 H Respiratory 17 22 25 H Rate Blood Pressure 99/57 O2 Sat by Pulse Oximetry (%) 01/15/18 01/15/18 01/15/18 05:00 06:23 08:35 Temperature 98.2 F Pulse Rate 101 H 100 H Respiratory 22 22 Rate Blood Pressure 94/61 O2 Sat by Pulse 95 Oximetry (%) 01/15/18 01/15/18 09:00 10:10 Temperature 97.6 F Pulse Rate 100 H Respiratory 22 22 Rate Blood Pressure 98/60 O2 Sat by Pulse Oximetry (%) Current Medications Generic Name Dose Route Start Last Admin Trade Name Freq PRN Reason Stop Dose Admin Albuterol Sulfate 1 amp 01/10/18 22:45 01/15/18 08:36 Ventolin 0.083% Nebulizer Soln - NEB 1 amp RQID [facility] Administration Amino Acids 30 ml 01/13/18 17:30 01/15/18 09:00 Prosource No Carb Liquid Pkt [facility] 30 ml BID@0800,1730 [facility] Administration Ascorbic Acid 500 mg 01/11/18 10:00 01/15/18 09:28 Vitamin C - GT 500 mg DAILY [facility] Administration Collagenase 1 applic 01/11/18 10:00 01/14/18 12:02 Santyl - TP 1 applic DAILY [facility] Administration Ergocalciferol 50,000 units 01/16/18 10:00 Drisdol Oral Solution - PO Fr@1000 [facility] Ferrous Sulfate 300 mg 01/11/18 10:00 01/15/18 09:29 Feosol GT 300 mg BID [facility] Administration Gabapentin 150 mg 01/11/18 10:00 01/14/18 21:07 Neurontin Oral Liquid - PO 150 mg BID [facility] Administration Heparin Sodium (Porcine) 5,000 unit 01/10/18 22:00 01/15/18 06:18 Heparin - SQ 5,000 unit TID [facility] Administration Lactobacillus Acidophilus 2 tab 01/11/18 10:00 01/15/18 09:30 Bacid - GT 2 tab DAILY [facility] Administration Levetiracetam 1,500 mg 01/10/18 22:45 01/15/18 09:30 Keppra Oral Solution - GT 1,500 mg BID [facility] Administration Magnesium Oxide 400 mg 01/11/18 10:00 01/15/18 09:30 Mag-Ox - GT 400 mg BID [facility] Administration Midodrine 5 mg 01/10/18 10:00 01/15/18 09:29 Proamatine - GT 5 mg TID-MID [facility] Administration Oxycodone HCl 5 mg 01/14/18 11:42 01/14/18 12:03 Roxicodone - PO 5 mg Q6H PRN Administration PAIN LEVEL 4 - 6 Ranitidine HCl 150 mg 01/11/18 10:00 01/15/18 09:29 Zantac Oral Solution - GT 150 mg DAILY [facility] Administration Saliva Substitute 1 applic 01/13/18 14:00 01/14/18 12:02 Mouthkote Solution - MM 1 applic DAILY [facility] Administration Valproate Sodium 750 mg 01/11/18 10:00 01/15/18 09:29 Depakene - GT 750 mg BID [facility] Administration Vancomycin HCl 250 mg 01/12/18 18:00 01/15/18 06:18 Vancomycin Oral Solution PO 250 mg Q6HPO [facility] Administration S1 S2 RRR Lungs decreased Multiple pressure ulcers no abd tenderness no edema A/P on GT Vanco only for Cdiff vent support Nebs continue with meds Ethic consult called- friend has been called but unable to reach her yesterday poor prognosis Problem List - Problems (1) Clostridium difficile diarrhea Code(s): A04.72 - ENTEROCOLITIS D/T CLOSTRIDIUM DIFFICILE, NOT SPCF RECUR (2) Functional quadriplegia Code(s): R53.2 - FUNCTIONAL QUADRIPLEGIA (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
[2018-01-15] MEDS: GABAPENTIN 250 MG/5 ML ORAL SOLUTION, 470 ML BOTTLE PO SCH ×2 (11:00→21:50)
--- NOTE | 2018-01-15 11:07 | PN ---
Progress Note (short form) - Note Progress Note: PULMONARY Vented, poorly responsive. Febrile overnight. Vented on volume assist control with 60% FiO2. Vital Signs Period Temp Pulse Resp BP Sys/Guzman Pulse Ox Last 24 Hr 97.6 F-101.1 F 100-109 17-25 83-99/47-61 95-100 Gen: vented, poorly responsive Heart: RRR Lung: scattered rhonchi Abd: soft, nontender Ext: + edema, contracted CBC, BMP 01/13/18 06:45 01/13/18 06:45 Active Medications Albuterol Sulfate (Ventolin 0.083% Nebulizer Soln -) 1 amp NEB RQID [facility] Last Admin: 01/15/18 08:36 Dose: 1 amp Amino Acids (Prosource No Carb Liquid Pkt) 30 ml GT BID@0800,1730 [facility] Last Admin: 01/15/18 09:00 Dose: 30 ml Ascorbic Acid (Vitamin C -) 500 mg GT DAILY [facility] Last Admin: 01/15/18 09:28 Dose: 500 mg Collagenase (Santyl -) 1 applic TP DAILY [facility] Last Admin: 01/14/18 12:02 Dose: 1 applic Ergocalciferol (Drisdol Oral Solution -) 50,000 units PO Fr@1000 [facility] Ferrous Sulfate (Feosol) 300 mg GT BID [facility] Last Admin: 01/15/18 09:29 Dose: 300 mg Gabapentin (Neurontin Oral Liquid -) 150 mg PO BID [facility] Last Admin: 01/14/18 21:07 Dose: 150 mg Heparin Sodium (Porcine) (Heparin -) 5,000 unit SQ TID [facility] Last Admin: 01/15/18 06:18 Dose: 5,000 unit Lactobacillus Acidophilus (Bacid -) 2 tab GT DAILY [facility] Last Admin: 01/15/18 09:30 Dose: 2 tab Levetiracetam (Keppra Oral Solution -) 1,500 mg GT BID [facility] Last Admin: 01/15/18 09:30 Dose: 1,500 mg Magnesium Oxide (Mag-Ox -) 400 mg GT BID [facility] Last Admin: 01/15/18 09:30 Dose: 400 mg Midodrine (Proamatine -) 5 mg GT TID-MID [facility] Last Admin: 01/15/18 09:29 Dose: 5 mg Oxycodone HCl (Roxicodone -) 5 mg PO Q6H PRN PRN Reason: PAIN LEVEL 4 - 6 Last Admin: 01/14/18 12:03 Dose: 5 mg Ranitidine HCl (Zantac Oral Solution -) 150 mg GT DAILY [facility] Last Admin: 01/15/18 09:29 Dose: 150 mg Saliva Substitute (Mouthkote Solution -) 1 applic MM DAILY [facility] Last Admin: 01/14/18 12:02 Dose: 1 applic Valproate Sodium (Depakene -) 750 mg GT BID [facility] Last Admin: 01/15/18 09:29 Dose: 750 mg Vancomycin HCl (Vancomycin Oral Solution) 250 mg PO Q6HPO [facility] Last Admin: 01/15/18 06:18 Dose: 250 mg A/P Chronic Respiratory Failure Pneumonia Sacral Decubitus Ulcer Infection +C diff Ag Sepsis Functional Quadriplegia Seizure Disorder Anemia - antibiotics per ID - wound care - taper fio2 to keep Spo2 >90% - continue volume assist control - not a candidate for weaning due to high oxygen requirements and poor mental status - enteral feeds - DVT/GI prophylaxis - agree with palliative care discussions
[2018-01-15] MEDS: COLLAGENASE CLOSTRIDIUM HIST. 30 GRAMS TUBE TP SCH (11:30)
[2018-01-15] MEDS ORDERED: PNEUMOC 13-VAL CONJ-DIP CRM/PF 0.5 ML DISP.SYRIN IM ONE ×2 (17:30→17:45)
[2018-01-16] MEDS: VANCOMYCIN 250 MG/5 ML ORAL SOLUTION PO SCH ×5 (00:20→23:29)
[2018-01-16] MEDS: HEPARIN NA (PORCINE) 5,000 UNITS/ML 1ML VIAL SQ SCH ×3 (05:51→22:38)
[2018-01-16] MEDS: ALBUTEROL SO4 0.083% IH SOL 2.5 MG/3 ML VIAL.NEB. NEB SCH ×4 (08:06→21:00)
[2018-01-16] MEDS ORDERED: ERGOCALCIFEROL 8,000 UNITS/ML DROPSBTL PO SCH (10:00)
[2018-01-16] MEDS ORDERED: PT OWN MED DRAWER 7, Y5N ONE ×5 (10:47→22:29)
[2018-01-16] MEDS: AMINO ACIDS/PROTEIN HYDROLYS 30 ML LIQUID.PKT GT SCH ×2 (10:57→17:30)
[2018-01-16] MEDS: ASCORBIC ACID 500 MG TABLET (FP) GT SCH (10:58)
[2018-01-16] MEDS: LACTOBACILLUS ACIDOPHILUS 1 TABLET GT SCH (10:58)
[2018-01-16] MEDS: RANITIDINE HCL 150 MG/10 ML UNIT-DOSE GT SCH (10:58)
[2018-01-16] MEDS: VALPROATE SODIUM 250 MG/5 ML UNIT DOSE CUP GT SCH ×2 (10:58→22:38)
[2018-01-16] MEDS: FERROUS SO4 300 MG/5 ML ORAL SOLN UNIT DOSE CUPS GT SCH ×2 (10:58→22:38)
[2018-01-16] MEDS: MAGNESIUM OXIDE 400 MG TABLET (FP) GT SCH ×2 (10:58→22:38)
[2018-01-16] MEDS: MIDODRINE HCL 5 MG TABLET GT SCH ×3 (10:59→17:30)
[2018-01-16] MEDS: levETIRAcetam 500 MG/5 ML ORAL SOLUTION (UNIT-DOSE CUPS) GT SCH ×2 (11:02→22:38)
[2018-01-16] MEDS: GABAPENTIN 250 MG/5 ML ORAL SOLUTION, 470 ML BOTTLE PO SCH ×2 (11:10→22:38)
[2018-01-16] MEDS: LYTES/YERBA SANTA 240 ML BOTTLE MM SCH (11:23)
--- NOTE | 2018-01-16 11:51 | PN ---
Progress Note (short form) - Note Progress Note: patient seen and examined. Overall condition same Awake Appears comfortable Afebrile Vital Signs Temp 98.2 F 01/16/18 10:55 Pulse 86 01/16/18 10:55 Resp 23 01/16/18 10:55 BP 93/55 01/16/18 10:55 Pulse Ox 94 L 01/15/18 21:00 Intake & Output 01/15/18 01/15/18 01/16/18 11:59 23:59 11:59 Output Total 500 1500 Balance -500 -1500 Output: Urine 500 1500 Muhammad 500 1500 Other: Voiding Method Indwelling Catheter Indwelling Catheter Bowel Movement Yes: Soft Yes # Bowel Movements 1 1 Active Medications Albuterol Sulfate (Ventolin 0.083% Nebulizer Soln -) 1 amp NEB RQID [facility] Last Admin: 01/16/18 08:06 Dose: 1 amp Amino Acids (Prosource No Carb Liquid Pkt) 30 ml GT BID@0800,1730 [facility] Last Admin: 01/16/18 10:57 Dose: 30 ml Ascorbic Acid (Vitamin C -) 500 mg GT DAILY [facility] Last Admin: 01/16/18 10:58 Dose: 500 mg Collagenase (Santyl -) 1 applic TP DAILY [facility] Last Admin: 01/15/18 11:30 Dose: 1 applic Ergocalciferol (Drisdol Oral Solution -) 50,000 units PO Fr@1000 [facility] Last Admin: 01/16/18 11:03 Dose: 50,000 units Ferrous Sulfate (Feosol) 300 mg GT BID [facility] Last Admin: 01/16/18 10:58 Dose: 300 mg Gabapentin (Neurontin Oral Liquid -) 150 mg PO BID [facility] Last Admin: 01/16/18 11:10 Dose: 150 mg Heparin Sodium (Porcine) (Heparin -) 5,000 unit SQ TID [facility] Last Admin: 01/16/18 05:51 Dose: 5,000 unit Lactobacillus Acidophilus (Bacid -) 2 tab GT DAILY [facility] Last Admin: 01/16/18 10:58 Dose: 2 tab Levetiracetam (Keppra Oral Solution -) 1,500 mg GT BID [facility] Last Admin: 01/16/18 11:02 Dose: 1,500 mg Magnesium Oxide (Mag-Ox -) 400 mg GT BID [facility] Last Admin: 01/16/18 10:58 Dose: 400 mg Midodrine (Proamatine -) 5 mg GT TID-MID [facility] Last Admin: 01/16/18 10:59 Dose: 5 mg Oxycodone HCl (Roxicodone -) 5 mg PO Q6H PRN PRN Reason: PAIN LEVEL 4 - 6 Last Admin: 01/14/18 12:03 Dose: 5 mg Pneumococcal 13-Valent Conj Vacc (Prevnar 13 Syringe -) 0.5 ml IM .ONCE ONE Stop: 01/15/18 17:46 Ranitidine HCl (Zantac Oral Solution -) 150 mg GT DAILY [facility] Last Admin: 01/16/18 10:58 Dose: 150 mg Saliva Substitute (Mouthkote Solution -) 1 applic MM DAILY [facility] Last Admin: 01/16/18 11:23 Dose: 1 applic Valproate Sodium (Depakene -) 750 mg GT BID [facility] Last Admin: 01/16/18 10:58 Dose: 750 mg Vancomycin HCl (Vancomycin Oral Solution) 250 mg PO Q6HPO [facility] Last Admin: 01/16/18 11:11 Dose: 250 mg CBC, BMP 01/13/18 06:45 01/13/18 06:45 Microbiology 01/10/18 18:33 Blood Culture - Final Blood - Peripheral Venous NO GROWTH AFTER 5 DAYS INCUBATION 01/10/18 09:40 Gram Stain - Final Sputum - Endotrachea Suction/Ventilator Sputum Culture - Final Pseudomonas Aeruginosa Pseudomonas Aeruginosa#2 Pseudomonas Aeruginosa#3 Physical Constitutional: Yes: Other (awake/ no distress) Eyes: Yes: Conjunctiva Clear HENT: Yes: Other ( lip/ facial swelling) Neck: Yes: Other (s/p trach-- vent) Cardiovascular: Yes: Regular Rate and Rhythm Respiratory: Yes: Diminished Gastrointestinal: Yes: Soft/ non tender Edema: No Wound/Incision: Yes: Other (multple decubitus--- neck/ back/ sacral) Neurological: No: Other assessment and plan continue antibiotics--by mouth Vanco Contact precautions Continue other medications overall condition poor continue present care patient's friend unable to attend a meeting Discharge planning Will follow Problem List - Problems (1) Fever Code(s): R50.9 - FEVER, UNSPECIFIED (2) Sepsis Code(s): A41.9 - SEPSIS, UNSPECIFIED ORGANISM Qualifiers: Sepsis type: sepsis due to unspecified organism Qualified Code(s): A41.9 - Sepsis, unspecified organism (3) Chronic respiratory failure Code(s): J96.10 - CHRONIC RESPIRATORY FAILURE, UNSP W HYPOXIA OR HYPERCAPNIA (4) Functional quadriplegia Code(s): R53.2 - FUNCTIONAL QUADRIPLEGIA (5) Pressure ulcer Code(s): L89.90 - PRESSURE ULCER OF UNSPECIFIED SITE, UNSPECIFIED STAGE (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
--- NOTE | 2018-01-16 12:12 | PN ---
Progress Note, Physician History of Present Illness: PULMONARY MORE AWAKE,ON VENT SUPPORT AC MODE ,-RESP DISTRESS - Current Medication List Current Medications: Active Medications Albuterol Sulfate (Ventolin 0.083% Nebulizer Soln -) 1 amp NEB RQID [facility] Last Admin: 01/16/18 12:05 Dose: 1 amp Amino Acids (Prosource No Carb Liquid Pkt) 30 ml GT BID@0800,1730 [facility] Last Admin: 01/16/18 10:57 Dose: 30 ml Ascorbic Acid (Vitamin C -) 500 mg GT DAILY [facility] Last Admin: 01/16/18 10:58 Dose: 500 mg Collagenase (Santyl -) 1 applic TP DAILY [facility] Last Admin: 01/15/18 11:30 Dose: 1 applic Ergocalciferol (Drisdol Oral Solution -) 50,000 units PO Fr@1000 [facility] Last Admin: 01/16/18 11:03 Dose: 50,000 units Ferrous Sulfate (Feosol) 300 mg GT BID [facility] Last Admin: 01/16/18 10:58 Dose: 300 mg Gabapentin (Neurontin Oral Liquid -) 150 mg PO BID [facility] Last Admin: 01/16/18 11:10 Dose: 150 mg Heparin Sodium (Porcine) (Heparin -) 5,000 unit SQ TID [facility] Last Admin: 01/16/18 05:51 Dose: 5,000 unit Lactobacillus Acidophilus (Bacid -) 2 tab GT DAILY [facility] Last Admin: 01/16/18 10:58 Dose: 2 tab Levetiracetam (Keppra Oral Solution -) 1,500 mg GT BID [facility] Last Admin: 01/16/18 11:02 Dose: 1,500 mg Magnesium Oxide (Mag-Ox -) 400 mg GT BID [facility] Last Admin: 01/16/18 10:58 Dose: 400 mg Midodrine (Proamatine -) 5 mg GT TID-MID [facility] Last Admin: 01/16/18 10:59 Dose: 5 mg Oxycodone HCl (Roxicodone -) 5 mg PO Q6H PRN PRN Reason: PAIN LEVEL 4 - 6 Last Admin: 01/14/18 12:03 Dose: 5 mg Pneumococcal 13-Valent Conj Vacc (Prevnar 13 Syringe -) 0.5 ml IM .ONCE ONE Stop: 01/15/18 17:46 Ranitidine HCl (Zantac Oral Solution -) 150 mg GT DAILY [facility] Last Admin: 01/16/18 10:58 Dose: 150 mg Saliva Substitute (Mouthkote Solution -) 1 applic MM DAILY [facility] Last Admin: 01/16/18 11:23 Dose: 1 applic Valproate Sodium (Depakene -) 750 mg GT BID [facility] Last Admin: 01/16/18 10:58 Dose: 750 mg Vancomycin HCl (Vancomycin Oral Solution) 250 mg PO Q6HPO [facility] Last Admin: 01/16/18 11:11 Dose: 250 mg - Objective Vital Signs: Vital Signs Temperature 98.2 F 01/16/18 10:55 Pulse Rate 68 01/16/18 12:02 Respiratory Rate 17 01/16/18 11:01 Blood Pressure 93/55 01/16/18 10:55 O2 Sat by Pulse Oximetry (%) 95 01/16/18 12:02 Constitutional: Yes: Calm, Thin Eyes: Yes: WNL HENT: Yes: WNL Neck: Yes: Supple (TRACH) Cardiovascular: Yes: Regular Rate and Rhythm, S1, S2 Respiratory: Yes: Rhonchi (FEW SCATTERED RHONCHI) Gastrointestinal: Yes: Normal Bowel Sounds, Soft Extremities: Yes: WNL Edema: Yes Labs: CBC, BMP Assessment/Plan Problem List - Problems (1) Fever Code(s): R50.9 - FEVER, UNSPECIFIED (2) Acute and chronic respiratory failure Code(s): J96.20 - ACUTE AND CHR RESP FAILURE, UNSP W HYPOXIA OR HYPERCAPNIA (3) Anemia Code(s): D64.9 - ANEMIA, UNSPECIFIED (4) Chronic respiratory failure Code(s): J96.10 - CHRONIC RESPIRATORY FAILURE, UNSP W HYPOXIA OR HYPERCAPNIA (5) Complication of tracheostomy Code(s): J95.00 - UNSPECIFIED TRACHEOSTOMY COMPLICATION (6) Functional quadriplegia Code(s): R53.2 - FUNCTIONAL QUADRIPLEGIA (7) Pneumonia Code(s): J18.9 - PNEUMONIA, UNSPECIFIED ORGANISM (8) Pressure ulcer Code(s): L89.90 - PRESSURE ULCER OF UNSPECIFIED SITE, UNSPECIFIED STAGE (9) Severe flexion contractures of all joints Code(s): M24.50 - CONTRACTURE, UNSPECIFIED JOINT (10) C-DIF Assessment/Plan CONTINUE CURRENT VENT SETTINGS NOT AN OPTIMAL WEANING CANDIDATE ANTIBIOTICS D/COLEEN BY ID F/U CHEST X-RAYS MONITOR H+H DR KC
--- NOTE | 2018-01-16 13:21 | PN ---
Progress Note (short form) - Note Progress Note: opens eyes trach to vent facial swellling unchanged Vital Signs Period Temp Pulse Resp BP Sys/Guzman Pulse Ox Last 24 Hr 98.1 F-100.0 F 68-104 17-28 91-111/50-67 94-95 cor-rrr lungs decreased bs at bases abd +GT ext contracted multiple decubs CBC, BMP 01/13/18 06:45 01/13/18 06:45 Microbiology 01/10/18 18:33 Blood - Peripheral Venous Blood Culture - Final NO GROWTH AFTER 5 DAYS INCUBATION 01/10/18 09:40 Sputum - Endotrachea Suction/Ventilator Gram Stain - Final 01/10/18 09:40 Sputum - Endotrachea Suction/Ventilator Sputum Culture - Final Pseudomonas Aeruginosa Pseudomonas Aeruginosa#2 Pseudomonas Aeruginosa#3 01/10/18 18:33 Urine - Urine - Catheterized Urine Culture - Final Enterobacter Aerogenes 01/12/18 12:10 Stool Clostridium difficile Antigen (GISELE) - Final 01/12/18 12:10 Stool Clostridium difficile Toxin Assay - Final f imp/reccd cdiff colitis continue po vancomycin for cdiff wbc trending down resp failure- chronic palliative care being addressed please call back if needed Problem List - Problems (1) Fever Code(s): R50.9 - FEVER, UNSPECIFIED (2) Pneumonia Code(s): J18.9 - PNEUMONIA, UNSPECIFIED ORGANISM (3) Pressure ulcer Code(s): L89.90 - PRESSURE ULCER OF UNSPECIFIED SITE, UNSPECIFIED STAGE (4) Ventilator dependent Code(s): Z99.11 - DEPENDENCE ON RESPIRATOR [VENTILATOR] STATUS (5) Functional quadriplegia Code(s): R53.2 - FUNCTIONAL QUADRIPLEGIA
[2018-01-16] MEDS: COLLAGENASE CLOSTRIDIUM HIST. 30 GRAMS TUBE TP SCH (17:30)
[2018-01-17] MEDS: HEPARIN NA (PORCINE) 5,000 UNITS/ML 1ML VIAL SQ SCH ×2 (06:05→15:11)
[2018-01-17] MEDS: VANCOMYCIN 250 MG/5 ML ORAL SOLUTION PO SCH ×4 (06:05→23:54)
[2018-01-17] MEDS: ALBUTEROL SO4 0.083% IH SOL 2.5 MG/3 ML VIAL.NEB. NEB SCH ×4 (08:15→20:31)
[2018-01-17] MEDS: AMINO ACIDS/PROTEIN HYDROLYS 30 ML LIQUID.PKT GT SCH ×2 (08:30→17:17)
[2018-01-17] MEDS ORDERED: PT OWN MED DRAWER 7, Y5N ONE ×3 (10:49→21:53)
[2018-01-17] MEDS: LACTOBACILLUS ACIDOPHILUS 1 TABLET GT SCH (10:55)
[2018-01-17] MEDS: FERROUS SO4 300 MG/5 ML ORAL SOLN UNIT DOSE CUPS GT SCH ×2 (10:55→22:04)
[2018-01-17] MEDS: RANITIDINE HCL 150 MG/10 ML UNIT-DOSE GT SCH (10:55)
[2018-01-17] MEDS: VALPROATE SODIUM 250 MG/5 ML UNIT DOSE CUP GT SCH ×2 (10:55→22:04)
[2018-01-17] MEDS: MIDODRINE HCL 5 MG TABLET GT SCH ×3 (10:55→17:17)
[2018-01-17] MEDS: levETIRAcetam 500 MG/5 ML ORAL SOLUTION (UNIT-DOSE CUPS) GT SCH ×2 (10:56→22:04)
[2018-01-17] MEDS: LYTES/YERBA SANTA 240 ML BOTTLE MM SCH (10:56)
[2018-01-17] MEDS: ASCORBIC ACID 500 MG TABLET (FP) GT SCH (10:56)
[2018-01-17] MEDS: MAGNESIUM OXIDE 400 MG TABLET (FP) GT SCH ×2 (10:56→22:04)
[2018-01-17] MEDS: GABAPENTIN 250 MG/5 ML ORAL SOLUTION, 470 ML BOTTLE PO SCH ×2 (10:59→22:06)
[2018-01-17] MEDS: COLLAGENASE CLOSTRIDIUM HIST. 30 GRAMS TUBE TP SCH (11:00)
--- NOTE | 2018-01-17 11:30 | PN ---
Progress Note (short form) - Note Progress Note: poorly responsive Vital Signs - 24 hr 01/16/18 01/16/18 01/16/18 12:02 12:53 14:03 Temperature 98.7 F Pulse Rate 68 97 H 90 Respiratory 28 H 16 Rate Blood Pressure 102/67 111/65 O2 Sat by Pulse 95 Oximetry (%) 01/16/18 01/16/18 01/16/18 14:05 14:45 15:55 Temperature 99.7 F H Pulse Rate 90 Respiratory 18 24 Rate Blood Pressure 111/65 O2 Sat by Pulse Oximetry (%) 01/16/18 01/16/18 01/16/18 17:25 17:42 20:33 Temperature 98.1 F 98.0 F Pulse Rate 92 H 87 Respiratory 26 H 24 22 Rate Blood Pressure 115/70 104/59 O2 Sat by Pulse Oximetry (%) 01/16/18 01/16/18 01/17/18 21:00 22:05 01:00 Temperature 98.4 F Pulse Rate 93 H Respiratory 23 23 23 Rate Blood Pressure 99/60 O2 Sat by Pulse 100 Oximetry (%) 01/17/18 01/17/18 01/17/18 02:35 05:00 06:59 Temperature 98 F Pulse Rate 102 H Respiratory 24 20 24 Rate Blood Pressure 100/60 O2 Sat by Pulse Oximetry (%) Current Medications Generic Name Dose Route Start Last Admin Trade Name Freq PRN Reason Stop Dose Admin Albuterol Sulfate 1 amp 01/10/18 22:45 01/17/18 08:15 Ventolin 0.083% Nebulizer Soln - NEB 1 amp RQID [facility] Administration Amino Acids 30 ml 01/13/18 17:30 01/17/18 08:30 Prosource No Carb Liquid Pkt GT 30 ml BID@0800,1730 [facility] Administration Ascorbic Acid 500 mg 01/11/18 10:00 01/17/18 10:56 Vitamin C - GT 500 mg DAILY [facility] Administration Collagenase 1 applic 01/11/18 10:00 01/17/18 11:00 Santyl - TP 1 applic DAILY [facility] Administration Ergocalciferol 50,000 units 01/16/18 10:00 01/16/18 11:03 Drisdol Oral Solution - PO 50,000 units Fr@1000 [facility] Administration Ferrous Sulfate 300 mg 01/11/18 10:00 01/17/18 10:55 Feosol GT 300 mg BID [facility] Administration Gabapentin 150 mg 01/11/18 10:00 01/17/18 10:59 Neurontin Oral Liquid - PO 150 mg BID [facility] Administration Heparin Sodium (Porcine) 5,000 unit 01/10/18 22:00 01/17/18 06:05 Heparin - SQ 5,000 unit TID [facility] Administration Lactobacillus Acidophilus 2 tab 01/11/18 10:00 01/17/18 10:55 Bacid - GT 2 tab DAILY [facility] Administration Levetiracetam 1,500 mg 01/10/18 22:45 01/17/18 10:56 Keppra Oral Solution - GT 1,500 mg BID [facility] Administration Magnesium Oxide 400 mg 01/11/18 10:00 01/17/18 10:56 Mag-Ox - GT 400 mg BID [facility] Administration Midodrine 5 mg 01/10/18 10:00 01/17/18 10:55 Proamatine - GT 5 mg TID-MID [facility] Administration Oxycodone HCl 5 mg 01/14/18 11:42 01/14/18 12:03 Roxicodone - PO 5 mg Q6H PRN Administration PAIN LEVEL 4 - 6 Pneumococcal 13-Valent Conj Vacc 0.5 ml 01/15/18 17:45 Prevnar 13 Syringe - IM 01/15/18 17:46 .ONCE ONE Ranitidine HCl 150 mg 01/11/18 10:00 01/17/18 10:55 Zantac Oral Solution - GT 150 mg DAILY [facility] Administration Saliva Substitute 1 applic 01/13/18 14:00 01/17/18 10:56 Mouthkote Solution - MM 1 applic DAILY [facility] Administration Valproate Sodium 750 mg 01/11/18 10:00 01/17/18 10:55 Depakene - GT 750 mg BID [facility] Administration Vancomycin HCl 250 mg 01/12/18 18:00 01/17/18 06:05 Vancomycin Oral Solution PO 250 mg Q6HPO [facility] Administration S1 S2 RRR Lungs- decreased edema face no abd tenderness no edema PLAN supportive care treat cdiff palliative care Problem List - Problems (1) Clostridium difficile diarrhea Code(s): A04.72 - ENTEROCOLITIS D/T CLOSTRIDIUM DIFFICILE, NOT SPCF RECUR (2) Functional quadriplegia Code(s): R53.2 - FUNCTIONAL QUADRIPLEGIA (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
--- NOTE | 2018-01-17 13:34 | PN ---
Progress Note (short form) - Note Progress Note: PULMONARY Vented, poorly responsive. No fevers recorded. Vented on volume assist control with 60% FiO2. Vital Signs Period Temp Pulse Resp BP Sys/Guzman Pulse Ox Last 24 Hr 98 F-99.7 F 87-102 16-26 99-115/59-70 100 Gen: vented, poorly responsive Heart: RRR Lung: scattered rhonchi Abd: soft, nontender Ext: + edema, contracted CBC, BMP 01/13/18 06:45 01/13/18 06:45 Active Medications Albuterol Sulfate (Ventolin 0.083% Nebulizer Soln -) 1 amp NEB RQID [facility] Last Admin: 01/17/18 11:50 Dose: 1 amp Amino Acids (Prosource No Carb Liquid Pkt) 30 ml GT BID@0800,1730 [facility] Last Admin: 01/17/18 08:30 Dose: 30 ml Ascorbic Acid (Vitamin C -) 500 mg GT DAILY [facility] Last Admin: 01/17/18 10:56 Dose: 500 mg Collagenase (Santyl -) 1 applic TP DAILY [facility] Last Admin: 01/17/18 11:00 Dose: 1 applic Ergocalciferol (Drisdol Oral Solution -) 50,000 units PO Fr@1000 [facility] Last Admin: 01/16/18 11:03 Dose: 50,000 units Ferrous Sulfate (Feosol) 300 mg GT BID [facility] Last Admin: 01/17/18 10:55 Dose: 300 mg Gabapentin (Neurontin Oral Liquid -) 150 mg PO BID [facility] Last Admin: 01/17/18 10:59 Dose: 150 mg Heparin Sodium (Porcine) (Heparin -) 5,000 unit SQ TID [facility] Last Admin: 01/17/18 06:05 Dose: 5,000 unit Lactobacillus Acidophilus (Bacid -) 2 tab GT DAILY [facility] Last Admin: 01/17/18 10:55 Dose: 2 tab Levetiracetam (Keppra Oral Solution -) 1,500 mg GT BID [facility] Last Admin: 01/17/18 10:56 Dose: 1,500 mg Magnesium Oxide (Mag-Ox -) 400 mg GT BID [facility] Last Admin: 01/17/18 10:56 Dose: 400 mg Midodrine (Proamatine -) 5 mg GT TID-MID [facility] Last Admin: 01/17/18 10:55 Dose: 5 mg Pneumococcal 13-Valent Conj Vacc (Prevnar 13 Syringe -) 0.5 ml IM .ONCE ONE Stop: 01/15/18 17:46 Ranitidine HCl (Zantac Oral Solution -) 150 mg GT DAILY [facility] Last Admin: 01/17/18 10:55 Dose: 150 mg Saliva Substitute (Mouthkote Solution -) 1 applic MM DAILY [facility] Last Admin: 01/17/18 10:56 Dose: 1 applic Valproate Sodium (Depakene -) 750 mg GT BID [facility] Last Admin: 01/17/18 10:55 Dose: 750 mg Vancomycin HCl (Vancomycin Oral Solution) 250 mg PO Q6HPO [facility] Last Admin: 01/17/18 06:05 Dose: 250 mg A/P Chronic Respiratory Failure Pneumonia Sacral Decubitus Ulcer Infection +C diff Ag Sepsis Functional Quadriplegia Seizure Disorder Anemia - antibiotics per ID - wound care - taper fio2 to keep Spo2 >90% - continue volume assist control - not a candidate for weaning due to high oxygen requirements and poor mental status - enteral feeds - DVT/GI prophylaxis - continue palliative care discussions
[2018-01-18] MEDS: VANCOMYCIN 250 MG/5 ML ORAL SOLUTION PO SCH ×4 (05:33→23:27)
[2018-01-18] MEDS: ALBUTEROL SO4 0.083% IH SOL 2.5 MG/3 ML VIAL.NEB. NEB SCH ×4 (08:10→19:30)
[2018-01-18] MEDS: AMINO ACIDS/PROTEIN HYDROLYS 30 ML LIQUID.PKT GT SCH ×2 (08:30→17:14)
[2018-01-18 09:34] LABS: BASO % 0.4 % (0-2.0); EOS % 3.1 % (0-4.5); HEMOGLOBIN 7.4 GM/dL (11.7-16.9); LYMPH % 20.5 % (8-40); MCH 30.8 pg (25.7-33.7); MCHC 32.1 g/dl (32.0-35.9); MEAN CELL VOLUME 96.1 fl (80-96); MEAN PLT VOLUME 12.5 fl (7.5-11.1); MONO % 9.8 % (3.8-10.2); NEUT % 66.2 % (42.8-82.8); PLATELET COUNT 398 K/MM3 (134-434); RBC 2.39 M/mm3 (4.00-5.60); RDW 18.8 % (11.9-15.9); WHITE BLOOD COUNT 16.5 K/mm3 (4.0-10.0)
--- NOTE | 2018-01-18 09:59 | PN ---
Progress Note (short form) - Note Progress Note: poorly responsive now running a temp Vital Signs - 24 hr Vital Signs - 24 hr 01/17/18 01/18/18 01/18/18 23:06 02:23 02:34 Temperature 101.3 F H Pulse Rate 105 H Respiratory 20 20 28 H Rate Blood Pressure 91/58 01/18/18 01/18/18 01/18/18 05:18 05:30 09:00 Temperature 98.7 F Pulse Rate 96 H Respiratory 16 26 H 24 Rate Blood Pressure 95/60 01/18/18 01/18/18 01/18/18 10:00 14:20 15:06 Temperature 98.2 F Pulse Rate 91 H Respiratory 24 22 24 Rate Blood Pressure 105/78 01/18/18 01/18/18 01/18/18 18:01 18:53 21:12 Temperature 99.4 F Pulse Rate 103 H Respiratory 24 30 H 26 H Rate Blood Pressure 97/61 Current Medications Generic Name Dose Route Start Last Admin Trade Name Freq PRN Reason Stop Dose Admin Albuterol Sulfate 1 amp 01/10/18 22:45 01/17/18 08:15 Ventolin 0.083% Nebulizer Soln - NEB 1 amp RQID [facility] Administration Amino Acids 30 ml 01/13/18 17:30 01/17/18 08:30 Prosource No Carb Liquid Pkt GT 30 ml BID@0800,1730 [facility] Administration Ascorbic Acid 500 mg 01/11/18 10:00 01/17/18 10:56 Vitamin C - GT 500 mg DAILY [facility] Administration Collagenase 1 applic 01/11/18 10:00 01/17/18 11:00 Santyl - TP 1 applic DAILY [facility] Administration Ergocalciferol 50,000 units 01/16/18 10:00 01/16/18 11:03 Drisdol Oral Solution - PO 50,000 units Fr@1000 [facility] Administration Ferrous Sulfate 300 mg 01/11/18 10:00 01/17/18 10:55 Feosol GT 300 mg BID [facility] Administration Gabapentin 150 mg 01/11/18 10:00 01/17/18 10:59 Neurontin Oral Liquid - PO 150 mg BID [facility] Administration Heparin Sodium (Porcine) 5,000 unit 01/10/18 22:00 01/17/18 06:05 Heparin - SQ 5,000 unit TID [facility] Administration Lactobacillus Acidophilus 2 tab 01/11/18 10:00 01/17/18 10:55 Bacid - GT 2 tab DAILY [facility] Administration Levetiracetam 1,500 mg 01/10/18 22:45 01/17/18 10:56 Keppra Oral Solution - GT 1,500 mg BID [facility] Administration Magnesium Oxide 400 mg 01/11/18 10:00 01/17/18 10:56 Mag-Ox - GT 400 mg BID [facility] Administration Midodrine 5 mg 01/10/18 10:00 01/17/18 10:55 Proamatine - GT 5 mg TID-MID [facility] Administration Oxycodone HCl 5 mg 01/14/18 11:42 01/14/18 12:03 Roxicodone - PO 5 mg Q6H PRN Administration PAIN LEVEL 4 - 6 Pneumococcal 13-Valent Conj Vacc 0.5 ml 01/15/18 17:45 Prevnar 13 Syringe - IM 01/15/18 17:46 .ONCE ONE Ranitidine HCl 150 mg 01/11/18 10:00 01/17/18 10:55 Zantac Oral Solution - GT 150 mg DAILY [facility] Administration Saliva Substitute 1 applic 01/13/18 14:00 01/17/18 10:56 Mouthkote Solution - MM 1 applic DAILY [facility] Administration Valproate Sodium 750 mg 01/11/18 10:00 01/17/18 10:55 Depakene - GT 750 mg BID [facility] Administration Vancomycin HCl 250 mg 01/12/18 18:00 01/17/18 06:05 Vancomycin Oral Solution PO 250 mg Q6HPO [facility] Administration S1 S2 RRR Lungs- decreased edema face no abd tenderness no edema PLAN supportive care treat cdiff palliative care unable to reach HCP -- will need to make a decision about pt 's care Problem List - Problems (1) Clostridium difficile diarrhea Code(s): A04.72 - ENTEROCOLITIS D/T CLOSTRIDIUM DIFFICILE, NOT SPCF RECUR (2) Functional quadriplegia Code(s): R53.2 - FUNCTIONAL QUADRIPLEGIA (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
[2018-01-18] MEDS ORDERED: PT OWN MED DRAWER 7, Y5N ONE ×2 (11:16→22:59)
[2018-01-18] MEDS: FERROUS SO4 300 MG/5 ML ORAL SOLN UNIT DOSE CUPS GT SCH ×2 (11:19→23:01)
[2018-01-18] MEDS: VALPROATE SODIUM 250 MG/5 ML UNIT DOSE CUP GT SCH ×2 (11:19→23:01)
[2018-01-18] MEDS: RANITIDINE HCL 150 MG/10 ML UNIT-DOSE GT SCH (11:20)
[2018-01-18] MEDS: LACTOBACILLUS ACIDOPHILUS 1 TABLET GT SCH (11:20)
[2018-01-18] MEDS: MIDODRINE HCL 5 MG TABLET GT SCH ×3 (11:21→17:13)
[2018-01-18] MEDS: MAGNESIUM OXIDE 400 MG TABLET (FP) GT SCH ×2 (11:21→23:02)
[2018-01-18] MEDS: LYTES/YERBA SANTA 240 ML BOTTLE MM SCH (11:21)
[2018-01-18] MEDS: ASCORBIC ACID 500 MG TABLET (FP) GT SCH (11:21)
[2018-01-18] MEDS: levETIRAcetam 500 MG/5 ML ORAL SOLUTION (UNIT-DOSE CUPS) GT SCH ×2 (11:22→23:02)
[2018-01-18] MEDS: GABAPENTIN 250 MG/5 ML ORAL SOLUTION, 470 ML BOTTLE PO SCH ×2 (11:25→23:01)
[2018-01-18] MEDS: COLLAGENASE CLOSTRIDIUM HIST. 30 GRAMS TUBE TP SCH (11:25)
--- NOTE | 2018-01-18 12:00 | PN ---
Progress Note (short form) - Note Progress Note: PULMONARY Vented, poorly responsive. Febrile overnight. Vented on volume assist control with 60% FiO2. Vital Signs Period Temp Pulse Resp BP Sys/Guzman Pulse Ox Last 24 Hr 98.1 F-101.3 F 74-105 16-30 90-130/46-60 96-96 Gen: vented, poorly responsive Heart: RRR Lung: scattered rhonchi Abd: soft, nontender Ext: + edema, contracted CBC, BMP 01/18/18 08:22 01/13/18 06:45 Active Medications Acetaminophen (Tylenol Oral Solution -) 650 mg GT Q6H PRN PRN Reason: PAIN OR FEVER Albuterol Sulfate (Ventolin 0.083% Nebulizer Soln -) 1 amp NEB RQID [facility] Last Admin: 01/18/18 08:10 Dose: 1 amp Amino Acids (Prosource No Carb Liquid Pkt) 30 ml GT BID@0800,1730 [facility] Last Admin: 01/18/18 08:30 Dose: 30 ml Ascorbic Acid (Vitamin C -) 500 mg GT DAILY [facility] Last Admin: 01/18/18 11:21 Dose: 500 mg Collagenase (Santyl -) 1 applic TP DAILY [facility] Last Admin: 01/18/18 11:25 Dose: 1 applic Ergocalciferol (Drisdol Oral Solution -) 50,000 units PO Fr@1000 [facility] Last Admin: 01/16/18 11:03 Dose: 50,000 units Ferrous Sulfate (Feosol) 300 mg GT BID [facility] Last Admin: 01/18/18 11:19 Dose: 300 mg Gabapentin (Neurontin Oral Liquid -) 150 mg PO BID [facility] Last Admin: 01/18/18 11:25 Dose: 150 mg Lactobacillus Acidophilus (Bacid -) 2 tab GT DAILY [facility] Last Admin: 01/18/18 11:20 Dose: 2 tab Levetiracetam (Keppra Oral Solution -) 1,500 mg GT BID [facility] Last Admin: 01/18/18 11:22 Dose: 1,500 mg Magnesium Oxide (Mag-Ox -) 400 mg GT BID [facility] Last Admin: 01/18/18 11:21 Dose: 400 mg Midodrine (Proamatine -) 5 mg GT TID-MID [facility] Last Admin: 01/18/18 11:21 Dose: 5 mg Pneumococcal 13-Valent Conj Vacc (Prevnar 13 Syringe -) 0.5 ml IM .ONCE ONE Stop: 01/15/18 17:46 Ranitidine HCl (Zantac Oral Solution -) 150 mg GT DAILY [facility] Last Admin: 01/18/18 11:20 Dose: 150 mg Saliva Substitute (Mouthkote Solution -) 1 applic MM DAILY [facility] Last Admin: 01/18/18 11:21 Dose: 1 applic Valproate Sodium (Depakene -) 750 mg GT BID [facility] Last Admin: 01/18/18 11:19 Dose: 750 mg Vancomycin HCl (Vancomycin Oral Solution) 250 mg PO Q6HPO [facility] Last Admin: 01/18/18 11:20 Dose: 250 mg A/P Chronic Respiratory Failure Pneumonia Sacral Decubitus Ulcer Infection +C diff Ag Sepsis Functional Quadriplegia Seizure Disorder Anemia - antibiotics per ID - wound care - taper fio2 to keep Spo2 >90% - continue volume assist control - not a candidate for weaning due to high oxygen requirements and poor mental status - enteral feeds - DVT/GI prophylaxis - continue palliative care discussions
[2018-01-18] MEDS: HEPARIN NA (PORCINE) 5,000 UNITS/ML 1ML VIAL SQ SCH (23:02)
[2018-01-18] MEDS: ACETAMINOPHEN 650 MG/20.3 ML ORAL SOLUTION (CUPS) GT PRN (23:16)
[2018-01-19] MEDS: HEPARIN NA (PORCINE) 5,000 UNITS/ML 1ML VIAL SQ SCH ×3 (06:29→23:14)
[2018-01-19] MEDS: VANCOMYCIN 250 MG/5 ML ORAL SOLUTION PO SCH ×2 (06:29→12:36)
[2018-01-19] MEDS: ALBUTEROL SO4 0.083% IH SOL 2.5 MG/3 ML VIAL.NEB. NEB SCH ×4 (08:19→21:00)
[2018-01-19] MEDS: AMINO ACIDS/PROTEIN HYDROLYS 30 ML LIQUID.PKT GT SCH ×2 (08:50→18:26)
[2018-01-19] MEDS ORDERED: PT OWN MED DRAWER 7, Y5N ONE ×2 (09:27→23:32)
[2018-01-19] MEDS: levETIRAcetam 500 MG/5 ML ORAL SOLUTION (UNIT-DOSE CUPS) GT SCH ×2 (09:34→23:42)
[2018-01-19] MEDS: LACTOBACILLUS ACIDOPHILUS 1 TABLET GT SCH (09:35)
[2018-01-19] MEDS: MIDODRINE HCL 5 MG TABLET GT SCH ×3 (09:35→18:26)
[2018-01-19] MEDS: RANITIDINE HCL 150 MG/10 ML UNIT-DOSE GT SCH (09:35)
[2018-01-19] MEDS: FERROUS SO4 300 MG/5 ML ORAL SOLN UNIT DOSE CUPS GT SCH ×2 (09:35→23:14)
[2018-01-19] MEDS: MAGNESIUM OXIDE 400 MG TABLET (FP) GT SCH ×2 (09:35→23:14)
[2018-01-19] MEDS: VALPROATE SODIUM 250 MG/5 ML UNIT DOSE CUP GT SCH ×2 (09:35→23:14)
[2018-01-19] MEDS: GABAPENTIN 250 MG/5 ML ORAL SOLUTION, 470 ML BOTTLE PO SCH ×2 (09:37→23:42)
[2018-01-19] MEDS: LYTES/YERBA SANTA 240 ML BOTTLE MM SCH (09:38)
[2018-01-19] MEDS: ASCORBIC ACID 500 MG TABLET (FP) GT SCH (09:39)
[2018-01-19] MEDS: COLLAGENASE CLOSTRIDIUM HIST. 30 GRAMS TUBE TP SCH (10:10)
--- NOTE | 2018-01-19 12:09 | PN ---
Progress Note (short form) - Note Progress Note: Vented, poorly responsive. Intermittent fever. Vented on volume assist control with 60% FiO2. Intake & Output 01/16/18 01/17/18 01/18/18 01/19/18 23:59 23:59 23:59 23:59 Intake Total 1280 1000 1940 0 Output Total 1200 2300 2600 400 Balance 80 -1300 -660 -400 Last Vital Signs Temp Pulse Resp BP Pulse Ox 97.6 F 95 H 24 90/51 96 01/19/18 09:44 01/19/18 09:44 01/19/18 10:20 01/19/18 09:44 01/17/18 21:00 Active Medications Acetaminophen (Tylenol Oral Solution -) 650 mg GT Q6H PRN PRN Reason: PAIN OR FEVER Last Admin: 01/18/18 23:16 Dose: 650 mg Albuterol Sulfate (Ventolin 0.083% Nebulizer Soln -) 1 amp NEB RQID [facility] Last Admin: 01/19/18 08:19 Dose: 1 amp Amino Acids (Prosource No Carb Liquid Pkt) 30 ml GT BID@0800,1730 [facility] Last Admin: 01/19/18 08:50 Dose: 30 ml Ascorbic Acid (Vitamin C -) 500 mg GT DAILY [facility] Last Admin: 01/19/18 09:39 Dose: 500 mg Collagenase (Santyl -) 1 applic TP DAILY [facility] Last Admin: 01/18/18 11:25 Dose: 1 applic Ergocalciferol (Drisdol Oral Solution -) 50,000 units PO Fr@1000 [facility] Ferrous Sulfate (Feosol) 300 mg GT BID [facility] Last Admin: 01/19/18 09:35 Dose: 300 mg Gabapentin (Neurontin Oral Liquid -) 150 mg PO BID [facility] Last Admin: 01/19/18 09:37 Dose: 150 mg Heparin Sodium (Porcine) (Heparin -) 5,000 unit SQ TID [facility] Last Admin: 01/19/18 06:29 Dose: 5,000 unit Lactobacillus Acidophilus (Bacid -) 2 tab GT DAILY [facility] Last Admin: 01/19/18 09:35 Dose: 2 tab Levetiracetam (Keppra Oral Solution -) 1,500 mg GT BID [facility] Last Admin: 01/19/18 09:34 Dose: 1,500 mg Magnesium Oxide (Mag-Ox -) 400 mg GT BID [facility] Last Admin: 01/19/18 09:35 Dose: 400 mg Midodrine (Proamatine -) 5 mg GT TID-MID [facility] Last Admin: 01/19/18 09:35 Dose: 5 mg Pneumococcal 13-Valent Conj Vacc (Prevnar 13 Syringe -) 0.5 ml IM .ONCE ONE Stop: 01/15/18 17:46 Ranitidine HCl (Zantac Oral Solution -) 150 mg GT DAILY [facility] Last Admin: 01/19/18 09:35 Dose: 150 mg Saliva Substitute (Mouthkote Solution -) 1 applic MM DAILY [facility] Last Admin: 01/19/18 09:38 Dose: 1 applic Valproate Sodium (Depakene -) 750 mg GT BID [facility] Last Admin: 01/19/18 09:35 Dose: 750 mg Vancomycin HCl (Vancomycin Oral Solution) 250 mg PO Q6HPO [facility] Last Admin: 01/19/18 06:29 Dose: 250 mg Gen: vented, poorly responsive Heart: RRR Lung: scattered rhonchi Abd: soft, nontender Ext: + edema, contracted Laboratory Results - last 24 hr 01/18/18 08:22 Plt Count 398 D A/P Chronic Respiratory Failure Pneumonia Sacral Decubitus Ulcer Infection +C diff Ag Sepsis Functional Quadriplegia Seizure Disorder Anemia - antibiotics per ID - wound care - taper fio2 to keep Spo2 >90% - continue volume assist control - not a candidate for weaning due to high oxygen requirements and poor mental status - enteral feeds - DVT/GI prophylaxis - continue palliative care discussions Dr Guzman
--- NOTE | 2018-01-19 13:59 | PN ---
Progress Note (short form) - Note Progress Note: poorly responsive now running a temp Vital Signs - noted Current Medications Generic Name Dose Route Start Last Admin Trade Name Freq PRN Reason Stop Dose Admin Albuterol Sulfate 1 amp 01/10/18 22:45 01/17/18 08:15 Ventolin 0.083% Nebulizer Soln - NEB 1 amp RQID RADHA Administration Amino Acids 30 ml 01/13/18 17:30 01/17/18 08:30 Prosource No Carb Liquid Pkt GT 30 ml BID@0800,1730 RADHA Administration Ascorbic Acid 500 mg 01/11/18 10:00 01/17/18 10:56 Vitamin C - GT 500 mg DAILY RADHA Administration Collagenase 1 applic 01/11/18 10:00 01/17/18 11:00 Santyl - TP 1 applic DAILY RADHA Administration Ergocalciferol 50,000 units 01/16/18 10:00 01/16/18 11:03 Drisdol Oral Solution - PO 50,000 units Fr@1000 RADHA Administration Ferrous Sulfate 300 mg 01/11/18 10:00 01/17/18 10:55 Feosol GT 300 mg BID RADHA Administration Gabapentin 150 mg 01/11/18 10:00 01/17/18 10:59 Neurontin Oral Liquid - PO 150 mg BID RADHA Administration Heparin Sodium (Porcine) 5,000 unit 01/10/18 22:00 01/17/18 06:05 Heparin - SQ 5,000 unit TID RADHA Administration Lactobacillus Acidophilus 2 tab 01/11/18 10:00 01/17/18 10:55 Bacid - GT 2 tab DAILY RADHA Administration Levetiracetam 1,500 mg 01/10/18 22:45 01/17/18 10:56 Keppra Oral Solution - GT 1,500 mg BID RADHA Administration Magnesium Oxide 400 mg 01/11/18 10:00 01/17/18 10:56 Mag-Ox - GT 400 mg BID RADHA Administration Midodrine 5 mg 01/10/18 10:00 01/17/18 10:55 Proamatine - GT 5 mg TID-MID RADHA Administration Oxycodone HCl 5 mg 01/14/18 11:42 01/14/18 12:03 Roxicodone - PO 5 mg Q6H PRN Administration PAIN LEVEL 4 - 6 Pneumococcal 13-Valent Conj Vacc 0.5 ml 01/15/18 17:45 Prevnar 13 Syringe - IM 01/15/18 17:46 .ONCE ONE Ranitidine HCl 150 mg 01/11/18 10:00 01/17/18 10:55 Zantac Oral Solution - GT 150 mg DAILY RADHA Administration Saliva Substitute 1 applic 01/13/18 14:00 01/17/18 10:56 Mouthkote Solution - MM 1 applic DAILY RADHA Administration Valproate Sodium 750 mg 01/11/18 10:00 01/17/18 10:55 Depakene - GT 750 mg BID RADHA Administration Vancomycin HCl 250 mg 01/12/18 18:00 01/17/18 06:05 Vancomycin Oral Solution PO 250 mg Q6HPO RADHA Administration S1 S2 RRR Lungs- decreased edema face no abd tenderness no edema PLAN supportive care treat cdiff palliative care unable to reach HCP -- will need to make a decision about pt 's care Problem List - Problems (1) Clostridium difficile diarrhea Code(s): A04.72 - ENTEROCOLITIS D/T CLOSTRIDIUM DIFFICILE, NOT SPCF RECUR (2) Functional quadriplegia Code(s): R53.2 - FUNCTIONAL QUADRIPLEGIA (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
[2018-01-20] MEDS: HEPARIN NA (PORCINE) 5,000 UNITS/ML 1ML VIAL SQ SCH ×3 (06:08→21:23)
[2018-01-20] MEDS: COLLAGENASE CLOSTRIDIUM HIST. 30 GRAMS TUBE TP SCH (10:00)
[2018-01-20] MEDS ORDERED: PT OWN MED DRAWER 7, Y5N ONE ×2 (10:06→20:47)
[2018-01-20] MEDS: VALPROATE SODIUM 250 MG/5 ML UNIT DOSE CUP GT SCH ×2 (10:16→21:23)
[2018-01-20] MEDS: levETIRAcetam 500 MG/5 ML ORAL SOLUTION (UNIT-DOSE CUPS) GT SCH ×2 (10:17→21:23)
[2018-01-20] MEDS: FERROUS SO4 300 MG/5 ML ORAL SOLN UNIT DOSE CUPS GT SCH ×2 (10:17→21:22)
[2018-01-20] MEDS: MAGNESIUM OXIDE 400 MG TABLET (FP) GT SCH ×2 (10:17→21:22)
[2018-01-20] MEDS: ASCORBIC ACID 500 MG TABLET (FP) GT SCH (10:17)
[2018-01-20] MEDS: AMINO ACIDS/PROTEIN HYDROLYS 30 ML LIQUID.PKT GT SCH ×2 (10:17→17:08)
[2018-01-20] MEDS: RANITIDINE HCL 150 MG/10 ML UNIT-DOSE GT SCH (10:17)
[2018-01-20] MEDS: LACTOBACILLUS ACIDOPHILUS 1 TABLET GT SCH (10:17)
[2018-01-20] MEDS: MIDODRINE HCL 5 MG TABLET GT SCH ×3 (10:17→17:07)
[2018-01-20] MEDS: LYTES/YERBA SANTA 240 ML BOTTLE MM SCH (10:18)
[2018-01-20] MEDS: GABAPENTIN 250 MG/5 ML ORAL SOLUTION, 470 ML BOTTLE PO SCH ×2 (10:21→21:22)
--- NOTE | 2018-01-20 11:59 | PN ---
Progress Note (short form) - Note Progress Note: Vented, poorly responsive. Intermittent fever. Vented on volume assist control with 60% FiO2. Intake & Output 01/17/18 01/18/18 01/19/18 01/20/18 23:59 23:59 23:59 23:59 Intake Total 1000 1940 950 Output Total 2300 2600 1300 300 Balance -1300 -660 -350 -300 Last Vital Signs Temp Pulse Resp BP Pulse Ox 98.9 F 101 H 33 H 100/57 95 01/20/18 10:00 01/20/18 10:44 01/20/18 10:45 01/20/18 10:00 01/20/18 10:44 Active Medications Acetaminophen (Tylenol Oral Solution -) 650 mg GT Q6H PRN PRN Reason: PAIN OR FEVER Last Admin: 01/18/18 23:16 Dose: 650 mg Amino Acids (Prosource No Carb Liquid Pkt) 30 ml GT BID@0800,1730 [facility] Last Admin: 01/20/18 10:17 Dose: 30 ml Ascorbic Acid (Vitamin C -) 500 mg GT DAILY [facility] Last Admin: 01/20/18 10:17 Dose: 500 mg Collagenase (Santyl -) 1 applic TP DAILY [facility] Last Admin: 01/19/18 10:10 Dose: 1 applic Ergocalciferol (Drisdol Oral Solution -) 50,000 units PO Fr@1000 RADHA Ferrous Sulfate (Feosol) 300 mg GT BID [facility] Last Admin: 01/20/18 10:17 Dose: 300 mg Gabapentin (Neurontin Oral Liquid -) 150 mg PO BID [facility] Last Admin: 01/20/18 10:21 Dose: 150 mg Heparin Sodium (Porcine) (Heparin -) 5,000 unit SQ TID [facility] Last Admin: 01/20/18 06:08 Dose: 5,000 unit Lactobacillus Acidophilus (Bacid -) 2 tab GT DAILY [facility] Last Admin: 01/20/18 10:17 Dose: 2 tab Levetiracetam (Keppra Oral Solution -) 1,500 mg GT BID [facility] Last Admin: 01/20/18 10:17 Dose: 1,500 mg Magnesium Oxide (Mag-Ox -) 400 mg GT BID [facility] Last Admin: 01/20/18 10:17 Dose: 400 mg Midodrine (Proamatine -) 5 mg GT TID-MID [facility] Last Admin: 01/20/18 10:17 Dose: 5 mg Pneumococcal 13-Valent Conj Vacc (Prevnar 13 Syringe -) 0.5 ml IM .ONCE ONE Stop: 01/15/18 17:46 Ranitidine HCl (Zantac Oral Solution -) 150 mg GT DAILY [facility] Last Admin: 01/20/18 10:17 Dose: 150 mg Saliva Substitute (Mouthkote Solution -) 1 applic MM DAILY [facility] Last Admin: 01/20/18 10:18 Dose: 1 applic Valproate Sodium (Depakene -) 750 mg GT BID [facility] Last Admin: 01/20/18 10:16 Dose: 750 mg Gen: vented, poorly responsive Heart: RRR Lung: scattered rhonchi Abd: soft, nontender Ext: + edema, contracted A/P Chronic Respiratory Failure Pneumonia Sacral Decubitus Ulcer Infection +C diff Ag Sepsis Functional Quadriplegia Seizure Disorder Anemia - antibiotics per ID - wound care - taper fio2 to keep Spo2 >90% - continue volume assist control - not a candidate for weaning due to high oxygen requirements and poor mental status - enteral feeds - DVT/GI prophylaxis - continue palliative care discussions Dr Guzman
[2018-01-20] MEDS: ACETAMINOPHEN 650 MG/20.3 ML ORAL SOLUTION (CUPS) GT PRN (13:01)
--- NOTE | 2018-01-20 14:28 | PN ---
Problem List - Problems (1) Clostridium difficile diarrhea Code(s): A04.72 - ENTEROCOLITIS D/T CLOSTRIDIUM DIFFICILE, NOT SPCF RECUR (2) Functional quadriplegia Code(s): R53.2 - FUNCTIONAL QUADRIPLEGIA (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
[2018-01-21] MEDS: HEPARIN NA (PORCINE) 5,000 UNITS/ML 1ML VIAL SQ SCH ×2 (05:28→14:00)
[2018-01-21] MEDS: AMINO ACIDS/PROTEIN HYDROLYS 30 ML LIQUID.PKT GT SCH ×2 (08:30→17:43)
[2018-01-21] MEDS ORDERED: PT OWN MED DRAWER 7, Y5N ONE (10:58)
[2018-01-21] MEDS: VALPROATE SODIUM 250 MG/5 ML UNIT DOSE CUP GT SCH (11:01)
[2018-01-21] MEDS: FERROUS SO4 300 MG/5 ML ORAL SOLN UNIT DOSE CUPS GT SCH (11:01)
[2018-01-21] MEDS: GABAPENTIN 250 MG/5 ML ORAL SOLUTION, 470 ML BOTTLE PO SCH (11:01)
[2018-01-21] MEDS: RANITIDINE HCL 150 MG/10 ML UNIT-DOSE GT SCH (11:01)
[2018-01-21] MEDS: LYTES/YERBA SANTA 240 ML BOTTLE MM SCH (11:02)
[2018-01-21] MEDS: levETIRAcetam 500 MG/5 ML ORAL SOLUTION (UNIT-DOSE CUPS) GT SCH (11:02)
[2018-01-21] MEDS: MIDODRINE HCL 5 MG TABLET GT SCH ×3 (11:02→17:44)
[2018-01-21] MEDS: ASCORBIC ACID 500 MG TABLET (FP) GT SCH (11:03)
[2018-01-21] MEDS: COLLAGENASE CLOSTRIDIUM HIST. 30 GRAMS TUBE TP SCH (11:03)
[2018-01-21] MEDS: LACTOBACILLUS ACIDOPHILUS 1 TABLET GT SCH (11:03)
[2018-01-21] MEDS: MAGNESIUM OXIDE 400 MG TABLET (FP) GT SCH (11:03)
--- NOTE | 2018-01-21 14:20 | PN ---
Progress Note, Physician History of Present Illness: PULMONARY MINIMALLY RESPONSIVE ,OPENS EYES - Current Medication List Current Medications: Active Medications Acetaminophen (Tylenol Oral Solution -) 650 mg GT Q6H PRN PRN Reason: PAIN OR FEVER Last Admin: 01/20/18 13:01 Dose: 650 mg Amino Acids (Prosource No Carb Liquid Pkt) 30 ml GT BID@0800,1730 [facility] Last Admin: 01/21/18 08:30 Dose: 30 ml Ascorbic Acid (Vitamin C -) 500 mg GT DAILY [facility] Last Admin: 01/21/18 11:03 Dose: 500 mg Collagenase (Santyl -) 1 applic TP DAILY [facility] Last Admin: 01/21/18 11:03 Dose: 1 applic Ergocalciferol (Drisdol Oral Solution -) 50,000 units PO Fr@1000 [facility] Ferrous Sulfate (Feosol) 300 mg GT BID [facility] Last Admin: 01/21/18 11:01 Dose: 300 mg Gabapentin (Neurontin Oral Liquid -) 150 mg PO BID [facility] Last Admin: 01/21/18 11:01 Dose: 150 mg Heparin Sodium (Porcine) (Heparin -) 5,000 unit SQ TID [facility] Last Admin: 01/21/18 05:28 Dose: 5,000 unit Lactobacillus Acidophilus (Bacid -) 2 tab GT DAILY [facility] Last Admin: 01/21/18 11:03 Dose: 2 tab Levetiracetam (Keppra Oral Solution -) 1,500 mg GT BID [facility] Last Admin: 01/21/18 11:02 Dose: 1,500 mg Magnesium Oxide (Mag-Ox -) 400 mg GT BID [facility] Last Admin: 01/21/18 11:03 Dose: 400 mg Midodrine (Proamatine -) 5 mg GT TID-MID [facility] Last Admin: 01/21/18 11:02 Dose: 5 mg Pneumococcal 13-Valent Conj Vacc (Prevnar 13 Syringe -) 0.5 ml IM .ONCE ONE Stop: 01/15/18 17:46 Ranitidine HCl (Zantac Oral Solution -) 150 mg GT DAILY [facility] Last Admin: 01/21/18 11:01 Dose: 150 mg Saliva Substitute (Mouthkote Solution -) 1 applic MM DAILY [facility] Last Admin: 01/21/18 11:02 Dose: 1 applic Valproate Sodium (Depakene -) 750 mg GT BID [facility] Last Admin: 01/21/18 11:01 Dose: 750 mg - Objective Vital Signs: Vital Signs Temperature 98.2 F 01/21/18 05:45 Pulse Rate 103 H 01/21/18 08:29 Respiratory Rate 31 H 01/21/18 10:27 Blood Pressure 93/53 01/21/18 05:45 O2 Sat by Pulse Oximetry (%) 90 L 01/21/18 08:29 Constitutional: Yes: Calm, Thin Eyes: Yes: WNL HENT: Yes: WNL Neck: Yes: Supple (TRACH) Cardiovascular: Yes: Regular Rate and Rhythm, S1, S2 Respiratory: Yes: Mechanically Ventilated, Rhonchi (SCATTERED RHONCHI) Gastrointestinal: Yes: Normal Bowel Sounds, Soft Extremities: Yes: WNL Edema: Yes Labs: CBC, BMP Assessment/Plan Problem List - Problems (1) Fever Code(s): R50.9 - FEVER, UNSPECIFIED (2) Acute and chronic respiratory failure Code(s): J96.20 - ACUTE AND CHR RESP FAILURE, UNSP W HYPOXIA OR HYPERCAPNIA (3) Anemia Code(s): D64.9 - ANEMIA, UNSPECIFIED (4) Chronic respiratory failure Code(s): J96.10 - CHRONIC RESPIRATORY FAILURE, UNSP W HYPOXIA OR HYPERCAPNIA (5) Complication of tracheostomy Code(s): J95.00 - UNSPECIFIED TRACHEOSTOMY COMPLICATION (6) Functional quadriplegia Code(s): R53.2 - FUNCTIONAL QUADRIPLEGIA (7) Pneumonia Code(s): J18.9 - PNEUMONIA, UNSPECIFIED ORGANISM (8) Pressure ulcer Code(s): L89.90 - PRESSURE ULCER OF UNSPECIFIED SITE, UNSPECIFIED STAGE (9) Severe flexion contractures of all joints Code(s): M24.50 - CONTRACTURE, UNSPECIFIED JOINT (10) C-DIF Assessment/Plan CONTINUE CURRENT VENT SETTINGS NOT AN OPTIMAL WEANING CANDIDATE ANTIBIOTICS D/COLEEN BY ID F/U CHEST X-RAYS MONITOR H+H DR KC
--- NOTE | 2018-01-21 14:50 | DS ---
Physical Examination Vital Signs: Vital Signs Temperature 98.2 F 01/21/18 05:45 Pulse Rate 106 H 01/21/18 13:00 Respiratory Rate 16 01/21/18 13:00 Blood Pressure 89/47 01/21/18 13:00 O2 Sat by Pulse Oximetry (%) 90 L 01/21/18 08:29 Labs: CBC, BMP 01/18/18 08:22 01/13/18 06:45 Discharge Summary Reason For Visit: SEPSIS Current Active Problems Clostridium difficile diarrhea (Acute) Fever (Acute) Sepsis (Acute) Condition: Good - Instructions Disposition: ASSISTED FACILITY - Home Medications Comprehensive Discharge Medication List: Ambulatory Orders Albuterol 0.083% Nebulizer Shanae [Ventolin 0.083% Nebulizer Soln -] 1 neb NEB Q6H 11/12/17 Ascorbic Acid [Vitamin C] 500 mg GT DAILY 11/12/17 Collagenase Clostridium Hist. [Santyl] 250 unit TP DAILY 11/12/17 Ergocalciferol (Vitamin D2) [Vitamin D2] 8,000 unit GT FR 11/12/17 Famotidine 20 mg GT DAILY 11/12/17 Ferrous Sulfate *Liquid* [Feosol *Liquid*] 6.8 ml GT BID 11/12/17 Gabapentin 150 mg GT BID 11/12/17 L. Acidophilus/Pectin, Marshall [Acidophilus Capsule] 2 each GT DAILY 11/12/17 Magnesium Oxide 400 mg GT BID 11/12/17 Midodrine HCl 5 mg GT TID 11/12/17 Valproic Acid (As Sodium Salt) [Valproic Acid] 15 ml GT BID 11/12/17 levETIRAcetam [Keppra Oral Solution -] 1,500 mg GT Q12H 11/12/17 Oxycodone HCl 10 mg PO Q6H PRN #0 tab 12/26/17 Diphenhydramine [Benadryl 12.5 MG/5 ML Oral Solution -] 25 mg GT Q8H PRN ml 06/14 Vancomycin Oral Solution 125 mg PO Q6HPO #30 ml 01/08/18
[2018-01-21] MEDS ORDERED: PNEUMOCOCCAL 23 VACCINE 0.5 ML VIAL IM ONE (15:30)
[2018-01-21 17:16] VITALS: BP 97/66; PULSE 93; TEMP 98.8
[2018-01-23] MEDS ORDERED: ERGOCALCIFEROL 8,000 UNITS/ML DROPSBTL PO SCH (10:00)
== END 2018-01-21 19:30 | DRG 720 ==
LOC: JER 16:29 → JERBED 20:23 → J5S 01-12 21:30
PROVIDERS: ADMIT Internal Medicine; ATTEND Internal Medicine
PROC: 5A1955Z Respiratory Ventilation, Greater than 96 Consecutive Hours (ICD-10-PCS; 2018-01-10)
PROC: 3E0H76Z Introduction of Nutritional Substance into Lower GI, Via Natural or Artificial Opening (ICD-10-PCS; principal; 2018-01-13)
DX: A41.9 Sepsis, unspecified organism (principal); D64.9 Anemia, unspecified; K12.2 Cellulitis and abscess of mouth; J18.9 Pneumonia, unspecified organism; E11.9 Type 2 diabetes mellitus without complications; K21.9 Gastro-esophageal reflux disease without esophagitis; J96.11 Chronic respiratory failure with hypoxia; A04.72 Enterocolitis due to Clostridium difficile, not specified as recurrent; G40.909 Epilepsy, unspecified, not intractable, without status epilepticus; R53.2 Functional quadriplegia; D72.829 Elevated white blood cell count, unspecified; M24.50 Contracture, unspecified joint; I95.9 Hypotension, unspecified; L89.154 Pressure ulcer of sacral region, stage 4; L89.213 Pressure ulcer of right hip, stage 3; L89.110 Pressure ulcer of right upper back, unstageable; L89.021 Pressure ulcer of left elbow, stage 1; Z93.0 Tracheostomy status; Z93.1 Gastrostomy status; Z99.11 Dependence on respirator [ventilator] status
CPT/HCPCS: 36415; 36600; 71045-TC-FY; 80048; 80053; 80200; 81003; 82803; 83605; 83735; 84100; 84484; 85025; 85610; 85730; 87040; 87070; 87086; 87186; 87205; 87324; 87449; 90732; 93005; 93010; 94002; 94640; 99285-25; G0009; J0131; J1644; J7030

== ENCOUNTER 2018-02-05 21:08 | Inpatient (IN) | payer OTHER ==
[2018-02-05] MEDS ORDERED: SODIUM CHLORIDE 0.9% 500 ML INFUS.BAG IV ONE (21:28)
--- NOTE | 2018-02-05 21:28 | PDOC ---
History of Present Illness - General Stated Complaint: BLOOD SUGAR PROBLEM Time Seen by Provider: 02/05/18 21:15 History Source: EMS, Sn[facility] Records Exam Limitations: Other (nonverbal) - History of Present Illness Initial Comments: 02/05/18 21:18 This is a 57 YOM with h/o chronic angioedema, DM with neuropathy, epilepsy, iron deficiency anemia, dysphagia, functional quadriplegia, nonverbal and minimally interactive at baseline, and chronic Muhammad use, who was BIBA from [facility] for potassium 7.4 on labs drawn on 02/03/18. On that day he additionally had CXR taken showing old COPD changes and new signs of CHF. The patient is nonverbal per baseline and unable to provide any medical history. He presents with MOLST noting he is DNR, no additional limitations on medical interventions, intubation allowed, long-term feeding tube allowed, antibiotics allowed. Past History - Past Medical History Allergies/Adverse Reactions: Allergies Allergy/AdvReac Type Severity Reaction Status Date / Time No Known Allergies Allergy Verified 02/05/18 23:21 Home Medications: Ambulatory Orders Albuterol 0.083% Nebulizer Shanae [Ventolin 0.083% Nebulizer Soln -] 1 neb NEB Q6H 11/12/17 Ascorbic Acid [Vitamin C] 500 mg GT DAILY 11/12/17 Collagenase Clostridium Hist. [Santyl] 250 unit TP DAILY 11/12/17 Ergocalciferol (Vitamin D2) [Vitamin D2] 8,000 unit GT FR 11/12/17 Famotidine 20 mg GT DAILY 11/12/17 Ferrous Sulfate *Liquid* [Feosol *Liquid*] 6.8 ml GT BID 11/12/17 Gabapentin 150 mg GT BID 11/12/17 L. Acidophilus/Pectin, Kimble [Acidophilus Capsule] 2 each GT DAILY 11/12/17 Magnesium Oxide 400 mg GT BID 11/12/17 Midodrine HCl 5 mg GT TID 11/12/17 Valproic Acid (As Sodium Salt) [Valproic Acid] 15 ml GT BID 11/12/17 levETIRAcetam [Keppra Oral Solution -] 1,500 mg GT Q12H 11/12/17 Oxycodone HCl 10 mg PO Q6H PRN #0 tab 12/26/17 Diphenhydramine [Benadryl 12.5 MG/5 ML Oral Solution -] 25 mg GT Q8H PRN ml 06/14 Vancomycin Oral Solution 125 mg PO Q6HPO #30 ml 01/08/18 Anemia: Yes COPD: No Diabetes: Yes GI Disorders: (gerd) HTN: (hypotention) Seizures: Yes - Surgical History GI Surgery: (g-tube) - Suicide/Smoking/Psychosocial Hx Smoking History: Unknown if ever smoked Have you smoked in the past 12 months: No Hx Alcohol Use: No Drug/Substance Use Hx: No Substance Use Type: None Review of Systems - Review of Systems Able to Perform ROS?: No (patient nonverbal) *Physical Exam - Physical Exam General Appearance: Yes: Other (minimally interactive other than reponding to pain, nonverbal). No: Apparent Distress HEENT: positive: HERIBERTO, Other (marked angioedema same as baseline chronic angioedema (examiner has seen this patient on previous visits to our ED)). negative: Scleral Icterus (R), Scleral Icterus (L) Neck: positive: Trachea midline, Supple. negative: Tender, Rigid Respiratory/Chest: positive: Crackles, Other (coarse breath sounds throughout, no focal area of decreased breath sounds). negative: Respiratory Distress, Rhonchi, Stridor, Wheezing Cardiovascular: positive: Regular Rhythm, Regular Rate, S1, S2. negative: Edema , Murmur Gastrointestinal/Abdominal: positive: Normal Bowel Sounds, Soft. negative: Tender, Organomegaly, Pulsatile Mass, Guarding Male Genitalia: positive: other (Muhammad indwelling with active drainage of urine with sediment) Musculoskeletal: positive: Normal Inspection Extremity: positive: Normal Capillary Refill. negative: Tender, Cyanosis Integumentary: positive: Normal Color, Dry, Warm. negative: Erythema, Rash, Bruising Neurologic: positive: Respond to painful stimul, Other (nonverbal per baseline) . negative: Alert, Normal Response, Motor Strength 5/5 Heart Score/ECG Review #1 02/05/18 22:14 SR rate 84, normal axis and intervals, no peaked T waves, inferior q waves, no other ischemic changes. ED Treatment Course - LABORATORY CBC & Chemistry Diagram: 02/05/18 22:00 02/05/18 22:00 - RADIOLOGY Radiology Studies Ordered: Category Date Time Status CHEST X-RAY PORTABLE* [RAD] Stat Radiology 07/12/18 21:17 Ordered Medical Decision Making - Medical Decision Making Pt p/w hyperkalemia as noted on labs drawn two days ago. Exam: Results as noted in Physical Exam section. DDX IBNLT: hemolyzed sample, pseudohyperkalemia, renal failure, missed HD, cell (e.g. rhabdo, burn, crush, tumor lysis, hemolysis), medications (ACEI, ARB , NSAIDs, WINKLER-2 inhibitors, Bactrim, potassium-sparing diuretics), etc. W/U ordered: EKG CBCD CMP Mg Phos Troponin CK CKMB TX ordered: Vancomycin, Zosyn, IVF No tx for hyperkalemia at this time as patient does not have EKG changes. Will recheck CMP here and then tx accordingly. Gave only 1 liter bolus NS and no additional fluid as patient's CXR from [facility] noted CHF. Patient maintaining MAP 60 or above; will re-evaluate need for additional IVF if MAP drops <60. EKG: Reviewed; results as noted in ECG Review section. CXR: Pulmonary vascular congestion, suboptimal study 2/2 positioning Laboratory Tests 02/05/18 02/05/18 02/05/18 22:00 22:00 22:00 WBC 17.9 H RBC 2.14 L Hgb 6.5 L* Hct 20.6 L MCV 96.2 H MCH 30.5 MCHC 31.7 L RDW 19.3 H Plt Count 370 MPV 13.1 H Absolute Neuts (auto) 13.7 Neutrophils % 76.5 Lymphocytes % 13.7 D Monocytes % 7.5 Eosinophils % 2.0 Basophils % 0.3 Nucleated RBC % 0 Platelet Estimate Adequate Platelet Comment Polychromasia 1+ Poikilocytosis 1+ Anisocytosis 1+ Macrocytosis 1+ Target Cells 1+ VBG pH POC VBG pCO2 POC VBG pO2 Mixed VBG HCO3 Sodium 137 Potassium 4.9 Chloride 99 Carbon Dioxide 34 H D Anion Gap 4 L BUN 22 H Creatinine 0.6 L Creat Clearance w eGFR > 60 Random Glucose 89 D Lactic Acid Calcium 8.8 Phosphorus 4.1 Magnesium 2.2 Total Bilirubin 0.7 AST 63 H D ALT 53 D Alkaline Phosphatase 258 H D Creatine Kinase 35 L Troponin I < 0.02 B-Natriuretic Peptide 1364.25 H Total Protein 8.5 H Albumin 0.9 L Urine Color Diamond Urine Appearance Cloudy Urine pH 7.0 D Ur Specific [place] 1.014 Urine Protein 1+ H Urine Glucose (UA) Negative Urine Ketones Negative Urine Blood Negative Urine Nitrite Negative Urine Bilirubin Negative Urine Urobilinogen Negative Ur Leukocyte Esterase 3+ H Urine WBC (Auto) 132 Urine RBC (Auto) 5 Triple Phos Crystals Rare Urine Mucus Rare Blood Type Antibody Screen Crossmatch 02/05/18 02/05/18 02/05/18 22:00 22:00 22:00 WBC RBC Hgb Hct MCV MCH MCHC RDW Plt Count MPV Absolute Neuts (auto) Neutrophils % Lymphocytes % Monocytes % Eosinophils % Basophils % Nucleated RBC % Platelet Estimate Platelet Comment Polychromasia Poikilocytosis Anisocytosis Macrocytosis Target Cells VBG pH 7.42 POC VBG pCO2 50.2 D POC VBG pO2 51.5 H D Mixed VBG HCO3 31.9 H Sodium Potassium Chloride Carbon Dioxide Anion Gap BUN Creatinine Creat Clearance w eGFR Random Glucose Lactic Acid 1.5 Calcium Phosphorus Magnesium Total Bilirubin AST ALT Alkaline Phosphatase Creatine Kinase Troponin I B-Natriuretic Peptide Total Protein Albumin Urine Color Urine Appearance Urine pH Ur Specific [place] Urine Protein Urine Glucose (UA) Urine Ketones Urine Blood Urine Nitrite Urine Bilirubin Urine Urobilinogen Ur Leukocyte Esterase Urine WBC (Auto) Urine RBC (Auto) Triple Phos Crystals Urine Mucus Blood Type A POSITIVE Antibody Screen Negative Crossmatch See Detail Reassessment: Exam unchanged ADMIT The Pt is unsafe for discharge at this time. They require further hospital observation, workup, and treatment. Microblog sent to [facility] for admission. Spoke with admitting team mechanical service representative KARINA Epps, in agreement Pt to be admitted. Decision to Admit order placed to [facility] covering attending Dr. Avina. For now plan is for vent bed on 5S Med/Surg IP. If pressures drop may need ICU but will re-assess after pRBC xfused and possible Lasix. *DC/Admit/Observation/Transfer Diagnosis at time of Disposition: Ventilator dependent, Functional quadriplegia Anemia Qualifiers: Anemia type: unspecified type Qualified Code(s): D64.9 - Anemia, unspecified UTI (urinary tract infection) Qualifiers: Urinary tract infection type: site unspecified Hematuria presence: without hematuria Qualified Code(s): N39.0 - Urinary tract infection, site not specified CHF exacerbation Qualifiers: Heart failure type: unspecified Qualified Code(s): I50.9 - Heart failure, unspecified - Discharge Dispostion Condition at time of disposition: Guarded Decision to Admit order: Yes - Referrals - Patient Instructions - Post Discharge Activity
[2018-02-05] MEDS ORDERED: VANCOMYCIN 1,500 MG in DEXTROSE 5%-WATER - 250 ML IVPB ONE (22:05)
[2018-02-05] MEDS ORDERED: PIPERACILLIN/TAZOB 4.5 GM 4.5 GM in DEXTROSE 5%-WATER 100 ML IVPB ONE (22:07)
--- NOTE | 2018-02-05 22:19 | PDOC ---
Attending Attestation - HPI HPI: 02/05/18 22:30 The patient is a 57-year-old male with past medical history of chronic respiratory failure s/p trach, DM, GERD, hypotension, and seizure disorder, presents from [facility] with a potassium level of 7.4. As per the [place] records, Patient had lab work and chest X-ray done 2 days prior, with results of elevated potassium and X-ray read of COPD and CHF (newly dx). The patient is sent to the ED for Hyperkalemia workup. No change in baseline mental status. Allergies: NKDA Social history: Unknown Surgical history: tracheostomy, G-tube, craniectomy, peg tube, dan in place and IVC filter PCP: None reported. - Physicial Exam PE: 02/05/18 22:30 GENERAL:Baseline responds to tactile and verbal stimulus. in no acute distress HEAD: No signs of trauma EYES: PERRLA, EOMI, sclera anicteric, conjunctiva clear ENT: (+) Trach in place w/ yellow discharge surrounding the trach. (+) Chronic angioedema around the lips and tongue. Auricles normal inspection, hearing grossly normal, nares patent, oropharynx clear without exudates. Moist mucosa NECK: Normal ROM, supple, no lymphadenopathy, JVD, or masses LUNGS: (+) Coarse breath bilaterally No wheezes, and no crackles HEART: Regular rate and rhythm, normal S1 and S2, no murmurs, rubs or gallops ABDOMEN: (+) Peg in place, epigastric region without surrounding erythema. Soft , nontender, normoactive bowel sounds. No guarding, no rebound. No masses. (+ ) Dan in place with thick crayon looking urine. EXTREMITIES: Extended arms and legs. Normal range of motion, no edema. No clubbing or cyanosis. No cords, erythema, or tenderness NEUROLOGICAL: Cranial nerves II through XII grossly intact. SKIN: Warm, Dry, normal turgor, no rashes or lesions noted. - Medical Decision Making 02/05/18 22:31 Documentation prepared by Keyana Santizo, acting as medical director of hospice for Salma Islas DO. <Keyana Santizo - Last Filed: 02/05/18 22:38> - Resident Resident Name: Kari Ramirez - ED Attending Attestation I have performed the following: I have examined & evaluated the patient, The case was reviewed & discussed with the resident, I agree w/resident's findings & plan, Exceptions are as noted - Medical Decision Making 02/05/18 22:16 I, Dr. Salma Islas, DO, attest that this document has been prepared under my direction and personally reviewed by me in its entirety. I further attest, that it accurately reflects all work, treatment, procedures and medical decision -making performed by me. 02/05/18 22:16 a/p: 57yo male with chronic trach, peg, dan presents hypotensive with outpt labs that show an elevated K -outpt lab showed a K of 7.4 -per outpt paperowrk from [facility] shows a physicians note of elevated wbc -coarse bs on exam -purulent urine from dan -will start iv abx -ivf hydration -will repeat labs -sinus on monitor -will monitor and reassess 02/05/18 23:22 pt with hgb 6.5 uti on labs -wbc of 17 will order transfusion <Salma Islas - Last Filed: 02/05/18 23:23> Heart Score/ECG Review - ECG Intrepretation Comment:: 02/05/18 22:18 sinus at 84, nl axis, q waves inferior that are age indeterminate, no acute st/ t wave findings <Salma Islas - Last Filed: 02/05/18 23:23>
[2018-02-05 22:29] LABS: BASO % 0.3 % (0-2.0); LYMPH % 13.7 % (8-40); MCH 30.5 pg (25.7-33.7); MCHC 31.7 g/dl (32.0-35.9); MEAN CELL VOLUME 96.2 fl (80-96); MONO % 7.5 % (3.8-10.2); NEUT % 76.5 % (42.8-82.8); RBC 2.14 M/mm3 (4.00-5.60); RDW 19.3 % (11.9-15.9); WHITE BLOOD COUNT 17.9 K/mm3 (4.0-10.0)
[2018-02-05 22:32] LABS: ADD RBC MORPHOLOGY YES; HEMATOCRIT 20.6 % (35.4-49); HEMOGLOBIN 6.5 GM/dL (11.7-16.9)
[2018-02-05 22:39] LABS: URINE APPEARANCE CLOUDY; URINE BILIRUBIN NEGATIVE (<2.0 mg/dL); URINE COLOR AMBER; URINE GLUCOSE (UA) NEGATIVE (NEGATIVE); URINE KETONE NEGATIVE (NEGATIVE); URINE NITRITE NEGATIVE (NEGATIVE); URINE UROBILINOGEN NEGATIVE mg/dL (0.2-1.0)
[2018-02-05 22:40] LABS: VENOUS PC02 50.2 mmHg (38-52); VENOUS PH 7.42 (7.32-7.42); VENOUS PO2 51.5 mmHg (28-48)
[2018-02-05 22:41] LABS: URINE LEUK ESTERASE 3+ (NEGATIVE); URINE PROTEIN 1+ (NEGATIVE)
[2018-02-05 22:44] LABS: TRIPLE PHOSPHATE CRYSTAL RARE /hpf (NONE SEEN); URINE MUCUS RARE
[2018-02-05 23:18] VITALS: BMI 27.3
[2018-02-05 23:21] LABS: MEAN PLT VOLUME 13.1 fl (7.5-11.1); PLATELET COUNT 370 K/MM3 (134-434)
[2018-02-05 23:22] LABS: ANISOCYTOSIS 1+; MACROCYTOSIS 1+; PLATELET ESTIMATE ADEQUATE; TARGET CELLS 1+
[2018-02-05] MEDS ORDERED: PIPERACILLIN/TAZOB 4.5 GM 4.5 GM/100 ML BAG IVPB ONE (23:23)
[2018-02-05 23:26] LABS: ANION GAP 4 (8-16); BILIRUBIN,TOTAL 0.7 mg/dL (0.2-1.0); BLOOD UREA NITROGEN 22 mg/dL (7-18); CALCIUM 8.8 mg/dL (8.5-10.1); CHLORIDE 99 mmol/L (98-107); CO2 34 mmol/L (21-32); CREATININE 0.6 mg/dL (0.7-1.3); GLUCOSE,RANDOM 89 mg/dL (74-106); MAGNESIUM 2.2 mg/dL (1.8-2.4); PHOSPHOROUS 4.1 mg/dL (2.5-4.9); POTASSIUM 4.9 mmol/L (3.5-5.1); SGOT/AST 63 U/L (15-37); SGPT/ALT 53 U/L (12-78); SODIUM 137 mmol/L (136-145); TOT PROT 8.5 g/dl (6.4-8.2)
[2018-02-05 23:29] LABS: ALK PHOS 258 U/L (45-117); N-TERMINAL BNP 1364.25 pg/ml (5-125)
[2018-02-05 23:30] LABS: ALBUMIN 0.9 g/dl (3.4-5.0)
[2018-02-05] MEDS ORDERED: FUROSEMIDE 40 MG/4 ML INJECTABLE VIAL IVPUSH ONE (23:45)
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
--- NOTE | 2018-02-06 08:48 | EKG ---
Test Reason : Blood Pressure : / mmHG Vent. Rate : 084 BPM Atrial Rate : 084 BPM P-R Int : 110 ms QRS Dur : 090 ms QT Int : 380 ms P-R-T Axes : 069 047 050 degrees QTc Int : 449 ms SINUS RHYTHM WITH SHORT IN POSSIBLE INFERIOR INFARCT , AGE UNDETERMINED (VS. PSEUDOINFARCT PATTERN SECONDARY TO PREEXCITATION) ABNORMAL ECG CLINICAL CORRELATION IS RECOMMENDED Confirmed by KELL URBINA MD ([id number]) on 02/06/2018 8:48:40 AM Referred By: Confirmed By:KELL URBINA MD
[2018-02-06] MEDS ORDERED: PIPERACILLIN/TAZOB 4.5 GM 4.5 GM in DEXTROSE 5%-WATER 100 ML IVPB ONE (09:00)
[2018-02-06] MEDS ORDERED: PIPERACILLIN/TAZOB 4.5 GM 4.5 GM in DEXTROSE 5%-WATER 100 ML IVPB SCH (09:00)
--- NOTE | 2018-02-06 09:20 | PN ---
Progress Note (short form) - Note Progress Note: ID Full noted dictated Seen in ER Selected Entries 02/06/18 02/06/18 04:16 06:39 Temperature 98 F Pulse Rate [ 89 Apical] Respiratory 16 Rate O2 Sat by Pulse 99 Oximetry (%) Microbiology 01/18/18 09:35 Blood - Peripheral Venous Blood Culture - Final NO GROWTH AFTER 5 DAYS INCUBATION 01/18/18 08:22 Blood - Peripheral Venous Blood Culture - Final NO GROWTH AFTER 5 DAYS INCUBATION 01/12/18 12:10 Stool Clostridium difficile Antigen (GISELE) - Final 01/12/18 12:10 Stool Clostridium difficile Toxin Assay - Final 01/10/18 18:33 Urine - Urine - Catheterized Urine Culture - Final Enterobacter Aerogenes 01/10/18 09:40 Sputum - Endotrachea Suction/Ventilator Gram Stain - Final 01/10/18 09:40 Sputum - Endotrachea Suction/Ventilator Sputum Culture - Final Pseudomonas Aeruginosa Pseudomonas Aeruginosa#2 Pseudomonas Aeruginosa#3 Laboratory Tests 02/05/18 02/05/18 02/05/18 22:00 22:00 22:00 WBC 17.9 H RBC 2.14 L Hgb 6.5 L* Plt Count 370 ALT 53 D Alkaline Phosphatase 258 H D Urine WBC (Auto) 132 Urine RBC (Auto) 5 Assessment Urinary tract infection Sepsis History of C diff with PCR pos December 2017 Pseudomonas colonization of trach Vent dependent Plan Pending cultures Ceftriaxone 2 grs daily Ant CORONADO Problem List - Problems (1) Anemia Code(s): D64.9 - ANEMIA, UNSPECIFIED Qualifiers: Anemia type: unspecified type Qualified Code(s): D64.9 - Anemia, unspecified (2) UTI (urinary tract infection) Code(s): N39.0 - URINARY TRACT INFECTION, SITE NOT SPECIFIED Qualifiers: Urinary tract infection type: site unspecified Hematuria presence: without hematuria Qualified Code(s): N39.0 - Urinary tract infection, site not specified (3) Ventilator dependent Code(s): Z99.11 - DEPENDENCE ON RESPIRATOR [VENTILATOR] STATUS (4) Acute and chronic respiratory failure Code(s): J96.20 - ACUTE AND CHR RESP FAILURE, UNSP W HYPOXIA OR HYPERCAPNIA (5) Clostridium difficile diarrhea Code(s): A04.72 - ENTEROCOLITIS D/T CLOSTRIDIUM DIFFICILE, NOT SPCF RECUR
[2018-02-06] MEDS ORDERED: VANCOMYCIN 1,000 MG in DEXTROSE 5%-WATER - 250 ML IVPB SCH (10:00)
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
[2018-02-06] MEDS: VALPROATE SODIUM 250 MG/5 ML UNIT DOSE CUP GT SCH ×2 (11:25→22:21)
[2018-02-06] MEDS: levETIRAcetam 500 MG/5 ML ORAL SOLUTION (UNIT-DOSE CUPS) GT SCH ×2 (11:26→22:21)
[2018-02-06] MEDS: GABAPENTIN 250 MG/5 ML ORAL SOLUTION, 470 ML BOTTLE GT SCH ×2 (11:26→22:21)
[2018-02-06] MEDS: CEFTRIAXONE 2 GM in DEXTROSE 5%-WATER - 50 ML IVPB SCH (11:27)
[2018-02-06] MEDS: ASCORBIC ACID 500 MG/5 ML UNIT DOSE CUP GT SCH (11:28)
[2018-02-06] MEDS: RANITIDINE HCL 150 MG/10 ML UNIT-DOSE GT SCH (11:28)
[2018-02-06 11:51] LABS: BASO % 0.3 % (0-2.0); EOS % 1.2 % (0-4.5); HEMATOCRIT 27.6 % (35.4-49); HEMOGLOBIN 8.9 GM/dL (11.7-16.9); LYMPH % 9.3 % (8-40); MCH 29.8 pg (25.7-33.7); MCHC 32.1 g/dl (32.0-35.9); MEAN CELL VOLUME 92.9 fl (80-96); MEAN PLT VOLUME 12.2 fl (7.5-11.1); MONO % 6.4 % (3.8-10.2); NEUT % 82.8 % (42.8-82.8); PLATELET COUNT 426 K/MM3 (134-434); RBC 2.97 M/mm3 (4.00-5.60); RDW 18.1 % (11.9-15.9); WHITE BLOOD COUNT 27.2 K/mm3 (4.0-10.0)
[2018-02-06 12:15] LABS: ANION GAP 7 (8-16); BLOOD UREA NITROGEN 20 mg/dL (7-18); CALCIUM 8.9 mg/dL (8.5-10.1); CHLORIDE 100 mmol/L (98-107); CO2 30 mmol/L (21-32); CREATININE 0.6 mg/dL (0.7-1.3); GLUCOSE,RANDOM 90 mg/dL (74-106); POTASSIUM 4.7 mmol/L (3.5-5.1); SODIUM 137 mmol/L (136-145)
[2018-02-06 14:58] LABS: PLATELET ESTIMATE SLT INCREASE
[2018-02-06] MEDS: COLLAGENASE CLOSTRIDIUM HIST. 30 GRAMS TUBE TP SCH (15:00)
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
[2018-02-06] MEDS ORDERED: PT OWN MED DRAWER 7, Y5N ONE (21:16)
[2018-02-06] MEDS: ALBUTEROL SO4 0.083% IH SOL 2.5 MG/3 ML VIAL.NEB. NEB SCH (21:45)
--- NOTE | 2018-02-07 05:11 | HOSP ---
Physical Examination Vital Signs: Vital Signs Temperature 97.2 F L 02/06/18 22:00 Pulse Rate 77 02/06/18 22:00 Respiratory Rate 16 02/07/18 02:05 Blood Pressure 108/61 02/06/18 22:00 O2 Sat by Pulse Oximetry (%) 96 02/06/18 21:00 Labs: CBC, BMP 02/06/18 11:45 02/06/18 11:45 Hospitalist Encounter Assessment: FOund to have 1/2 blood culture bottles positive for gram pos cocci in pairs, clusters. Ordered one gram vancomycin stat.
[2018-02-07] MEDS ORDERED: VANCOMYCIN 1 GM PREMIX - 1 GM/200 ML BAG IVPB ONE (05:45)
[2018-02-07] MEDS: ALBUTEROL SO4 0.083% IH SOL 2.5 MG/3 ML VIAL.NEB. NEB SCH ×4 (07:30→20:50)
--- NOTE | 2018-02-07 10:07 | PN ---
Progress Note (short form) - Note Progress Note: NAD trach to vent no distress no diarrhea Vital Signs Period Temp Pulse Resp BP Sys/Guzman Pulse Ox Last 24 Hr 97.2 F-97.6 F 77-96 14-22 87-108/60-68 96-100 tongue sticking out (as usual) trach cor-rrr lungs decreased bs t bases abd soft,nt +GT ext no edema +dan +decubiti CBC, BMP 02/06/18 11:45 02/06/18 11:45 Microbiology 02/05/18 22:00 Blood - Peripheral Venous Blood Culture - Preliminary Pending Organism 02/05/18 22:00 Blood - Peripheral Venous Blood Culture - Preliminary NO GROWTH OBTAINED AFTER 24 HOURS, INCUBATION TO CONTINUE FOR 4 DAYS. cxray left lung obscured by face Current Medications Albuterol Sulfate (Ventolin 0.083% Nebulizer Soln -) 1 amp NEB RQID RADHA Last Admin: 02/07/18 07:30 Dose: 1 amp Ascorbic Acid (Vitamin C Oral Solution -) 500 mg GT DAILY [facility] Last Admin: 02/06/18 11:28 Dose: 500 mg Collagenase (Santyl -) 1 applic TP DAILY RADHA; Protocol Last Admin: 02/06/18 15:00 Dose: 1 applic Gabapentin (Neurontin Oral Liquid -) 150 mg GT BID [facility] Last Admin: 02/06/18 22:21 Dose: 150 mg Ceftriaxone Sodium 2 gm/ (Dextrose) 50 mls @ 100 mls/hr IVPB DAILY RADHA; Protocol Last Admin: 02/06/18 11:27 Dose: 100 mls/hr Levetiracetam (Keppra Oral Solution -) 1,500 mg GT BID RADHA Last Admin: 02/06/18 22:21 Dose: 1,500 mg Ranitidine HCl (Zantac Oral Solution -) 150 mg GT DAILY RADHA Last Admin: 02/06/18 11:28 Dose: 150 mg Valproate Sodium (Depakene -) 750 mg GT BID RADHA Last Admin: 02/06/18 22:21 Dose: 750 mg a/p leukocytosis vancomycin/rocephin f/u cultures multiple ulcers-wound care overall prognosis is poor
[2018-02-07] MEDS ORDERED: DEXTROSE 5%-WATER - 50 ML IVPB ONE (10:41)
[2018-02-07] MEDS: VALPROATE SODIUM 250 MG/5 ML UNIT DOSE CUP GT SCH ×2 (10:44→21:45)
[2018-02-07] MEDS: CEFTRIAXONE 2 GM in DEXTROSE 5%-WATER - 50 ML IVPB SCH (10:44)
[2018-02-07] MEDS: RANITIDINE HCL 150 MG/10 ML UNIT-DOSE GT SCH (10:45)
[2018-02-07] MEDS: levETIRAcetam 500 MG/5 ML ORAL SOLUTION (UNIT-DOSE CUPS) GT SCH ×2 (10:45→21:45)
[2018-02-07] MEDS: ASCORBIC ACID 500 MG/5 ML UNIT DOSE CUP GT SCH (10:48)
[2018-02-07] MEDS: GABAPENTIN 250 MG/5 ML ORAL SOLUTION, 470 ML BOTTLE GT SCH ×2 (10:48→21:45)
[2018-02-07] MEDS: COLLAGENASE CLOSTRIDIUM HIST. 30 GRAMS TUBE TP SCH (10:54)
--- NOTE | 2018-02-07 11:53 | PN ---
Progress Note (short form) - Note Progress Note: PULMONARY Constitutional: Yes: Other (CHRONICALLY ILL IN APPEARANCE) Eyes: No: Sclera Icterus HENT: Yes: Atraumatic Neck: Yes: Other (TRACH IN PLACE) Cardiovascular: Yes: Regular Rate and Rhythm Respiratory: Yes: Rhonchi Gastrointestinal: Yes: Soft, Other (PEG) Extremities: Yes: Other (CONTRACTED/HEEL OFFLOADERS) Neurological: Yes: Pre-Existing Deficit, Other (FUNCTIONAL QUAD) Labs/meds/notes/images reviewed Imaging - Results Chest X-ray: Report Reviewed, Image Reviewed Problem List - Problems (1) Anemia Code(s): D64.9 - ANEMIA, UNSPECIFIED Qualifiers: Anemia type: unspecified type Qualified Code(s): D64.9 - Anemia, unspecified (2) CHF exacerbation Code(s): I50.9 - HEART FAILURE, UNSPECIFIED Qualifiers: Heart failure type: unspecified Qualified Code(s): I50.9 - Heart failure, unspecified (3) Functional quadriplegia Code(s): R53.2 - FUNCTIONAL QUADRIPLEGIA (4) UTI (urinary tract infection) Code(s): N39.0 - URINARY TRACT INFECTION, SITE NOT SPECIFIED Qualifiers: Urinary tract infection type: site unspecified Hematuria presence: without hematuria Qualified Code(s): N39.0 - Urinary tract infection, site not specified (5) Ventilator dependent Code(s): Z99.11 - DEPENDENCE ON RESPIRATOR [VENTILATOR] STATUS (6) Acute and chronic respiratory failure Code(s): J96.20 - ACUTE AND CHR RESP FAILURE, UNSP W HYPOXIA OR HYPERCAPNIA (7) Chronic respiratory failure Code(s): J96.10 - CHRONIC RESPIRATORY FAILURE, UNSP W HYPOXIA OR HYPERCAPNIA Assessment/Plan CONTINUE CURRENT VENT SETTINGS CHECK PANCULTURE IV ANTIBIOTICS/BRONCHODILATORS/FREQUENT SUCTIONING KEEP HGB EQUAL TO OR GREATER THAN 8GMS ID CONSULT NOTED WILL FOLLOW Marshall ROMAN MD Problem List - Problems (1) Anemia Code(s): D64.9 - ANEMIA, UNSPECIFIED Qualifiers: Anemia type: unspecified type Qualified Code(s): D64.9 - Anemia, unspecified (2) CHF exacerbation Code(s): I50.9 - HEART FAILURE, UNSPECIFIED Qualifiers: Heart failure type: unspecified Qualified Code(s): I50.9 - Heart failure, unspecified (3) Functional quadriplegia Code(s): R53.2 - FUNCTIONAL QUADRIPLEGIA (4) UTI (urinary tract infection) Code(s): N39.0 - URINARY TRACT INFECTION, SITE NOT SPECIFIED Qualifiers: Urinary tract infection type: site unspecified Hematuria presence: without hematuria Qualified Code(s): N39.0 - Urinary tract infection, site not specified (5) Ventilator dependent Code(s): Z99.11 - DEPENDENCE ON RESPIRATOR [VENTILATOR] STATUS (6) Acute and chronic respiratory failure Code(s): J96.20 - ACUTE AND CHR RESP FAILURE, UNSP W HYPOXIA OR HYPERCAPNIA (7) Chronic respiratory failure Code(s): J96.10 - CHRONIC RESPIRATORY FAILURE, UNSP W HYPOXIA OR HYPERCAPNIA
--- NOTE | 2018-02-07 12:03 | PN ---
Progress Note (short form) - Note Progress Note: patient seen and examined. patient well known to me from previous admissions. Awake comfortable. No distress. ventilatory dependent. Nonverbal Vital Signs Temp 97.6 F 02/07/18 05:52 Pulse 96 H 02/07/18 07:54 Resp 16 02/07/18 11:14 BP 102/68 02/07/18 05:52 Pulse Ox 98 02/07/18 11:13 Intake & Output 02/06/18 02/06/18 02/07/18 11:59 23:59 11:59 Intake Total 100 400 Output Total 1250 600 Balance -1150 -200 Intake: IVPB 100 Oral 400 Output: Urine 1250 600 Muhammad 1250 600 Other: Voiding Method Indwelling Catheter Indwelling Catheter Incontinent Bowel Movement No No Active Medications Albuterol Sulfate (Ventolin 0.083% Nebulizer Soln -) 1 amp NEB RQID [facility] Last Admin: 02/07/18 11:14 Dose: 1 amp Ascorbic Acid (Vitamin C Oral Solution -) 500 mg GT DAILY [facility] Last Admin: 02/07/18 10:48 Dose: 500 mg Collagenase (Santyl -) 1 applic TP DAILY [facility]; Protocol Last Admin: 02/07/18 10:54 Dose: 1 applic Gabapentin (Neurontin Oral Liquid -) 150 mg GT BID [facility] Last Admin: 02/07/18 10:48 Dose: 150 mg Ceftriaxone Sodium 2 gm/ (Dextrose) 50 mls @ 100 mls/hr IVPB DAILY [facility]; Protocol Last Admin: 02/07/18 10:44 Dose: 100 mls/hr Vancomycin HCl (Vancomycin 1 Gm Premix -) 1 gm in 200 mls @ 133.333 mls/hr IVPB DAILY@1000 [facility]; Protocol Levetiracetam (Keppra Oral Solution -) 1,500 mg GT BID [facility] Last Admin: 02/07/18 10:45 Dose: 1,500 mg Ranitidine HCl (Zantac Oral Solution -) 150 mg GT DAILY [facility] Last Admin: 02/07/18 10:45 Dose: 150 mg Valproate Sodium (Depakene -) 750 mg GT BID [facility] Last Admin: 02/07/18 10:44 Dose: 750 mg CBC, BMP 02/06/18 11:45 02/06/18 11:45 Microbiology 02/05/18 22:00 Urine Culture - Preliminary Urine - Urine - Catheterized Non Lactose Fermenting Gnb 02/05/18 22:00 Blood Culture - Preliminary Blood - Peripheral Venous Pending Organism 02/05/18 22:00 Blood Culture - Preliminary Blood - Peripheral Venous NO GROWTH OBTAINED AFTER 24 HOURS, INCUBATION TO CONTINUE FOR 4 DAYS. Physical Constitutional: Yes: Other (awake/ no distress)--tongue protruding out--as before Eyes: Yes: Conjunctiva Clear Neck: Yes: Other (s/p trach-- vent) Cardiovascular: Yes: Regular Rate and Rhythm Respiratory: Yes: Diminished Gastrointestinal: Yes: Soft/ non tender Edema: No Wound/Incision: Yes: Other (multple decubitus--- neck/ back/ sacral) assessment and plan sepsis Urinary tract infection Vent dependent Mental retardation Chronic ulcers Continue antibiotics Vent support Contact precautions Pulmonary and ID consults noted and appreciated Local wound care Overall condition poor Will follow Discussed with nursing staff Problem List - Problems (1) Anemia Code(s): D64.9 - ANEMIA, UNSPECIFIED Qualifiers: Anemia type: unspecified type Qualified Code(s): D64.9 - Anemia, unspecified (2) Functional quadriplegia Code(s): R53.2 - FUNCTIONAL QUADRIPLEGIA (3) UTI (urinary tract infection) Code(s): N39.0 - URINARY TRACT INFECTION, SITE NOT SPECIFIED Qualifiers: Urinary tract infection type: site unspecified Hematuria presence: without hematuria Qualified Code(s): N39.0 - Urinary tract infection, site not specified (4) Ventilator dependent Code(s): Z99.11 - DEPENDENCE ON RESPIRATOR [VENTILATOR] STATUS (5) Chronic respiratory failure Code(s): J96.10 - CHRONIC RESPIRATORY FAILURE, UNSP W HYPOXIA OR HYPERCAPNIA (6) Pressure ulcer Code(s): L89.90 - PRESSURE ULCER OF UNSPECIFIED SITE, UNSPECIFIED STAGE (7) Sepsis Code(s): A41.9 - SEPSIS, UNSPECIFIED ORGANISM Qualifiers: Sepsis type: sepsis due to unspecified organism Qualified Code(s): A41.9 - Sepsis, unspecified organism
[2018-02-08] MEDS: ALBUTEROL SO4 0.083% IH SOL 2.5 MG/3 ML VIAL.NEB. NEB SCH ×4 (07:30→20:50)
[2018-02-08 08:11] LABS: BASO % 0.1 % (0-2.0); EOS % 0.7 % (0-4.5); HEMATOCRIT 24.1 % (35.4-49); HEMOGLOBIN 7.9 GM/dL (11.7-16.9); LYMPH % 13.1 % (8-40); MCHC 32.6 g/dl (32.0-35.9); MEAN CELL VOLUME 95.2 fl (80-96); MONO % 7.7 % (3.8-10.2); NEUT % 78.4 % (42.8-82.8); RBC 2.53 M/mm3 (4.00-5.60); RDW 18.7 % (11.9-15.9); WHITE BLOOD COUNT 13.7 K/mm3 (4.0-10.0)
--- NOTE | 2018-02-08 09:06 | PN ---
Progress Note (short form) - Note Progress Note: PULMONARY Constitutional: Yes: Other (CHRONICALLY ILL IN APPEARANCE) Eyes: No: Sclera Icterus HENT: Yes: Atraumatic Neck: Yes: Other (TRACH IN PLACE) Cardiovascular: Yes: Regular Rate and Rhythm Respiratory: Yes: Rhonchi Gastrointestinal: Yes: Soft, Other (PEG) Extremities: Yes: Other (CONTRACTED/HEEL OFFLOADERS) Neurological: Yes: Pre-Existing Deficit, Other (FUNCTIONAL QUAD) Labs/meds/notes/images reviewed Imaging - Results Chest X-ray: Report Reviewed, Image Reviewed Problem List - Problems (1) Anemia Code(s): D64.9 - ANEMIA, UNSPECIFIED Qualifiers: Anemia type: unspecified type Qualified Code(s): D64.9 - Anemia, unspecified (2) CHF exacerbation Code(s): I50.9 - HEART FAILURE, UNSPECIFIED Qualifiers: Heart failure type: unspecified Qualified Code(s): I50.9 - Heart failure, unspecified (3) Functional quadriplegia Code(s): R53.2 - FUNCTIONAL QUADRIPLEGIA (4) UTI (urinary tract infection) Code(s): N39.0 - URINARY TRACT INFECTION, SITE NOT SPECIFIED Qualifiers: Urinary tract infection type: site unspecified Hematuria presence: without hematuria Qualified Code(s): N39.0 - Urinary tract infection, site not specified (5) Ventilator dependent Code(s): Z99.11 - DEPENDENCE ON RESPIRATOR [VENTILATOR] STATUS (6) Acute and chronic respiratory failure Code(s): J96.20 - ACUTE AND CHR RESP FAILURE, UNSP W HYPOXIA OR HYPERCAPNIA (7) Chronic respiratory failure Code(s): J96.10 - CHRONIC RESPIRATORY FAILURE, UNSP W HYPOXIA OR HYPERCAPNIA Assessment/Plan CONTINUE CURRENT VENT SETTINGS URINE CULTURE NOTED IV ANTIBIOTICS/BRONCHODILATORS/FREQUENT SUCTIONING KEEP HGB EQUAL TO OR GREATER THAN 8GMS ID CONSULT NOTED WILL FOLLOW Marshall ROMAN MD Problem List - Problems (1) Anemia Code(s): D64.9 - ANEMIA, UNSPECIFIED Qualifiers: Anemia type: unspecified type Qualified Code(s): D64.9 - Anemia, unspecified (2) CHF exacerbation Code(s): I50.9 - HEART FAILURE, UNSPECIFIED Qualifiers: Heart failure type: unspecified Qualified Code(s): I50.9 - Heart failure, unspecified (3) Functional quadriplegia Code(s): R53.2 - FUNCTIONAL QUADRIPLEGIA (4) UTI (urinary tract infection) Code(s): N39.0 - URINARY TRACT INFECTION, SITE NOT SPECIFIED Qualifiers: Urinary tract infection type: site unspecified Hematuria presence: without hematuria Qualified Code(s): N39.0 - Urinary tract infection, site not specified (5) Ventilator dependent Code(s): Z99.11 - DEPENDENCE ON RESPIRATOR [VENTILATOR] STATUS (6) Acute and chronic respiratory failure Code(s): J96.20 - ACUTE AND CHR RESP FAILURE, UNSP W HYPOXIA OR HYPERCAPNIA (7) Chronic respiratory failure Code(s): J96.10 - CHRONIC RESPIRATORY FAILURE, UNSP W HYPOXIA OR HYPERCAPNIA
[2018-02-08] MEDS ORDERED: DEXTROSE 5%-WATER - 50 ML IVPB ONE (09:59)
[2018-02-08] MEDS ORDERED: PT OWN MED DRAWER 7, Y5N ONE ×2 (09:59→11:17)
[2018-02-08] MEDS: VANCOMYCIN 1 GM PREMIX - 1 GM/200 ML BAG IVPB SCH ×2 (10:12→11:05)
[2018-02-08] MEDS: CEFTRIAXONE 2 GM in DEXTROSE 5%-WATER - 50 ML IVPB SCH (10:12)
[2018-02-08] MEDS: RANITIDINE HCL 150 MG/10 ML UNIT-DOSE GT SCH (10:15)
[2018-02-08] MEDS: ASCORBIC ACID 500 MG/5 ML UNIT DOSE CUP GT SCH (10:15)
[2018-02-08] MEDS: VALPROATE SODIUM 250 MG/5 ML UNIT DOSE CUP GT SCH ×2 (10:15→21:47)
[2018-02-08] MEDS: levETIRAcetam 500 MG/5 ML ORAL SOLUTION (UNIT-DOSE CUPS) GT SCH ×2 (10:15→21:47)
[2018-02-08] MEDS: GABAPENTIN 250 MG/5 ML ORAL SOLUTION, 470 ML BOTTLE GT SCH ×2 (10:17→21:46)
[2018-02-08 10:23] LABS: PLATELET ESTIMATE ADEQUATE
--- NOTE | 2018-02-08 10:34 | PN ---
Progress Note (short form) - Note Progress Note: Pt seen/ examined. comfortable. afebrile Vital Signs Temp 98.2 F 02/08/18 07:42 Pulse 88 02/08/18 08:01 Resp 18 02/08/18 08:01 BP 118/61 02/08/18 07:42 Pulse Ox 98 02/08/18 08:01 Intake & Output 02/07/18 02/07/18 02/08/18 11:59 23:59 11:59 Intake Total 400 850 Output Total 600 700 300 Balance -200 -700 550 Intake: Oral 400 Tube Feeding 550 Tube Irrigant 300 Output: Urine 600 700 300 Dan 600 700 300 Other: Voiding Method Incontinent Indwelling Catheter Indwelling Catheter Bowel Movement No Yes Yes Active Medications Albuterol Sulfate (Ventolin 0.083% Nebulizer Soln -) 1 amp NEB RQID [facility] Last Admin: 02/08/18 07:30 Dose: 1 amp Ascorbic Acid (Vitamin C Oral Solution -) 500 mg GT DAILY [facility] Last Admin: 02/08/18 10:15 Dose: 500 mg Collagenase (Santyl -) 1 applic TP DAILY [facility]; Protocol Last Admin: 02/07/18 10:54 Dose: 1 applic Gabapentin (Neurontin Oral Liquid -) 150 mg GT BID [facility] Last Admin: 02/08/18 10:17 Dose: 150 mg Ceftriaxone Sodium 2 gm/ (Dextrose) 50 mls @ 100 mls/hr IVPB DAILY [facility]; Protocol Last Admin: 02/08/18 10:12 Dose: 100 mls/hr Vancomycin HCl (Vancomycin 1 Gm Premix -) 1 gm in 200 mls @ 133.333 mls/hr IVPB DAILY@1000 [facility]; Protocol Last Admin: 02/08/18 10:12 Dose: 133.333 mls/hr Levetiracetam (Keppra Oral Solution -) 1,500 mg GT BID [facility] Last Admin: 02/08/18 10:15 Dose: 1,500 mg Ranitidine HCl (Zantac Oral Solution -) 150 mg GT DAILY [facility] Last Admin: 02/08/18 10:15 Dose: 150 mg Valproate Sodium (Depakene -) 750 mg GT BID [facility] Last Admin: 02/08/18 10:15 Dose: 750 mg CBC, BMP 02/08/18 07:15 02/06/18 11:45 Microbiology 02/05/18 22:00 Blood Culture - Preliminary Blood - Peripheral Venous Staphylococcus Coagulase Neg 02/05/18 22:00 Blood Culture - Preliminary Blood - Peripheral Venous NO GROWTH OBTAINED AFTER 48 HOURS, INCUBATION TO CONTINUE FOR 3 DAYS. 02/05/18 22:00 Urine Culture - Preliminary Urine - Urine - Catheterized Non Lactose Fermenting Gnb Physical Constitutional: Yes: Other (awake/ no distress)--tongue protruding out--as before Eyes: Yes: Conjunctiva Clear Neck: Yes: Other (s/p trach-- vent) Cardiovascular: Yes: Regular Rate and Rhythm Respiratory: Yes: Diminished Gastrointestinal: Yes: Soft/ non tender Edema: No Wound/Incision: Yes: Other (multple decubitus--- neck/ back/ sacral) assessment and plan sepsis Urinary tract infection Vent dependent Mental retardation Chronic ulcers Anemia Clinically stable discussed with i/d D/c antibiotics and observe Vent support Contact precautions Local wound care Overall condition poor Will follow Discussed with nursing staff also. Maintain dan . Problem List - Problems (1) Anemia Code(s): D64.9 - ANEMIA, UNSPECIFIED Qualifiers: Anemia type: unspecified type Qualified Code(s): D64.9 - Anemia, unspecified (2) Functional quadriplegia Code(s): R53.2 - FUNCTIONAL QUADRIPLEGIA (3) UTI (urinary tract infection) Code(s): N39.0 - URINARY TRACT INFECTION, SITE NOT SPECIFIED Qualifiers: Urinary tract infection type: site unspecified Hematuria presence: without hematuria Qualified Code(s): N39.0 - Urinary tract infection, site not specified (4) Ventilator dependent Code(s): Z99.11 - DEPENDENCE ON RESPIRATOR [VENTILATOR] STATUS (5) Chronic respiratory failure Code(s): J96.10 - CHRONIC RESPIRATORY FAILURE, UNSP W HYPOXIA OR HYPERCAPNIA (6) Pressure ulcer Code(s): L89.90 - PRESSURE ULCER OF UNSPECIFIED SITE, UNSPECIFIED STAGE (7) Sepsis Code(s): A41.9 - SEPSIS, UNSPECIFIED ORGANISM Qualifiers: Sepsis type: sepsis due to unspecified organism Qualified Code(s): A41.9 - Sepsis, unspecified organism
--- NOTE | 2018-02-08 10:45 | PN ---
Progress Note (short form) - Note Progress Note: NAD trach to vent no distress no diarrhea opens eyes does not follow commands Vital Signs Period Temp Pulse Resp BP Sys/Guzman Pulse Ox Last 24 Hr 97.1 F-98.2 F 84-93 16-26 88-119/59-75 98-98 cor-rrr lungs decreased bs at bases abd +gt, nt ext contracted CBC, BMP 02/08/18 07:15 02/06/18 11:45 Microbiology 02/05/18 22:00 Blood - Peripheral Venous Blood Culture - Preliminary Staphylococcus Coagulase Neg 02/05/18 22:00 Blood - Peripheral Venous Blood Culture - Preliminary NO GROWTH OBTAINED AFTER 48 HOURS, INCUBATION TO CONTINUE FOR 3 DAYS. 02/05/18 22:00 Urine - Urine - Catheterized Urine Culture - Preliminary Non Lactose Fermenting Gnb cxray left lung obscured by face Current Medications Albuterol Sulfate (Ventolin 0.083% Nebulizer Soln -) 1 amp NEB RQID [facility] Last Admin: 02/07/18 07:30 Dose: 1 amp Ascorbic Acid (Vitamin C Oral Solution -) 500 mg GT DAILY [facility] Last Admin: 02/06/18 11:28 Dose: 500 mg Collagenase (Santyl -) 1 applic TP DAILY [facility]; Protocol Last Admin: 02/06/18 15:00 Dose: 1 applic Gabapentin (Neurontin Oral Liquid -) 150 mg GT BID [facility] Last Admin: 02/06/18 22:21 Dose: 150 mg Ceftriaxone Sodium 2 gm/ (Dextrose) 50 mls @ 100 mls/hr IVPB DAILY [facility]; Protocol Last Admin: 02/06/18 11:27 Dose: 100 mls/hr Levetiracetam (Keppra Oral Solution -) 1,500 mg GT BID [facility] Last Admin: 02/06/18 22:21 Dose: 1,500 mg Ranitidine HCl (Zantac Oral Solution -) 150 mg GT DAILY [facility] Last Admin: 02/06/18 11:28 Dose: 150 mg Valproate Sodium (Depakene -) 750 mg GT BID [facility] Last Admin: 02/06/18 22:21 Dose: 750 mg a/p leukocytosis-resolved blood culture contaminant d/c vancomycin continue rocephin for now f/u cultures multiple ulcers-wound care overall prognosis is poor
[2018-02-08] MEDS: COLLAGENASE CLOSTRIDIUM HIST. 30 GRAMS TUBE TP SCH (13:55)
[2018-02-09] MEDS: ALBUTEROL SO4 0.083% IH SOL 2.5 MG/3 ML VIAL.NEB. NEB SCH ×3 (07:25→15:14)
[2018-02-09] MEDS ORDERED: PT OWN MED DRAWER 7, Y5N ONE (10:50)
[2018-02-09] MEDS: VALPROATE SODIUM 250 MG/5 ML UNIT DOSE CUP GT SCH (11:29)
[2018-02-09] MEDS: levETIRAcetam 500 MG/5 ML ORAL SOLUTION (UNIT-DOSE CUPS) GT SCH (11:30)
[2018-02-09] MEDS: RANITIDINE HCL 150 MG/10 ML UNIT-DOSE GT SCH (11:30)
[2018-02-09] MEDS: ASCORBIC ACID 500 MG/5 ML UNIT DOSE CUP GT SCH (11:30)
[2018-02-09] MEDS: COLLAGENASE CLOSTRIDIUM HIST. 30 GRAMS TUBE TP SCH (11:30)
[2018-02-09] MEDS: GABAPENTIN 250 MG/5 ML ORAL SOLUTION, 470 ML BOTTLE GT SCH (11:32)
--- NOTE | 2018-02-09 11:42 | PN ---
Progress Note, Physician Chief Complaint: ID Antibiotics stopped yesterday - Current Medication List Current Medications: Active Medications Albuterol Sulfate (Ventolin 0.083% Nebulizer Soln -) 1 amp NEB RQID [facility] Last Admin: 02/09/18 11:09 Dose: 1 amp Ascorbic Acid (Vitamin C Oral Solution -) 500 mg GT DAILY [facility] Last Admin: 02/09/18 11:30 Dose: 500 mg Collagenase (Santyl -) 1 applic TP DAILY [facility]; Protocol Last Admin: 02/09/18 11:30 Dose: 1 applic Gabapentin (Neurontin Oral Liquid -) 150 mg GT BID [facility] Last Admin: 02/09/18 11:32 Dose: 150 mg Levetiracetam (Keppra Oral Solution -) 1,500 mg GT BID [facility] Last Admin: 02/09/18 11:30 Dose: 1,500 mg Ranitidine HCl (Zantac Oral Solution -) 150 mg GT DAILY [facility] Last Admin: 02/09/18 11:30 Dose: 150 mg Valproate Sodium (Depakene -) 750 mg GT BID [facility] Last Admin: 02/09/18 11:29 Dose: 750 mg - Objective Vital Signs: Vital Signs Temperature 98.2 F 02/09/18 10:00 Pulse Rate 102 H 02/09/18 10:00 Respiratory Rate 16 02/09/18 11:08 Blood Pressure 118/70 02/09/18 10:00 O2 Sat by Pulse Oximetry (%) 99 02/09/18 11:08 Labs: CBC, BMP 02/08/18 07:15 02/06/18 11:45 Problem List - Problems (1) Anemia Code(s): D64.9 - ANEMIA, UNSPECIFIED Qualifiers: Anemia type: unspecified type Qualified Code(s): D64.9 - Anemia, unspecified (2) UTI (urinary tract infection) Code(s): N39.0 - URINARY TRACT INFECTION, SITE NOT SPECIFIED Qualifiers: Urinary tract infection type: site unspecified Hematuria presence: without hematuria Qualified Code(s): N39.0 - Urinary tract infection, site not specified (3) Ventilator dependent Code(s): Z99.11 - DEPENDENCE ON RESPIRATOR [VENTILATOR] STATUS (4) Acute and chronic respiratory failure Code(s): J96.20 - ACUTE AND CHR RESP FAILURE, UNSP W HYPOXIA OR HYPERCAPNIA (5) Clostridium difficile diarrhea Code(s): A04.72 - ENTEROCOLITIS D/T CLOSTRIDIUM DIFFICILE, NOT SPCF RECUR Assessment/Plan Microbiology 02/05/18 22:00 Urine - Urine - Catheterized Urine Culture - Final Providencia Stuartii 02/05/18 22:00 Blood - Peripheral Venous Blood Culture - Preliminary Staphylococcus Coagulase Neg 02/05/18 22:00 Blood - Peripheral Venous Blood Culture - Preliminary NO GROWTH OBTAINED AFTER 72 HOURS, INCUBATION TO CONTINUE FOR 2 DAYS. Selected Entries 02/09/18 10:00 Temperature 98.2 F Pulse Rate 102 H Respiratory 14 Rate Blood Pressure 118/70 Laboratory Tests 02/08/18 07:15 WBC 13.7 H Assessment Blood culture contaminant no treatment Providentia ? colonizer Plan Agree reasonable to observe off antibiotics Ant CORONADO
--- NOTE | 2018-02-09 12:11 | PN ---
Progress Note (short form) - Note Progress Note: PULMONARY Vented, poorly responsive. Vital Signs Period Temp Pulse Resp BP Sys/Guzman Pulse Ox Last 24 Hr 96.7 F-98.5 F 82-102 14-22 101-119/59-70 99-100 Gen: vented, poorly responsive Heart: RRR Lung: decreased breath sounds at the bases Abd: soft, nontender Ext: no edema CBC, BMP 02/08/18 07:15 02/06/18 11:45 Active Medications Albuterol Sulfate (Ventolin 0.083% Nebulizer Soln -) 1 amp NEB RQID [facility] Last Admin: 02/09/18 11:09 Dose: 1 amp Ascorbic Acid (Vitamin C Oral Solution -) 500 mg GT DAILY [facility] Last Admin: 02/09/18 11:30 Dose: 500 mg Collagenase (Santyl -) 1 applic TP DAILY [facility]; Protocol Last Admin: 02/09/18 11:30 Dose: 1 applic Gabapentin (Neurontin Oral Liquid -) 150 mg GT BID [facility] Last Admin: 02/09/18 11:32 Dose: 150 mg Levetiracetam (Keppra Oral Solution -) 1,500 mg GT BID [facility] Last Admin: 02/09/18 11:30 Dose: 1,500 mg Ranitidine HCl (Zantac Oral Solution -) 150 mg GT DAILY [facility] Last Admin: 02/09/18 11:30 Dose: 150 mg Valproate Sodium (Depakene -) 750 mg GT BID [facility] Last Admin: 02/09/18 11:29 Dose: 750 mg A/P UTI Sepsis Chronic Respiratory Failure Anoxic Encephalopathy Anemia - s/p antibiotics - inhaled bronchodilators - not an ideal candidate for weaning at this time due to poor mental status - enteral feeds - DVT prophylaxis
--- NOTE | 2018-02-09 13:32 | DS ---
Physical Examination Vital Signs: Vital Signs Temperature 98.2 F 02/09/18 10:00 Pulse Rate 102 H 02/09/18 10:00 Respiratory Rate 16 02/09/18 11:08 Blood Pressure 118/70 02/09/18 10:00 O2 Sat by Pulse Oximetry (%) 99 02/09/18 11:08 Findings/Remarks: comfortable afebrile Constitutional: Yes: No Distress HENT: Yes: Other (tongue protuding out) Neck: Yes: Other (trach) Respiratory: Yes: Diminished Gastrointestinal: Yes: Soft Edema: No Integumentary: Yes: Other (chronic ulcers) Neurological: Yes: Other (awake) Labs: CBC, BMP 02/08/18 07:15 02/06/18 11:45 Discharge Summary Reason For Visit: ANEMIA, UTI Current Active Problems Anemia (Acute) CHF exacerbation (Acute) Functional quadriplegia (Acute) UTI (urinary tract infection) (Acute) Ventilator dependent (Acute) Hospital Course: Pt admitted form [facility] due to anemia / electrolyte imbalance / elevated wbc Transfused treated with abx cultures -ve so far I/D followed not a candidate for aggressive gi work up for anemia Now stable for d/c to [facility] local wound care meds reconcilled discussed with nursing staff/ case packer. Condition: Guarded - Instructions Disposition: RESIDENTIAL FACILITY - Home Medications Comprehensive Discharge Medication List: Ambulatory Orders Albuterol 0.083% Nebulizer Shanae [Ventolin 0.083% Nebulizer Soln -] 1 neb NEB Q6H 11/12/17 Ascorbic Acid [Vitamin C] 500 mg GT DAILY 11/12/17 Collagenase Clostridium Hist. [Santyl] 250 unit TP DAILY 11/12/17 Ergocalciferol (Vitamin D2) [Vitamin D2] 8,000 unit GT FR 11/12/17 Famotidine 20 mg GT DAILY 11/12/17 Ferrous Sulfate *Liquid* [Feosol *Liquid*] 6.8 ml GT BID 11/12/17 Gabapentin 150 mg GT BID 11/12/17 L. Acidophilus/Pectin, [place] [Acidophilus Capsule] 2 each GT DAILY 11/12/17 Magnesium Oxide 400 mg GT BID 11/12/17 Midodrine HCl 5 mg GT TID 11/12/17 Valproic Acid (As Sodium Salt) [Valproic Acid] 15 ml GT BID 11/12/17 levETIRAcetam [Keppra Oral Solution -] 1,500 mg GT Q12H 11/12/17 Oxycodone HCl 10 mg PO Q6H PRN #0 tab 12/26/17 Diphenhydramine [Benadryl 12.5 MG/5 ML Oral Solution -] 25 mg GT Q8H PRN ml 06/14
[2018-02-09 15:19] VITALS: BP 97/58; PULSE 96; TEMP 99.9
== END 2018-02-09 16:47 | DRG 663 ==
LOC: JER 21:08 → JERBED 02-06 00:03 → UNDOADMIN 02-06 00:46 → JERBED 02-06 00:46 → J5S 02-06 18:15
PROVIDERS: ADMIT Internal Medicine; ATTEND Internal Medicine
PROC: 5A1945Z Respiratory Ventilation, 24-96 Consecutive Hours (ICD-10-PCS; principal; 2018-02-06)
PROC: 3E0G76Z Introduction of Nutritional Substance into Upper GI, Via Natural or Artificial Opening (ICD-10-PCS; 2018-02-06)
DX: D50.9 Iron deficiency anemia, unspecified (principal); Z99.11 Dependence on respirator [ventilator] status; J96.20 Acute and chronic respiratory failure, unspecified whether with hypoxia or hypercapnia; R53.2 Functional quadriplegia; T78.3XXA Angioneurotic edema, initial encounter; Z93.0 Tracheostomy status; G93.1 Anoxic brain damage, not elsewhere classified; L89.154 Pressure ulcer of sacral region, stage 4; L89.213 Pressure ulcer of right hip, stage 3; I50.9 Heart failure, unspecified; L89.890 Pressure ulcer of other site, unstageable; Z93.1 Gastrostomy status; E87.5 Hyperkalemia; E87.8 Other disorders of electrolyte and fluid balance, not elsewhere classified; E11.40 Type 2 diabetes mellitus with diabetic neuropathy, unspecified; R47.01 Aphasia; K21.9 Gastro-esophageal reflux disease without esophagitis; G40.909 Epilepsy, unspecified, not intractable, without status epilepticus; N39.0 Urinary tract infection, site not specified; F79 Unspecified intellectual disabilities; Z79.84 Long term (current) use of oral hypoglycemic drugs; Z66 Do not resuscitate
CPT/HCPCS: 36415; 36430; 71045-TC-FY; 80048; 80053; 81003; 81015; 82272; 82550; 82803; 83605; 83735; 83880; 84100; 84484; 85025; 86850; 86900; 86901; 86922; 87040; 87086; 87186; 93005; 93010; 94002; 94640; 99285-25; P9038; P9058